=== PATIENT | female | born 1945 | race African-American/Black ===

== ENCOUNTER 2018-05-22 19:40 | Inpatient (IN) | payer OTHER ==
[~2018-05-22] VITALS: Ht 154.9 cm; Wt 30.4 kg
--- NOTE | 2018-05-22 20:11 | ED GENERAL ADULT ---
History of Present Illness General Chief Complaint: Dyspnea (COPD, CHF, Other) Stated Complaint: BIBA DIFF BREATHING Source: family Exam Limitations: unable to give history Vital Signs & Intake/Output Vital Signs & Intake/Output Vital Signs Date Time Temp Pulse Resp B/P B/P Pulse O2 O2 Flow FiO2 Mean Ox Delivery Rate 05/23 0049 89 22 164/94 96 Nasal 2.0L Cannula 05/22 2319 87 24 177/82 96 Nasal 2.0L Cannula 05/22 2157 100 26 147/73 93 Nasal 2.0L Cannula 05/22 1953 Non ReBreather 05/22 1952 97.0 97 26 165/88 100 Non ReBreather ED Intake and Output 05/23 0000 05/22 1200 Intake Total 0 Output Total Balance 0 Intake, Oral 0 Allergies Coded Allergies: nitrofurantoin (From MACROBID) (NAUSEA 05/23/18) Triage Note: PT BIBA FROM HOME. PER EMS REPORT PT IS ON "[facility]" AND THEY WERE CALLED BY VISITING RN FOR CONCERN OF INCREASED SOB. PER EMS PT IS A FULL CODE. PT ARRIVES IN NRB. SPO2 100%. RESPIRATIONS EVEN BUT LABORED. NSR ON MONITOR. Triage Nurses Notes Reviewed? yes Onset: Gradual Duration: hour(s): Timing: constant HPI: 72-year-old female with a history of Parkinson's, CHF, COPD, on home hospice presenting by ambulance with her daughter who helps to provide the history. The daughter states that she called EMS due to concerns for increased work of breathing. The patient is nonverbal at baseline and is unable to give any history. Patient has recently had a nonproductive cough over the past several days. Is not on any supplemental oxygen at baseline. No documented fevers. No sick contacts. On arrival to the emergency department patient is noted to be hypoxic on room air in the mid to high 80s, placed on 2 L of nasal cannula with improvement to the mid 90s. (Therese Wong) Past History Travel History Traveled to [place] past 21 day No Medical History Any Pertinent Medical History? see below for history Neurological: Parkinson's disease Cardiovascular: CHF Respiratory: COPD Surgical History Surgical History: non-contributory Psychosocial History What is your primary language Serbian Tobacco Use: Cognitive Impairment Family History Hx Contributory? No (Therese Wong) Review of Systems Review of Systems Constitutional: Reports: no symptoms. EENTM: Reports: no symptoms. Respiratory: Reports: see HPI. Cardiovascular: Reports: no symptoms. GI: Reports: no symptoms. Genitourinary: Reports: no symptoms. Musculoskeletal: Reports: no symptoms. Skin: Reports: no symptoms. Neurological/Psychological: Reports: no symptoms. Hematologic/Endocrine: Reports: no symptoms. Immunologic/Allergic: Reports: no symptoms. All Other Systems: Reviewed and Negative (Therese Wong) Physical Exam Physical Exam General Appearance: awake, cachetic, non-verbal Head: atraumatic, normal appearance Eyes: Bilateral: normal appearance. Neck: normal inspection Respiratory: normal breath sounds, lungs clear, mild tachypnea to low 20's Cardiovascular: regular rate/rhythm Gastrointestinal: soft, non-tender Back: normal inspection Extremities: normal inspection Neurologic/Psych: awake Skin: intact, warm/dry Core Measures ACS in differential dx? No CVA/TIA Diagnosis: No Sepsis Present: No Sepsis Focused Exam Completed? No (Thersee Wong) Progress Differential Diagnoses I considered the following diagnoses in my evaluation of the patient: [ Bronchitis versus pneumonia versus PE versus ACS] Plan of Care: Orders Procedure Date/time Status Heart Healthy Diet 05/23 B Active Patient Data 05/[address] in observation 05/23 0002 Active ED Holding Orders 05/23 0002 Active Vital Signs 05/23 0002 Active Code Status 05/23 0002 Active BLOOD CULTURE 05/22 2351 Active Add-on Test (ER Only) 05/22 2144 Active D-DIMER 05/22 2036 Complete B-TYPE NATRIURETIC PEP (BNP) 05/22 2030 Complete TROPONIN LEVEL 05/22 2010 Complete COMPREHENSIVE METABOLIC PANEL 05/22 2010 Complete CBC WITHOUT DIFFERENTIAL 05/22 2010 Complete EKG 05/22 2010 Active Intake & Output 05/22 1950 Active Current Medications Sig/Tootie Start time Last Medication Dose Stop Time Status Admin Sodium Chloride 1,000 ML Q8H 05/22 2315 AC 05/22 (Normal Saline 0.9%) 2320 Laboratory Tests 05/22/18 2103: D-Dimer High Sensitivty 1986 H 05/22/18 2030: Anion Gap 7, Estimated GFR 55 L, BUN/Creatinine Ratio 34.0 H, Glucose 121 H, Calcium 10.3 H, Total Bilirubin 0.7, AST 21, ALT 21, Alkaline Phosphatase 57, Troponin I 0.03, [id number] Pept 619 H, Total Protein 8.2, Albumin 4.2, Globulin 4.0, Albumin/Globulin Ratio 1.1, CBC w Diff NO MAN DIFF REQ, RBC 4.04 L, MCV 88.1, MCH 28.3, MCHC 32.1 L, RDW 18.2 H, MPV 8.6, Gran % 83.5 H, Lymphocytes % 10.4 L, Monocytes % 5.9, Eosinophils % 0.2, Basophils % 0, Absolute Granulocytes 7.5 H, Absolute Lymphocytes 0.9 L, Absolute Monocytes 0.5, Absolute Eosinophils 0, Absolute Basophils 0 Microbiology 05/235 BLOOD: Blood Culture - RECD 05/23 15 BLOOD: Blood Culture - RECD EKG shows sinus tach, trop 0.03 Labs show mild elevation in BNP to the 600s, significant elevation in d-dimer to 1900s, CTA of the chest ordered CTA 1. No pulmonary embolism. 2. Mild emphysema. 3. Diffuse groundglass opacities with a basilar predominance. More focal consolidation dependently in the right lower lobe. Areas of bronchial wall thickening with bronchial filling defects are also noted. The appearance favors pneumonia. Covered with ceftriaxone and azithromycin Labs also showed hypernatremia at 155, ordered for a 500 cc bolus, and then maintenance fluids at 125 an hour, will hydrate slowly given the patient's history of CHF. Discussed with the daughter at length and the daughter states that despite the patient being home hospice that her and the patient's wishes were for her to be a full code. Daughter expresses that she would like all measures taken including IV fluids, IV antibiotics, central line if needed, and resuscitative measures. Discussed with the EDMD and the hospitalist. Will admit to general medicine. Initial ED EKG: rhythm (sinus tach to 105) (Therese Wong) Departure Departure Disposition: STILL A PATIENT Condition: Stable Clinical Impression Primary Impression: Pneumonia Secondary Impressions: Acute hypoxemic respiratory failure, Hypernatremia Departure Forms: Customer Survey General Discharge Information Observation Note Spoke With: Sarah HANSON,Min Physician Advisor Notified: EDOUARD HENRY DO Place Patient In: Non-ED OBS Care Area Rationale for Observation: My rational for observation is as follows [IV antibiotics, supplemental oxygen, hemodynamic monitoring, IV fluids, serial labs for repeat electrolytes, follow- up on blood culture growth]. (Therese Wong) PA/[employer] TEAM LEADER Co-Sign Statement Statement: ED Attending supervision documentation- [X] I saw and evaluated the patient. I have also reviewed all the pertinent lab results and diagnostic results. I agree with the findings and the plan of care as documented in the PA's/[employer] TEAM LEADER's documentation. [] I have reviewed the ED Record and agree with the PA's/[employer] TEAM LEADER's documentation. [] Additions or exceptions (if any) to the PAs/[employer] TEAM LEADER's note and plan are summarized below: [] I saw and personally examined the patient and I agree with the PAs evaluation. She is cachectic with end-stage COPD now presents with pneumonia` (Edouard Henry DO) Critical Care Note Critical Care Note Critical Care Time: 30-74 min (Therese Wong)
[2018-05-22 21:09] LABS: ABSOLUTE BASOPHIL COUNT 0 /CUMM (0.0-0.2); ABSOLUTE EOSINOPHIL COUNT 0 /CUMM (0.0-0.7); ABSOLUTE GRANULOCYTE CT 7.5 /CUMM (1.4-6.5); ABSOLUTE LYMPH COUNT 0.9 /CUMM (1.2-3.4); ABSOLUTE MONOCYTE COUNT 0.5 /CUMM (0.10-0.60); BASOPHIL % 0 % (0.0-2.0); EOSINOPHIL % 0.2 % (0-5); GRANULOCYTE % 83.5 % (42.2-75.2); HEMATOCRIT 35.6 % (37-47); MEAN CORPUSCULAR HGB 28.3 PG (27.0-31.0); MEAN CORPUSCULAR HGB CONC 32.1 G/DL (33.0-37.0); MEAN CORPUSCULAR VOLUME 88.1 FL (81.0-99.0); MEAN PLATELET VOLUME 8.6 FL (7.4-10.4); PLATELET COUNT 347 /CUMM (130-400); RBC DISTRIBUTION WIDTH 18.2 % (11.5-14.5); RED BLOOD CELL CT 4.04 /CUMM (4.20-5.40)
--- NOTE | 2018-05-22 23:40 | CT SCAN REPORT ---
EXAMINATION: CT ANGIOGRAM OF THE CHEST WITH AND WITHOUT CONTRAST (CT PULMONARY ANGIOGRAM FOR PE) CLINICAL INFORMATION: Hypoxia. Elevated d-dimer. COMPARISON: None TECHNIQUE: Prior to contrast administration, noncontrast localization images were obtained. Subsequently, multidetector volumetric imaging was performed from the thoracic inlet to below the diaphragms following the administration of 95 mL Optiray 320 intravenous contrast. No contrast reaction reported. Sagittal, coronal, and MIP oblique sagittal reformatted images were obtained on the CT workstation, uploaded to PACS, and reviewed. Total exam dose-length product 120 mGy-cm. FINDINGS: QUALITY OF STUDY/CONTRAST BOLUS: Satisfactory PULMONARY ARTERIES: No central or segmental pulmonary emboli. THORACIC AORTA: No aneurysm or dissection. Mild atherosclerotic calcifications. LUNG: The central airways demonstrate minimal internal secretions but otherwise are patent. There are filling defects within multiple distal bronchi, particularly in the lower lobes. Mild centrilobular and paraseptal emphysema. Bronchial wall thickening noted with scattered diffuse groundglass opacities. These are greatest in both lower lobes with minimal dependent consolidation in the right lower lobe as well. PLEURA: No pleural effusion or pneumothorax. MEDIASTINUM: Normal heart size. No pericardial effusion. No hilar or mediastinal lymphadenopathy. No evidence of septal bowing or right heart strain. CHEST WALL/AXILLA: No axillary or internal mammary lymphadenopathy. OSSEOUS STRUCTURES: No acute or suspicious osseous abnormality. Mild scoliotic curvature of the spine with multilevel degenerative changes. UPPER ABDOMEN: Lack of intra-abdominal fat limits evaluation with no gross abnormality visualized. No reflux of contrast into the hepatic veins to suggest elevated right heart pressures. IMPRESSION: 1. No pulmonary embolism. 2. Mild emphysema. 3. Diffuse groundglass opacities with a basilar predominance. More focal consolidation dependently in the right lower lobe. Areas of bronchial wall thickening with bronchial filling defects are also noted. The appearance favors pneumonia. VTE: negative
--- NOTE | 2018-05-23 00:27 | History & Physical ---
Cain Mohr 05/23/18 0026: General Information and HPI MD Statement: I have seen and personally examined RAUL SAMSON and documented this H&P. The patient is a 72 year old F who presented with a patient stated chief complaint of [shortness of breath]. Source of Information: family Exam Limitations: unable to give history History of Present Illness: The patient is a 72-year-old female with past medical history significant for COPD, CHF, Parkinson's disease, on home hospice due to shortness of breath. The patient has minimal verbal communication and is not able to give history. She is accompanied by her daughter. The history is provided by her daughter. She has states that since she was at [facility], she noticed that there is something wrong with her respiration and "she told the nurses at hospice that she does not like her respirations". She mentions that her mother has been telling her that somebody's knocking at the door and they are here to take her away (delirium), the daughter shares the same beliefs with her mother. She has states that she has shortness of breath, increased labor of breathing, wet cough, and she has expressed that she has pain in her legs and feet's. The daughter believes that this has happened at [place]. She also states that her mother has not been eating or drinking. She is states that her mother frequently coughs while eating or drinking. She denies any sick contacts recently. On arrival in emergency department her O2 saturation was in the 80s, they placed the patient on 2 L of oxygen nasal cannula, saturation went up to the 90s. Past medical history: COPD, CHF, Parkinson's disease on levodopa, history of pneumonia in 2012 Surgical history: There is stomach was cauterized due to GI bleeding with a hemoglobin of 8 at that time, and blood transfusion Allergies: She is allergic to nitrofurantoin which causes nausea. Family history: I could not obtain any family history. Social history: She does not drink any alcohol. She has smoked 1 PPD since she was teenager and quit in 2015. She denies any recreational drug use for her mother. Imaging: Chest CTA: Has shown no pulmonary emboli, mild emphysema, diffuse groundglass opacities with basilar predominance which is in favor of pneumonia. Allergies/Medications Allergies: Coded Allergies: nitrofurantoin (From MACROBID) (NAUSEA 05/23/18) Compliance With Home Meds: UNKNOWN Observation Initial Note - I have personally examined RAUL SAMSON on 05/23/18 at 0500. The disposition of RAUL SAMSON is uncertain at this time and before a determination can be made, she requires a period of observation for the following reasons [shortness of breath] Past History Travel History Traveled to [place] past 21 day No Medical History Neurological: Parkinson's disease Cardiovascular: CHF Respiratory: COPD Surgical History Surgical History: non-contributory Review of Systems Review of Systems Constitutional: Reports: see HPI. EENTM: Reports: see HPI. Cardiovascular: Reports: see HPI. Respiratory: Reports: see HPI. GI: Reports: see HPI. Genitourinary: Reports: see HPI. Musculoskeletal: Reports: see HPI. Skin: Reports: see HPI. Neurological/Psychological: Reports: see HPI. Hematologic/Endocrine: Reports: see HPI. Immunologic/Allergic: Reports: see HPI. Exam & Diagnostic Data Last 24 Hrs of Vital Signs/I&O Vital Signs Date Time Temp Pulse Resp B/P B/P Pulse O2 O2 Flow FiO2 Mean Ox Delivery Rate 05/23 0202 97.6 80 16 144/86 97 Room Air 05/23 0049 89 22 164/94 96 Nasal 2.0L Cannula 05/22 2319 87 24 177/82 96 Nasal 2.0L Cannula 05/227 100 26 147/73 93 Nasal 2.0L Cannula 05/22 1953 Non ReBreather 05/22 1952 97.0 97 26 165/88 100 Non ReBreather Intake & Output 05/23 0800 05/23 0000 05/22 1600 Intake Total 0 Output Total Balance 0 Intake, Oral 0 Number 0 Bowel Movements Patient 59 lb Weight Physical Exam General Appearance Minimal verbal communication, severly cachectic, not oriented Skin No Rashes Skin Temp/Moisture Exam: Cool/Dry Sepsis Skin Exam (color): Normal for Ethnicity, Cyanotic HEENT Atraumatic, Not able to follow commands, slow upward gaze, with peripheral white ring, and possibly cataract Neck Supple, No LAD Lymphatic Axillary nl, Cervical nl Cardiovascular Regular Rate, Normal S1, Normal S2 Lungs Normal Air Movement, rales in right lower lobe Abdomen Normal Bowel Sounds, No Tenderness, not able to communicate verbally if there is any tenderness Neurological Minimal verbal communication Extremities Normal Pulses, 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 Based on physical examination and interview with her daughter the patient has tachypnea, shortness of breath, worsening general condition. Lab data shows an anemia with hemoglobin of 11.4 with increased RDW to 18.2. The patient has a high d-dimer up to 1985 (pulmonary emboli was ruled out with chest CTA). She has hypernatremia 155, increased chloride 122, potassium 4.0, bicarb 27, normal anion gap. BUN is 34 creatinine is 1.0. Shows prerenal azotemia. Blood sugar 121, calcium 10.3. LFTs within normal limits, surprisingly enough with albumin of 4.2. ProBNP is 619 which is assumed normal for her age. The patient had some urine output once she was moved to the floor. The patient will be observed. She will be treated with IV antibiotic for pneumonia, hydrated, and watch closely for her condition. As Ranked By This Provider Problem List: 1. Acute hypoxemic respiratory failure 2. Hypernatremia 3. Pneumonia 4. COPD (chronic obstructive pulmonary disease) 5. Parkinson disease Core Measures/Misc (06/29) Acute Coronary Syndrome ACS Diagnosis: No Congestive Heart Failure Congestive Heart Failure Diagnosis No Cerebrovascular Accident CVA/TIA Diagnosis: No VTE (View Protocol) VTE Risk Factors Age>40 No Mechanical VTE Prophylaxis d/t N/A MechProphylax Ordered No VTE Pharm Prophylaxis d/t NA PharmProphylax ordered Sepsis (View protocol) Sepsis Present: No If YES complete Sepsis Event Note If YES complete Sepsis Event Note Bam Alba MD 05/23/18 0028: Core Measures/Misc (06/29) Sepsis (View protocol) If YES complete Sepsis Event Note If YES complete Sepsis Event Note Resident Review Statement Other Findings: Patient is a 72-year-old female with past medical history of Parkinson's, CHF, COPD brought in by ambulance from home hospice for concerns of increased shortness of breath. Patient's daughter was present at time of interview and much of the history was obtained from her as patient is minimally verbal. She reports that her mom has been in hospice since February of this year. States she is currently residing at [place]. Daughter reports that she herself was concerned of her mother's breathing over the past few days and noticed increased shortness of breath and a productive cough with white sputum. States that she has not been her usual self over the past few days. Reports decreased appetite over the past week. Reports increased coughing with eating or drinking. Reports her mothe rcomplains of leg and foot pain. States patient has been stating she is hearing someone knocking at her door to take her away. Daughter reportedly states she also believes this to be true. Denies any urinary symptoms, fever/chills, abdominal discomfort or change in bowel movements. Patient in the ED received: IV Tylenol 1 g 1, 500 mL normal saline bolus, ceftriaxone and azithromycin Patient on admission: Vitals: Temperature 90.7, heart rate 87-100, respiration rate 24-26, blood pressure 177/ 82, saturating initially in the 80s on room air and in the 90s on 2 L nasal cannula Gen.: minimally verbal, cachectic HEENT: atraumatic, dry mucosal membranes CVS: RRR, S1 and S2, Lungs: Crackles at lung bases Abdomen: soft, nt, nd, + bs Labs: WBC 9 with 83.5% granulocytes, H&H 11.4 and 35.6, platelet count 347 Sodium: 155, potassium 4.0, chloride 122, bicarbonate 27, BUN 34, creatinine 1.0 , glucose 125, calcium 10.3, LFTs within normal limits, troponin 0.03, BNP 619, d-dimer 1986 Blood cultures pending Chest CTA ruled out pulmonary embolism, mild emphysema and diffuse groundglass opacities with a basilar predominance with a more focal consolidation in the right lower lobe favoring pneumonia. Patient is a 72 y/o female with PMH of COPD, CHF, Parkison's severely cachectic presenting this admission with dyspnea with hypoxia requiring 2L NC (above her baseline- not on oxygen at home) with normal WBC with a left shift, hypernatremia with no previous baseline, mild hypercalcemia, elevated d-dimer and CTA negative for PE however showing RLL consolidation. From the history patient may be aspirating on food which may have led to this current infection. Patient also appears to be dehydrated with hypernatremia. Fluid water deficit was calculated with initial goal to decrease sodium by 6-8 in the next 24 hours. Problems: 1. Delirium likely 2/2 to pneumonia 2. Aspiration pneumonia w/ RLL consolidation 3. Hypernatremia 4. Cachexia with BMP of 11.1 5. H/O COPD, CHF, Parkinsons Plan: Observe on gen med IV fluid hydration to correct sodium slowly Will monitor Na closely Urine osm and Urine lytes Urinalysis and urine cultures Follow up blood cultures IV Unasyn Swallow evaluation Nutrition consult Palliative care consulted Medication reconcilation - please call patient's mcc DVT PPx: ALPs, heparin SQ Sarah HANSON,[place] 05/23/18 0609: General Information and HPI MD Statement: I have seen and personally examined RAUL SAMSON and documented this H&P. The patient is a 72 year old F who presented with a patient stated chief complaint of [failure to thrive]. Source of Information: family Exam Limitations: unable to give history Observation Initial Note - I have personally examined RAUL SAMSON on 05/23/18 at 0609. The disposition of RAUL SAMSON is uncertain at this time and before a determination can be made, she requires a period of observation for the following reasons [] Past History Medical History Neurological: dementia, Parkinson's disease Cardiovascular: CHF Respiratory: COPD Past Family/Social History Psychosocial History Smoking Status: Former Smoker ETOH Use: denies use Illicit Drug Use: denies illicit drug use Employment History Employment Retired Review of Systems Review of Systems Constitutional: Reports: see HPI. Exam & Diagnostic Data Last 24 Hrs of Vital Signs/I&O Vital Signs Date Time Temp Pulse Resp B/P B/P Pulse O2 O2 Flow FiO2 Mean Ox Delivery Rate 05/23 020 97.6 80 16 144/86 97 Room Air 05/23 0049 89 22 164/94 96 Nasal 2.0L Cannula 05/22 2319 87 24 177/82 96 Nasal 2.0L Cannula 05/22 2157 100 26 147/73 93 Nasal 2.0L Cannula 05/22 1953 Non ReBreather 05/22 1952 97.0 97 26 165/88 100 Non ReBreather Intake & Output 05/23 0800 05/23 0000 05/22 1600 Intake Total 0 Output Total Balance 0 Intake, Oral 0 Number 0 Bowel Movements Patient 59 lb Weight Physical Exam General Appearance Minimal verbal communication, severly cachectic, not oriented Skin No Breakdown Skin Temp/Moisture Exam: Cool/Dry Sepsis Skin Exam (color): Cyanotic HEENT Atraumatic, Not able to follow commands, slow upward gaze, with peripheral white ring, and possibly cataract Neck Supple, No LAD Lymphatic Axillary nl, Cervical nl Cardiovascular Regular Rate, Normal S1, Normal S2 Lungs rales in right lower lobe Abdomen Normal Bowel Sounds, No Tenderness, not able to communicate verbally if there is any tenderness Neurological Normal Gait Extremities 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, scant muscle mass Sepsis Peripheral Pulse Location: Dorsalis Pedis Sepsis Peripheral Pulse Exam: Normal Sepsis Cap Refill Exam: <2 Sec Last 24 Hrs of Labs/Hermes: Laboratory Tests 05/22/18 2103: D-Dimer High Sensitivty 1986 H 05/22/18 2030: Anion Gap 7, Estimated GFR 55 L, BUN/Creatinine Ratio 34.0 H, Glucose 121 H, Calcium 10.3 H, Total Bilirubin 0.7, AST 21, ALT 21, Alkaline Phosphatase 57, Troponin I 0.03, Pcs-Z-Pmicvkjepny Pept 619 H, Total Protein 8.2, Albumin 4.2, Globulin 4.0, Albumin/Globulin Ratio 1.1, CBC w Diff NO MAN DIFF REQ, RBC 4.04 L, MCV 88.1, MCH 28.3, MCHC 32.1 L, RDW 18.2 H, MPV 8.6, Gran % 83.5 H, Lymphocytes % 10.4 L, Monocytes % 5.9, Eosinophils % 0.2, Basophils % 0, Absolute Granulocytes 7.5 H, Absolute Lymphocytes 0.9 L, Absolute Monocytes 0.5, Absolute Eosinophils 0, Absolute Basophils 0 Microbiology 05/235 BLOOD: Blood Culture - RECD 05/23 15 BLOOD: Blood Culture - RECD Core Measures/Misc (06/29) Sepsis (View protocol) If YES complete Sepsis Event Note If YES complete Sepsis Event Note Attending MD Review Statement Attending Statement Attending MD Statement: examined this patient, discuss w/resident/PA/ASSEMBLER SANDAL PARTS, agreed w/resident/PA/ASSEMBLER SANDAL [employer]S, amended to note Attending Assessment/Plan: This patient is a 72-year-old female with a significant past medical history for COPD, CHF, Parkinson's disease, on home hospice for end-stage chronic illness. The patient is minimally verbal and is not able to give history. She is accompanied by her daughter. This is the patients first visit to [facility] and has received all of her care in [place]. The daughter states that the patient has had increasing shortness of breath, labor of breathing, cough, and she has expressed that she has pain in her legs and feet's. She also states that her mother has not been eating or drinking and even when she take PO she coughs. Upon evaluation in the ED the patient was found to hypoxic with O2 sats in the 80s (quickly resolved with 2L NC), DDimer 1985, Hypernatremia 1955, BUN 34, CA 10.3, BNP 619, and a Chest CTA - diffuse ground glass opacities with basilar predominance which is in favor of pneumonia. The patient will be placed on Observation for pneumonia, cachexia and dehydration. IVF, Abx, palliative care consult. This is an interesting admission [facility] and managed at [facility]. They stated that the patient has never been DNR/DNI but has remained on hospice since February. The daughter seems confused on the concept of hospice and the patient is clearly in denial. The patient is nonverbal at baseline, cachectic and is clearly approaching the end of her life. The daughter insists that the patient wants to be full code and I had a very gill discussion with her about the devastating effects CPR would have on this frail elderly lady. The daughter still wants the patient full code .
[2018-05-23 02:02] VITALS: BP 144/86
[2018-05-23 06:19] VITALS: BP 130/84
[2018-05-23 09:55] LABS: ABSOLUTE BASOPHIL COUNT 0 /CUMM (0.0-0.2); ABSOLUTE EOSINOPHIL COUNT 0 /CUMM (0.0-0.7); ABSOLUTE LYMPH COUNT 0.5 /CUMM (1.2-3.4); ABSOLUTE MONOCYTE COUNT 0.4 /CUMM (0.10-0.60); BASOPHIL % 0 % (0.0-2.0); EOSINOPHIL % 0 % (0-5); GRANULOCYTE % 88.7 % (42.2-75.2); HEMATOCRIT 31.1 % (37-47); MEAN CORPUSCULAR HGB 28.7 PG (27.0-31.0); MEAN CORPUSCULAR HGB CONC 32.3 G/DL (33.0-37.0); MEAN CORPUSCULAR VOLUME 88.9 FL (81.0-99.0); PLATELET COUNT 296 /CUMM (130-400); RBC DISTRIBUTION WIDTH 18.4 % (11.5-14.5); WHITE BLOOD CELL COUNT 7.9 /CUMM (4.8-10.8)
[2018-05-23 15:21] VITALS: BP 152/84
--- NOTE | 2018-05-23 22:01 | PN- Att Addend ---
Attending Addendum Attending Brief Note 72F PMH COPD, CHF, Parkinson's disease, dementia, in hospice, brought in by family for labored breathing, found to have bilateral pneumonia on imaging. Patient is minimally verbal at baseline and is unable to give history. She appears cachectic and ill. Per daughter, her breathing has been worse lately. She has not noticed sputum production. She has noticed increased confusion. Afebrile overnight, stable vitals, saturating 94% on 2L, sodium 158. Appears dehydrated by exam. 1. Bilateral lower lobe pneumonia 2. Hypernatremia 3. Dehydration Plan - Continue observation on general medicine - Will continue goals of care discussion with family, as there appears to be some disconnect between the purpose of hospice, the overall prognosis of the patient, and goals going forward. Patient remains full code. - Continue Unasyn - Start 1/2 NS at 75mL/hr - Monitor sodium - Continue home medications - DVT PPx
[2018-05-23 22:03] VITALS: BP 140/80
[2018-05-24 07:23] VITALS: BP 140/76
[2018-05-24 08:34] LABS: ABSOLUTE BASOPHIL COUNT 0 /CUMM (0.0-0.2); ABSOLUTE EOSINOPHIL COUNT 0 /CUMM (0.0-0.7); ABSOLUTE GRANULOCYTE CT 9.4 /CUMM (1.4-6.5); ABSOLUTE LYMPH COUNT 0.4 /CUMM (1.2-3.4); ABSOLUTE MONOCYTE COUNT 0.2 /CUMM (0.10-0.60); BASOPHIL % 0 % (0.0-2.0); EOSINOPHIL % 0.1 % (0-5); GRANULOCYTE % 93.6 % (42.2-75.2); HEMATOCRIT 28.9 % (37-47); MEAN CORPUSCULAR HGB 28.6 PG (27.0-31.0); MEAN CORPUSCULAR HGB CONC 32.6 G/DL (33.0-37.0); MEAN CORPUSCULAR VOLUME 87.7 FL (81.0-99.0); MEAN PLATELET VOLUME 8.8 FL (7.4-10.4); PLATELET COUNT 301 /CUMM (130-400); RBC DISTRIBUTION WIDTH 18.4 % (11.5-14.5); RED BLOOD CELL CT 3.29 /CUMM (4.20-5.40)
--- NOTE | 2018-05-24 13:35 | PN- Housestaff ---
eDlmar HANSON,Wendyi 05/24/18 1334: Subjective Follow-up For: hypokalemia sob Subjective: Saw pt at bedside this AM. Her IV access fell out this AM. While she was geting her labs this AM they carlos manuel it from the same side her potassium was running so her K went from 2.9 to 8. She is asymptomatic. EKG and repeat K pending Review of Systems Constitutional: Reports: no symptoms. Objective Last 24 Hrs of Vital Signs/I&O Vital Signs Date Time Temp Pulse Resp B/P B/P Pulse O2 O2 Flow FiO2 Mean Ox Delivery Rate 05/24 1444 98.5 78 20 135/80 93 Nasal Cannula 05/24 1123 98 Nasal 2.0L Cannula 05/24 0723 98.1 69 18 140/76 99 05/24 0000 Nasal 2.0L Cannula 05/23 2203 98.1 80 18 140/80 92 Nasal Cannula 05/23 2055 95 Nasal 2.0L Cannula 05/23 1600 Nasal 2.0L Cannula Intake & Output 05/24 1600 05/24 0800 05/24 0000 Intake Total 650 300 300 Output Total Balance 650 300 300 Intake, IV 300 300 200 Intake, Oral 350 0 100 Physical Exam General Appearance: Alert, Oriented X3, Cooperative, No Acute Distress Skin: No Significant Lesion HEENT: Atraumatic, PERRLA Cardiovascular: Normal S1, Normal S2, No Murmurs Lungs: Normal Air Movement Abdomen: Soft, No Tenderness Extremities: No Edema Assessment/Plan Assessment: This is a 72 y/o female with PMH of COPD, CHF, Parkison's, who came in with CC dyspnea with hypoxia requiring and noted to have hypernatremia and a CT showing c/o RLL consolidation. F Problems: 1. Delirium likely 2/2 to pneumonia * currently resovled 2. Aspiration pneumonia w/ RLL consolidation * Con't unasyn 3. Hypernatremia: Improving appropriately; con't current reg. Na is 151 currently. down from 154 and 158 respectively. * Check q8 4. H/O COPD, CHF, Parkinsons: * Chronic and stable 5. Hyperkalemia/Hypokalemia: Went from 2.9 to 7 as the K was drawn from same side that IV K was running. * Recheck K stat * EKG 6. Anemia: Hb 9.4. * Con't monitor 7. FTT/Cachexia: * Nutrition consult * Palliative care consulted * DVT PPx: ALPs, heparin SQ Problem List: 1. Pneumonia Pain Ratin Pain Location: none Pain Goal: Remain pain free Pain Plan: none Tomorrow's Labs & Rationales: cbc bep Solomon HANSON,[place] 05/24/18 1752: Attending MD Review Statement Attending Statement Attending MD Statement: examined this patient, discuss w/resident/PA/STATISTICAL CLERK, agreed w/resident/PA/STATISTICAL CLERK, reviewed EMR data (avail) Attending Assessment/Plan: 72F PMH COPD, CHF, Parkinson's disease, dementia, in hospice, brought in by family for labored breathing, found to have bilateral pneumonia on imaging. Patient is minimally verbal at baseline and is unable to give history. She appears cachectic and ill. Per daughter, her breathing has been worse lately. She has not noticed sputum production. She has noticed increased confusion. Afebrile overnight, stable vitals, saturating 94% on 2L, sodium 158. Appears dehydrated by exam. Unchanged today. Labs were drawn upstream from IV in which she was receiving potassium, suspect false reading, will repeat potassium. Daughter was unavailable for discussion today. 1. Bilateral lower lobe pneumonia 2. Hypernatremia 3. Dehydration 4. Failure to thrive Plan - Full admission to general medicine for further treatment, goals of care discussion, palliative care consult, continued treatment of pneumonia - Will continue goals of care discussion with family, as there appears to be some disconnect between the purpose of hospice, the overall prognosis of the patient, and goals going forward. Patient remains full code. - Continue Unasyn - Continue 1/2 NS at 75mL/hr - Nutrition consult - Palliative care consult - Monitor sodium - Continue home medications - DVT PPx
[2018-05-24 14:44] VITALS: BP 135/80
[2018-05-24 22:19] VITALS: BP 138/60
[2018-05-25 06:15] VITALS: BP 160/86
--- NOTE | 2018-05-25 06:35 | PN- Housestaff ---
Cain Mohr 05/25/18 0634: Subjective Follow-up For: Pneumonia Hypernatremia COPD Parkinson's disease Malnutrition Subjective: I visited the patient this morning, she was laying back in her bed. Alert, in no acute distress. She was able to communicate minimally verbal on admission. Comparing to admission she is able to communicate more verbally. Based on the nurses report that there was an episode of blood pressure 160/80 in the morning. I talked to her daughter to obtain consent for medical record release [facility]. Review of Systems Constitutional: Reports: see HPI. Objective Last 24 Hrs of Vital Signs/I&O Vital Signs Date Time Temp Pulse Resp B/P B/P Pulse O2 O2 Flow FiO2 Mean Ox Delivery Rate 05/25 1455 98.3 91 18 158/72 100 05/25 0800 99 Nasal 2.0L Cannula 05/25 0615 98.8 81 16 160/86 99 Room Air 05/25 0000 Nasal 2.0L Cannula 05/24 2219 99.0 95 20 138/60 99 Room Air 05/24 1911 98 Nasal 2.0L Cannula Intake & Output 05/25 1600 05/25 0800 05/25 0000 Intake Total 350 400 Output Total Balance 350 400 Intake, IV 350 400 Number 0 Bowel Movements Patient 59 lb Weight Physical Exam General Appearance: Alert, Minimal verbal communication Skin: No Rashes Skin Temp/Moisture Exam: Warm/Dry Sepsis Skin Exam (color): Normal for Ethnicity HEENT: Atraumatic, Upward nystagmus, less than on admission Cardiovascular: Regular Rate, Normal S1, Normal S2 Lungs: Normal Air Movement, Right lower lobe crackles Abdomen: Normal Bowel Sounds, Soft, No Tenderness Extremities: Deformed Assessment/Plan Assessment: This is a 72 y/o female with PMH of COPD, CHF, Parkison's, who came in with CC dyspnea with hypoxia requiring and noted to have hypernatremia and a CT showing c/o RLL consolidation. Delirium: The patient was delirious on admission, and able to minimally communicate verbally. Plan: Delirium his current results, the patient is able to communicate verbally but still limited Aspiration pneumonia: Based on the imaging of chest Plan: Con't unasyn Hypernatremia: On admission it was 155, 153, then 151. Plan: Check at 6 PM, and in the morning. COPD, CHF, Parkinsons: Plan: Chronic and stable Hyperkalemia/Hypokalemia: Went from 2.9 to 7 as the K was drawn from same side that IV K was running. Plan: Recheck K stat, EKG Anemia: Hb 9.4. Which dropped to 8.6. Plan: Con't monitor FTT/Cachexia: She has a BMI of 11.1, weight of 59 pounds. Plan: Nutrition consult, Palliative care consulted Problem List: 1. Pneumonia 2. Acute hypoxemic respiratory failure 3. Hypernatremia 4. COPD (chronic obstructive pulmonary disease) 5. Parkinson disease Pain Ratin Pain Location: The patient is not able to communicate properly Pain Goal: Pain 4 or less Pain Plan: Oxycodone Acetaminophen Tomorrow's Labs & Rationales: BEP CBC Augusta HANSON,[place] 05/25/182122: Attending MD Review Statement Attending Statement Attending MD Statement: examined this patient, discuss w/resident/PA/PLANT OPERATOR/SHIFT SUPERVISOR, agreed w/resident/PA/PLANT OPERATOR/SHIFT SUPERVISOR, discussed with family, reviewed EMR data (avail), discussed with nursing, discussed with case mgmt, reviewed images, amended to note Attending Assessment/Plan: The patient was seen and discussed with house staff. Agree with the above assessment and plan. Had discussion with the patient's daughter who has POA (she will bring in papers). She was uncertain regarding the "Hospice" status established at the patient's prior STR ([facility]) and we had some goals of care discussion. She was advised regarding Palliative Care consult with Dr. Sam who may be better able to clarify with her. The patient had only been home with her daughter for approximately 1 week prior to being admitted. Speech eval appreciated and will follow. Not able to swallow at present.
--- NOTE | 2018-05-25 08:08 | PN- Student ---
See Addendum Rad Barnes 05/25/18 0757: Subjective Subjective: Pt seen and examined at bedside. She was previously documented as non verbal but she is answering yes/no questions today and saying short sentences. She had no acute events overnight. She has no complaints of pain or discomfort today. She denies headache, chest pain, SOB, abd pain, extremity pain. Her daughter is at the bedside and says that her mother is doing slightly better than yesterday but still has a nonproductive cough. Objective Objective: Vital Signs Date Time Temp Pulse Resp B/P B/P Pulse O2 O2 Flow FiO2 Mean Ox Delivery Rate 05/25 08 99 Nasal 2.0L Cannula 05/25 0615 98.8 81 16 160/86 99 Room Air 05/25 0000 Nasal 2.0L Cannula 05/24 2219 99.0 95 20 138/60 99 Room Air 05/24 1911 98 Nasal 2.0L Cannula 05/24 1600 Nasal 2.0L Cannula 05/24 1444 98.5 78 20 135/80 93 Nasal Cannula Intake & Output 05/25 1600 05/25 0800 05/25 0000 Intake Total 350 400 Output Total Balance 350 400 Intake, IV 350 400 Number 0 Bowel Movements Patient 59 lb Weight Physical Exam Gen - NAD, comfortable, drowsy but verbal and answering yes/no questions with very soft speech, cachectic appearance Psych - appropriate affect Neuro - AOx3 CV - RRR no MRG Pulm - crackles at bases BL, CTA in upper lobes BL, no increased work of breathing and on 2L NC Abd - soft, nontender, nondistended Ext - extremities x4 are contracted with hands contracted and not able to grasp, baseline according to daughter, warm and well perfused Results Results: Laboratory Tests 05/25/18 0859: Anion Gap 6, Estimated GFR > 60, BUN/Creatinine Ratio 28.6 H, CBC w Diff MAN DIFF ORDERED, RBC 3.03 L, MCV 87.7, MCH 28.3, MCHC 32.3 L, RDW 17.8 H, MPV 9.4, Gran % 92.3 H, Lymphocytes % 6.4 L, Monocytes % 1.2 L, Eosinophils % 0.1 , Basophils % 0, Absolute Granulocytes 10.5 H, Absolute Lymphocytes 0.7 L, Absolute Monocytes 0.1, Absolute Eosinophils 0, Absolute Basophils 0, Platelet Estimate ADEQUATE, Polychromasia 1+, Hypochromic-Microcytic 1+, Anisocytosis 1+ 05/24/18 2015: Anion Gap 6, Estimated GFR > 60, BUN/Creatinine Ratio 41.7 H 05/24/18 1620: Anion Gap 8, Estimated GFR > 60, BUN/Creatinine Ratio 41.7 H, Troponin I < 0.01 05/24/18 0745: Anion Gap 3 L, Estimated GFR > 60, BUN/Creatinine Ratio 38.3 H, CBC w Diff NO MAN DIFF REQ, RBC 3.29 L, MCV 87.7, MCH 28.6, MCHC 32.6 L, RDW 18.4 H, MPV 8.8, Gran % 93.6 H, Lymphocytes % 4.3 L, Monocytes % 2.0, Eosinophils % 0.1, Basophils % 0, Absolute Granulocytes 9.4 H, Absolute Lymphocytes 0.4 L, Absolute Monocytes 0.2, Absolute Eosinophils 0, Absolute Basophils 0 05/24/18 0025: Anion Gap 4 L, Estimated GFR > 60, BUN/Creatinine Ratio 38.6 H 05/23/18 1930: Anion Gap 6, Estimated GFR > 60, BUN/Creatinine Ratio 44.3 H, Serum Osmolality 342 H, Troponin I 0.02 05/23/18 1820: Urine Color YEL, Urine Clarity CLEAR, Urine pH 6.0, Ur Specific [place] 1.010, Urine Protein NEG, Urine Ketones NEG, Urine Nitrite NEG, Urine Bilirubin NEG, Urine Urobilinogen 0.2, Ur Leukocyte Esterase TRACE H, Ur Microscopic SEDIMENT EXAMINED, Urine RBC 1-3, Urine WBC 1-3 H, Ur Epithelial Cells RARE, Urine Bacteria RARE H, Urine Hemoglobin NEG, Urine Glucose NEG 05/23/18 1820: Urine Osmolality 506, Ur Random Creatinine 40.2, Ur Random Sodium 33, Ur Random Potassium 42.2, Fraction Sodium Excret 0.4 05/23/18 1415: Anion Gap 6, Estimated GFR > 60, BUN/Creatinine Ratio 48.6 H, Calcium 9.4 05/23/18 0750: Anion Gap 7, Estimated GFR > 60, BUN/Creatinine Ratio 41.3 H, CBC w Diff NO MAN DIFF REQ, RBC 3.50 L, MCV 88.9, MCH 28.7, MCHC 32.3 L, RDW 18.4 H, MPV 9.0, Gran % 88.7 H, Lymphocytes % 6.8 L, Monocytes % 4.5, Eosinophils % 0, Basophils % 0, Absolute Granulocytes 7.0 H, Absolute Lymphocytes 0.5 L, Absolute Monocytes 0.4, Absolute Eosinophils 0, Absolute Basophils 0 05/22/18 2103: D-Dimer High Sensitivty 1986 H 05/22/18 2030: Anion Gap 7, Estimated GFR 55 L, BUN/Creatinine Ratio 34.0 H, Glucose 121 H, Calcium 10.3 H, Total Bilirubin 0.7, AST 21, ALT 21, Alkaline Phosphatase 57, Troponin I 0.03, Iuv-G-[id number] Pept 619 H, Total Protein 8.2, Albumin 4.2, Globulin 4.0, Albumin/Globulin Ratio 1.1, CBC w Diff NO MAN DIFF REQ, RBC 4.04 L, MCV 88.1, MCH 28.3, MCHC 32.1 L, RDW 18.2 H, MPV 8.6, Gran % 83.5 H, Lymphocytes % 10.4 L, Monocytes % 5.9, Eosinophils % 0.2, Basophils % 0, Absolute Granulocytes 7.5 H, Absolute Lymphocytes 0.9 L, Absolute Monocytes 0.5, Absolute Eosinophils 0, Absolute Basophils 0 Microbiology 05/23 1820 URINE ROUT: Urine Culture - COMP 05/23 45 BLOOD: Blood Culture - RES 05/23 15 BLOOD: Blood Culture - RES Assessment/Plan Assessment: Pt is a 72YOF with pmh of Parkinson's, CHF, COPD not on home O2 who is being cared for with home hospice. She was BIBA to the ED 3 days ago d/t SOB at home. Her daughter called for help even though the patient is on hospice care. On arrival, the pt was placed on 2L O2 NC because she was satting in the 80s and sats increased to 90s. She was found on CT to have BL lower lobe pnuemonia likely d/t aspiration, hypernatremia, and dehydration with symptoms of delerium. PE was r/o. According to the pt's daughter, the pt had been living in [facility] for the past 1yr. She fell in May 2017 and was sent to [facility] for rehab, and then admitted longterm when she failed to progress after the fall. The pt resided there until 1wk ago when her daughter took her home to her daughter's house as her mother qualified for release. Hospice care was started by [facility] at [facility] and helped the daughter get the pt set up at home. However, the daughter describes that she was not clear on the goals of hospice care and that when her mother began to have difficulty breathing at home, she called the hospice nurse but did not agree with the nurse's assessment. Then, she brought her mother in. Pt was admitted to [facility] and started on Unasyn and IV 1/2 NS. Hypernatremia to 153 and delirium persist. Today, pt has hypokalemia to 3.4 and leukocytosis to 11.4. H/H decreased from 9.4/28.9 to 8.6/26.6. Today, swallow eval was performed. Pt did not initiate any swallowing. We have placed a consult with palliative care to discuss pt's goals of care with her daughter. We will also retrieve pt's medical records from [facility]. Consent for medical records signed by daughter. Problem List 1. Pneumonia Pt has CT evidence of BL pneumonia which is likely d/t aspiration. Leukocytosis today at 11.4 likely related to this. - continue unasyn IV and albuterol PRN - keep NPO as per swallow - switch to D5 1/2NS so pt is getting calories 2. Hypernatremia and Hypokalemia Pt's hypernatremia likely d/t dehydration d/t poor mental status. She developed hypokalemia today likely d/t fluids. - continue IV hydration - f/u Mag level and replete K through IV - f/u BEP tomorrow - monitor for signs of fluid overload d/t comorbid CHF 3. Delirium Pt's delirium likely d/t hypernatremia though some AMS is likely baseline. - monitor BEP - monitor pt's clinical status 4. CHF/COPD Pt is not having any exascerbations at this time. Stable. 5. Parkinson's Pt is stable at this time. Diet: NPO DVT Prophy: Heparin Code: Full
[2018-05-25 10:54] LABS: ABSOLUTE BASOPHIL COUNT 0 /CUMM (0.0-0.2); ABSOLUTE EOSINOPHIL COUNT 0 /CUMM (0.0-0.7); ABSOLUTE GRANULOCYTE CT 10.5 /CUMM (1.4-6.5); ABSOLUTE LYMPH COUNT 0.7 /CUMM (1.2-3.4); ABSOLUTE MONOCYTE COUNT 0.1 /CUMM (0.10-0.60); BASOPHIL % 0 % (0.0-2.0); EOSINOPHIL % 0.1 % (0-5); GRANULOCYTE % 92.3 % (42.2-75.2); HEMATOCRIT 26.6 % (37-47); MEAN CORPUSCULAR HGB 28.3 PG (27.0-31.0); MEAN CORPUSCULAR HGB CONC 32.3 G/DL (33.0-37.0); MEAN CORPUSCULAR VOLUME 87.7 FL (81.0-99.0); MEAN PLATELET VOLUME 9.4 FL (7.4-10.4); PLATELET COUNT 270 /CUMM (130-400); RBC DISTRIBUTION WIDTH 17.8 % (11.5-14.5); RED BLOOD CELL CT 3.03 /CUMM (4.20-5.40); WHITE BLOOD CELL COUNT 11.4 /CUMM (4.8-10.8)
[2018-05-25 14:55] VITALS: BP 158/72
[2018-05-25 21:10] VITALS: BP 140/62
[2018-05-25 21:15] VITALS: BP 140/62
[2018-05-26 06:13] VITALS: BP 136/58
--- NOTE | 2018-05-26 06:39 | PN- Housestaff ---
Cain Mohr 05/26/18 0638: Subjective Follow-up For: Pneumonia Acute hypoxemic respiratory failure Hypernatremia COPD Parkinson's disease Severe protein-calorie malnutrition Subjective: I visited the patient this morning, she was in no evident distress. She remains on 1L O2 via NC down from 2L yesterday and was breathing comfortably. According to her nurse and daughter who stayed the night, she had no acute overnight events. Pt requests lemonade this morning. She continues to have a mild cough but no chest pain. Based on the results from swallow test, she should be kept n.p.o. Stool guaiac test was positive. Review of Systems Constitutional: Reports: see HPI. Objective Last 24 Hrs of Vital Signs/I&O Vital Signs Date Time Temp Pulse Resp B/P B/P Pulse O2 O2 Flow FiO2 Mean Ox Delivery Rate 05/26 1539 98.2 72 18 140/62 96 Nasal Cannula 05/26 1056 94 Nasal 1.0L Cannula 05/26 0800 Room Air 1.0L 05/26 0613 98.7 66 18 136/58 96 05/26 0000 Nasal 1.0L Cannula 05/25 2115 98.2 79 16 140/62 97 Nasal Cannula 05/25 1925 98 Nasal 2.0L Cannula Intake & Output 05/26 1600 05/26 0800 05/26 0000 Intake Total 600 300 Output Total Balance 600 300 Intake, IV 600 300 Intake, Oral 0 Number 1 Bowel Movements Physical Exam General Appearance: The patient was alert and orient to place and person Skin: No Rashes Skin Temp/Moisture Exam: Warm/Dry Sepsis Skin Exam (color): Normal for Ethnicity Cardiovascular: Regular Rate, Normal S1, Normal S2 Lungs: Clear to Auscultation, Decreased bilateral breathing sounds Abdomen: Normal Bowel Sounds, Soft, No Tenderness Assessment/Plan Assessment: This is a 72 y/o female with PMH of COPD, CHF, Parkison's, who came in with CC dyspnea with hypoxia requiring and noted to have hypernatremia and a CT showing c/o RLL consolidation. She came in with acute hypoxemic respiratory failure. which responded to 2L of O2 via nasal cannula. She has a history of COPD but was not on O2 at home. Delirium: The patient was delirious on admission, and able to minimally communicate verbally. Plan: Delirium his current results, the patient is able to communicate verbally but still limited Aspiration pneumonia: Based on the imaging of chest. She has failed swallow test so she is NPO and the modified swallow test will be done tomorrow. Plan: Con't unasyn Hypernatremia: On admission it was 155--->153 ---> 151 ---> 150 ---> Plan: Check at 6 PM, and in the morning. COPD, CHF, Parkinsons: Plan: Chronic and stable, she is on 1 L O2 via nasal cannula. Hyperkalemia/Hypokalemia: Went from 2.9 to 7 as the K was drawn from same side that IV K was running. Plan: Recheck K stat, EKG She had a potassium of 3.0, 40 mEq of potassium was administered in IV with a rate of 100 mL/h after confirming pharmacy. Anemia: Hb 9.4. Which dropped to 8.6. Plan: Con't monitor FTT/Cachexia: She has a BMI of 11.1, weight of 59 pounds. She has severe protein -caloric malnutrition. Plan: Nutrition consult, Palliative care consulted Problem List: 1. COPD (chronic obstructive pulmonary disease) 2. Hypernatremia 3. Parkinson disease 4. Acute hypoxemic respiratory failure 5. Pneumonia Pain Ratin Pain Location: The patient cannot communicate Pain Goal: Pain 4 or less Pain Plan: Oxycodone Acetaminophen Tomorrow's Labs & Rationales: CBC BEP Augusta HANSON,[place] 05/26/18 1452: Attending MD Review Statement Attending Statement Attending MD Statement: examined this patient, discuss w/resident/PA/NUCLEAR LOGGING ENGINEER, agreed w/resident/PA/NUCLEAR LOGGING ENGINEER, discussed with family, reviewed EMR data (avail), discussed with nursing, discussed with case mgmt, amended to note Attending Assessment/Plan: The patient was seen and discussed with house staff, nursing, case management and family. Some improvement with IV hydration and antibiotics. Awaiting Palliative Care consult.
--- NOTE | 2018-05-26 07:18 | PN- Student ---
Rad Barnes 05/26/18 0714: Subjective Subjective: Pt seen and examined at bedside this morning. She was in no evident distress. She remains on 1L O2 via NC down from 2L yesterday and was breathing comfortably. According to her nurse and daughter who stayed the night, she had no acute overnight events. Pt requests lemonade this morning so we will reconsult swallow. She continues to have a mild cough but no chest pain. Objective Objective: Vital Signs Date Time Temp Pulse Resp B/P B/P Pulse O2 O2 Flow FiO2 Mean Ox Delivery Rate 05/26 06 98.7 66 18 136/58 96 05/26 0000 Nasal 1.0L Cannula 05/25 2115 98.2 79 16 140/62 97 Nasal Cannula 05/25 1925 98 Nasal 2.0L Cannula 05/25 1455 98.3 91 18 158/72 100 05/25 0800 99 Nasal 2.0L Cannula 05/25 08 99 Nasal 2.0L Cannula Intake & Output 05/26 0800 05/26 0000 05/25 1600 Intake Total 600 300 765 Output Total Balance 600 300 765 Intake, IV 600 300 525 Intake, Oral 0 240 Number 1 Bowel Movements Patient 59 lb Weight PE Gen - NAD, sleeping comfortably but did not rouse from sleep for the exam, cachectic Neuro - AOx3 CV - RRR no MRG Pulm - quiet breath sounds but clear to auscultation BL Abd - soft, nontender, nondistended, +BS Ext - warm and well perfused, radial pulses 2+ BL, DP pulses 2+ BL, ALPS in place and functioning Results Results: Laboratory Tests 05/26/18 0809: Anion Gap 2 L, Estimated GFR > 60, BUN/Creatinine Ratio 24.0, CBC w Diff MAN DIFF ORDERED, RBC 2.80 L, MCV 87.2, MCH 28.3, MCHC 32.5 L, RDW 17.9 H, MPV 9.1, Gran % 85.4 H, Lymphocytes % 13.0 L, Monocytes % 1.2 L, Eosinophils % 0.3, Basophils % 0.1, Absolute Granulocytes 6.4, Absolute Lymphocytes 1.0 L, Absolute Monocytes 0.1, Absolute Eosinophils 0, Absolute Basophils 0, Platelet Estimate ADEQUATE, Hypochromic-Microcytic 2+, Anisocytosis 1+ 05/25/18 1730: Anion Gap 4 L, Estimated GFR > 60, BUN/Creatinine Ratio 28.3 H 05/25/18 0859: Anion Gap 6, Estimated GFR > 60, BUN/Creatinine Ratio 28.6 H, Magnesium 2.3, CBC w Diff MAN DIFF ORDERED, RBC 3.03 L, MCV 87.7, MCH 28.3, MCHC 32.3 L, RDW 17.8 H, MPV 9.4, Gran % 92.3 H, Lymphocytes % 6.4 L, Monocytes % 1.2 L, Eosinophils % 0.1, Basophils % 0, Absolute Granulocytes 10.5 H, Absolute Lymphocytes 0.7 L, Absolute Monocytes 0.1, Absolute Eosinophils 0, Absolute Basophils 0, Platelet Estimate ADEQUATE, Polychromasia 1+, Hypochromic- Microcytic 1+, Anisocytosis 1+ 05/24/18 2015: Anion Gap 6, Estimated GFR > 60, BUN/Creatinine Ratio 41.7 H 05/24/18 1620: Anion Gap 8, Estimated GFR > 60, BUN/Creatinine Ratio 41.7 H, Troponin I < 0.01 05/24/18 0745: Anion Gap 3 L, Estimated GFR > 60, BUN/Creatinine Ratio 38.3 H, CBC w Diff NO MAN DIFF REQ, RBC 3.29 L, MCV 87.7, MCH 28.6, MCHC 32.6 L, RDW 18.4 H, MPV 8.8, Gran % 93.6 H, Lymphocytes % 4.3 L, Monocytes % 2.0, Eosinophils % 0.1, Basophils % 0, Absolute Granulocytes 9.4 H, Absolute Lymphocytes 0.4 L, Absolute Monocytes 0.2, Absolute Eosinophils 0, Absolute Basophils 0 05/24/18 0025: Anion Gap 4 L, Estimated GFR > 60, BUN/Creatinine Ratio 38.6 H 05/23/18 1930: Anion Gap 6, Estimated GFR > 60, BUN/Creatinine Ratio 44.3 H, Serum Osmolality 342 H, Troponin I 0.02 05/23/18 1820: Urine Color YEL, Urine Clarity CLEAR, Urine pH 6.0, Ur Specific [place] 1.010, Urine Protein NEG, Urine Ketones NEG, Urine Nitrite NEG, Urine Bilirubin NEG, Urine Urobilinogen 0.2, Ur Leukocyte Esterase TRACE H, Ur Microscopic SEDIMENT EXAMINED, Urine RBC 1-3, Urine WBC 1-3 H, Ur Epithelial Cells RARE, Urine Bacteria RARE H, Urine Hemoglobin NEG, Urine Glucose NEG 05/23/18 1820: Urine Osmolality 506, Ur Random Creatinine 40.2, Ur Random Sodium 33, Ur Random Potassium 42.2, Fraction Sodium Excret 0.4 05/23/18 1415: Anion Gap 6, Estimated GFR > 60, BUN/Creatinine Ratio 48.6 H, Calcium 9.4 Microbiology 05/23 1820 URINE ROUT: Urine Culture - COMP Assessment/Plan Assessment: Assessment: Pt is a 72YOF with pmh of Parkinson's, CHF, COPD not on home O2 who is being cared for with home hospice. She was BIBA to the ED 4 days ago d/t SOB at home. Her daughter called for help even though the patient is on hospice care. On arrival, the pt was placed on 2L O2 NC because she was satting in the 80s and sats increased to 90s. She was found on CT to have BL lower lobe pnuemonia likely d/t aspiration. She also presented with hypernatremia, and dehydration with symptoms of delerium. PE was r/o. According to the pt's daughter, the pt had been living in [facility] for the past 1yr. She fell in May 2017 and was sent to [facility] for rehab, and then admitted residential when she failed to progress after the fall. The pt resided there until 1wk ago when her daughter took her home to her daughter's house as her mother qualified for release. Hospice care was started by [facility] at [facility] and helped the daughter get the pt set up at home. However, the daughter describes that she was not clear on the goals of hospice care and that when her mother began to have difficulty breathing at home, she called the hospice nurse but did not agree with the nurse's assessment. Then, she brought her mother in. Pt was admitted to [facility] and started on Unasyn and IV 1/2 NS. Hypernatremia to 150 and delirium persist. Today, pt has hypokalemia to 3.0 from 3.4 yesterday. H /H decreased from 8.6/26.6 to 7.9/24.4. Yesterday, swallow eval was performed. Pt did not initiate any swallowing. Will reevaluate today. We have placed a consult with palliative care to discuss pt's goals of care with her daughter planned for today. We will also retrieve pt's medical records from [facility]. Consent for medical records signed by daughter. POA from daughter will be added to medical record today. Problem List 1. Pneumonia Pt has CT evidence of BL pneumonia which is likely d/t aspiration. Leukocytosis has resolved. - continue unasyn IV and albuterol PRN - keep NPO as per swallow but reevaluate today as pt is requesting to drink - continue D5 1/2NS so pt is getting calories 2. Hypernatremia and Hypokalemia Pt's hypernatremia likely d/t dehydration d/t poor mental status. Hypokalemia persists. Mag is WNL so likely is not contributing to refractory hypokalemia. - continue IV hydration with D5 1/2NS - replete K through IV 40mEq through 1L IV - f/u BEP tomorrow - monitor for signs of fluid overload d/t comorbid CHF 3. Anemia Pt's H/H decreasing so FOBT was done yesterday and was positive. CRC is a concern, but as discussion of care goals is anticipated with family today we can plan for this problem after the discussion. - type and screen done in case pt needs transfusion - transfuse if Hb <7 - trend H/H 4. Delirium Pt's delirium was likely d/t hypernatremia though some AMS is likely baseline. Today, delirium is resolved as pt is AOx3. - monitor pt's clinical status - f/u BEP tomorrow 5. CHF/COPD Pt is not having any exascerbations at this time. Stable. - continue albuterol PRN 5. Parkinson's Pt is stable at this time. She is not on any medications. Diet: NPO DVT Prophy: Heparin Code: Full
[2018-05-26 08:28] LABS: ABSOLUTE BASOPHIL COUNT 0 /CUMM (0.0-0.2); ABSOLUTE EOSINOPHIL COUNT 0 /CUMM (0.0-0.7); ABSOLUTE GRANULOCYTE CT 6.4 /CUMM (1.4-6.5); ABSOLUTE MONOCYTE COUNT 0.1 /CUMM (0.10-0.60); BASOPHIL % 0.1 % (0.0-2.0); EOSINOPHIL % 0.3 % (0-5); GRANULOCYTE % 85.4 % (42.2-75.2); HEMATOCRIT 24.4 % (37-47); MEAN CORPUSCULAR HGB 28.3 PG (27.0-31.0); MEAN CORPUSCULAR HGB CONC 32.5 G/DL (33.0-37.0); MEAN CORPUSCULAR VOLUME 87.2 FL (81.0-99.0); MEAN PLATELET VOLUME 9.1 FL (7.4-10.4); PLATELET COUNT 210 /CUMM (130-400); RBC DISTRIBUTION WIDTH 17.9 % (11.5-14.5); WHITE BLOOD CELL COUNT 7.6 /CUMM (4.8-10.8)
[2018-05-26 15:39] VITALS: BP 140/62
--- NOTE | 2018-05-26 19:36 | Cons- Palliative Care ---
General Information and HPI Consulting Request Date of Consult: 05/26/18 Requested By: Galen Deras MD Reason for Consult: care/transition planning Source patient, family Exam Limitations unable to give history, not alert/orientated, confusion, physical impairment Associated Symptoms: tiredness/fatigue/drowsy, delirium History of Present Illness: 72F admitted to from home for weakness. 1.5 hour conversation held with daughter to gather detailed history and to investment counselor re: goals of care, disposition, symptom management. Initital discussions held with Dr. Koko Smith, Dr. aGlen Deras who both have initiated goals of care discussions. Patient was previously living in her own apartment where she received some support services via home health aides, home nursing. Daughter reports that pt's son was also living in this apartment but provided no care to patient. She also reports that "children" were being dropped off at apartment as part of a home care program - but it is unclear what role patient was playing in this. Daughter states that "the whole situation was chaotic and needed to be changed". On day of admission to hospital, daughter states that she was trying to get patient into her bedroom to get into bed to rest upon which she discovered patient's son intoxicated and sleeping in her bed. She insisted he remove himself from room at which time he got up, but apparently fell also knocking patient to ground. Daughter states that patient has not been well since. She was transferred to a [facility]) and after a period of time, patient was recommended for hospice care with a terminal diagnosis of failure to thrive. Throughout this time, daughter intended for pateint to return home and approximately 10 days ago made arrangements for such. Daughter states that she did not understand role of hospice and was surprised that the hospice providers were not trying to improve her mother's medical condition (throughout this time, she believed her mother's advance directives to indicate pursuit of CPR). Since admission, the patient has been treated for dehydration manifesting as elevated Na level, aspiration pneumonia, dysphagia, and a sacral decubitus ulcer. We discussed extensively my recommendation against the placement of a PEG tube as this rerpresents a mechanism which although could provide a more efficient means of providing nutrition, it would almost certainly not improve the patient' s quality of life and may in fact contribute to a worsening quality of life by circumventing the patient's ability to enjoy PO intake. Additionally, a PEG tube will not alter the probability of recurrent episodes of aspiration pneumonia. We discussed the use of CPR at the time that the patient's heart function ceases and again my recommendation to avoid this as it almost certainly will not provide a meaningful benefit to the patient and will likely result in pain. While her daughter states "my mother wants to live", I explained the differences between "spiritual living" as compared with "physical living" and that these procedures will almost certainly NOT contribute to her desire to "live" in the spiritual or functional sense, that even if these procedures were to achieve their intended goals, they might contribute some degree of physical living but would take away her spiritual living. We have agreed to work toward a goal of medical improvement (as the team is doing) to the best extent possible with a dispositional goal of returning home. It is not clear at this time whether a resmption of hospice care will resume. Allergies/Medications Allergies: Coded Allergies: nitrofurantoin (From MACROBID) (NAUSEA 05/23/18) Current Medications: Current Medications Sig/T[place]ie Start time Last Medication Dose Route Stop Time Status Admin Acetaminophen 650 MG Q6P PRN 05/23 0330 AC 05/24 PO 0840 Acetaminophen 1,000 MG Q6P PRN 05/23 0330 AC 05/26 IV 0141 Albuterol Sulfate 3 ML Q4P PRN 05/23 1600 DC INH Ampicillin Sodium/ 1,500 MG Q12H 05/23 1230 AC 05/26 Sulbactam Sodium IV 1223 Sodium Chloride 100 ML Artificial Tears 2 GTT TID 05/26 1400 AC 05/26 OPH 1429 Dextrose/Sodium 1,000 ML Q10H 05/26 0930 DC 05/26 Chloride IV 05/26 1059 1116 Dextrose/Sodium 1,000 ML Q13H 05/25 1045 DC 05/26 Chloride IV 0013 Heparin Sodium 5,000 UNIT Q8 05/23 0600 AC 05/26 (Porcine) SC 1410 Oxycodone HCl 5 MG Q6P PRN 05/23 0530 AC PO Patient Medication 1 ED ONE ONE 05/26 1515 DC 05/26 Teaching ED 05/26 1516 1707 Potassium Chloride 40 MEQ Q10H 05/26 1100 AC 05/26 Dextrose/Sodium 1,000 ML IV 1141 Chloride Potassium Chloride 40 MEQ ONCE ONE 05/26 1000 CAN IV 05/26 1001 Review of Systems Review of Systems: unable to assess ROS due to medical condition Past History Medical History Neurological: dementia, Parkinson's disease EENT: NONE Cardiovascular: CHF Respiratory: COPD Gastrointestinal: NONE Hepatic: NONE Renal: urinary incontinence Musculoskeletal: NONE Psychiatric: NONE Endocrine: NONE Blood Disorders: NONE Cancer(s): NONE HAND COPER/Reproductive: NONE Surgical History Surgical History: non-contributory Psychosocial History Smoking Status: Former Smoker ETOH Use: denies use Illicit Drug Use: denies illicit drug use Karnofsky Performance Scale: 20 Living Will? unknown Power of Parish Nurse/HCP? unknown Functional Ability ADLs Needs Assist: dressing, eating, toileting, bathing. Ambulation: non-ambulatory IADLs Needs Assist: shopping, housework, finances, food prep, telephone, transportation, medication admin. Employment History Employment: Retired Exam & Diagnostic Data Last 24 Hrs of Vitals/I&Os: Vital Signs Date Time Temp Pulse Resp B/P B/P Pulse O2 O2 Flow FiO2 Mean Ox Delivery Rate 05/30 0606 98.3 72 18 128/68 96 05/30 0000 97 Room Air 05/29 2221 98.2 78 19 124/70 100 Nasal Cannula 05/29 1431 98.3 82 18 130/80 97 Intake & Output 05/30 1600 05/30 0800 05/30 0000 Intake Total 450 400 Output Total Balance 450 400 Intake, IV 450 400 Patient 77 lb Weight Weight Bed scale Measurement Method Physical Exam: frail, thin female in bed, NAD HEENT - NCAT, anicteric sclerae, bitemporal wasting Neck - supple, FROM Lung - decreased BS CV - RRR, +S1, S2 Abd - soft Extr - No c/c/e Skin -rash Back - sacral decubitus ulcer, duoderm in place Neuro - arousable, confused, immobile Assessment/Plan Assessment 72F admitted w/ hypernatremia, aspiration pneumonia, failure to thrive, parkinsonism Patient's Condition: serious Prognosis: grave Is Patient Decisional? no Case Discussed With: patient, family, attending, specialist(s) Goals of Care: life-prolonging Other Recommendations: 1. Continue optimization of medical condition as you are doing 2. Defer PEG for now until further discussions re: risks/benefits/alternatives fully explored 3. Pastoral care to assist with spiritual care for patient/family 4. Avoid additional discussions re: CPR with daughter unless there is a significant change in condition 5. Case management to assist with developing a robust, supportive discharge plan to home Consult Acknowledgment - Thank you for your consult request.
[2018-05-26 22:06] VITALS: BP 130/80
[2018-05-27 06:31] VITALS: BP 136/74
--- NOTE | 2018-05-27 06:52 | PN- Housestaff ---
Cain Mohr 05/27/18 0652: Subjective Follow-up For: Pneumonia Acute hypoxemic respiratory failure Hypernatremia COPD Parkinson's disease Severe protein-calorie malnutrition Subjective: I visited with the patient this morning, she was lying back in her bed, in no acute distress. She was alert and oriented to time, place, and person. She recognizes me and knows that she is in hospital in [place]. She knows the name of the bank president. She reports that she had pain in both her toes at some point last night but not this morning. I checked her feet, ALPS was too tight, so I lossened it. Review of Systems Constitutional: Reports: see HPI. Objective Last 24 Hrs of Vital Signs/I&O Vital Signs Date Time Temp Pulse Resp B/P B/P Pulse O2 O2 Flow FiO2 Mean Ox Delivery Rate 05/27 1507 98.4 84 18 124/68 99 Room Air 05/27 0800 Nasal 1.0L Cannula 05/27 0631 98.6 81 18 136/74 92 Nasal Cannula 05/27 0000 Nasal 1.0L Cannula 05/26 2206 98.3 80 19 130/80 91 Nasal Cannula Intake & Output 05/27 1600 05/27 0800 05/27 0000 Intake Total 350 600 300 Output Total Balance 350 600 300 Intake, IV 350 600 300 Intake, Oral 0 0 Number 0 Bowel Movements Physical Exam General Appearance: Alert, Oriented X3, Cooperative, No Acute Distress Skin: No Rashes Skin Temp/Moisture Exam: Warm/Dry Sepsis Skin Exam (color): Normal for Ethnicity HEENT: Atraumatic Cardiovascular: Regular Rate, Normal S1, Normal S2 Lungs: Right sided ronchi and crackles Abdomen: Normal Bowel Sounds, Soft, No Tenderness Assessment/Plan Assessment: This is a 72 y/o female with PMH of COPD, CHF, Parkison's, who came in with CC dyspnea with hypoxia requiring and noted to have hypernatremia and a CT showing c/o RLL consolidation. She came in with acute hypoxemic respiratory failure. which responded to 2L of O2 via nasal cannula. She has a history of COPD but was not on O2 at home. Delirium: The patient was delirious on admission, she has improved, she is alert and oriented now. Plan: We will reassess her condition. Aspiration pneumonia: Based on the imaging of chest. She has failed swallow test so she is NPO and the modified swallow test will be done. Plan: Con't unasyn Hypernatremia: On admission it was 155--->153 ---> 151 ---> 150 ---> 147 Plan: Check at 6 PM, and in the morning. COPD, CHF, Parkinsons: Plan: Chronic and stable, she is on 1 L O2 via nasal cannula. Hyperkalemia/Hypokalemia: Went from 2.9 to 7 as the K was drawn from same side that IV K was running. Plan: Recheck K stat, EKG She had a potassium of 3.0, 40 mEq of potassium was administered in IV with a rate of 100 mL/h after confirming pharmacy. Potassium is now 3.9 Anemia: Hb 9.4. Which dropped to 8.6. Hemoglobin was 8.1. Plan: Con't monitor Problem List: 1. Hypernatremia 2. Pneumonia 3. Acute hypoxemic respiratory failure 4. COPD (chronic obstructive pulmonary disease) 5. Parkinson disease 6. Severe malnutrition Pain Ratin Pain Location: Not applicable Pain Goal: Remain pain free Pain Plan: Not applicable Tomorrow's Labs & Rationales: Electrolytes, hemoglobin Galen Deras MD 05/27/182052: Attending MD Review Statement Attending Statement Attending MD Statement: examined this patient, discuss w/resident/PA/CHURCH ADMINISTRATOR, agreed w/resident/PA/CHURCH ADMINISTRATOR, discussed with family, reviewed EMR data (avail), discussed with nursing, discussed with case mgmt, amended to note Attending Assessment/Plan: The patient was seen and discussed with house staff. Will continue current Rx. Modified barium swallow tomorrow. Will follow Na level (decreasing) and H/H. Adding IV Protonix due to heme positive stool and slight drop H/H (may be dilutional).
--- NOTE | 2018-05-27 07:09 | PN- Student ---
Rad Barnes 05/27/18 0704: Subjective Subjective: Pt seen and examined this morning. She was alert and able to tell me that she was not in any pain. She denied chest pain, SOB, abdominal pain, and leg pain. Her daughter and her nurse deny any acute overnight events. Objective Objective: Vital Signs Date Time Temp Pulse Resp B/P B/P Pulse O2 O2 Flow FiO2 Mean Ox Delivery Rate 05/27 08 Nasal 1.0L Cannula 05/27 0631 98.6 81 18 136/74 92 Nasal Cannula 05/27 0000 Nasal 1.0L Cannula 05/26 2206 98.3 80 19 130/80 91 Nasal Cannula 05/26 1539 98.2 72 18 140/62 96 Nasal Cannula Intake & Output 05/27 1600 05/27 0805/27 0000 Intake Total 600 300 Output Total Balance 600 300 Intake, IV 600 300 Intake, Oral 0 0 Number 0 Bowel Movements PE Gen - Cachectic woman, NAD, resting Psych - appropriate affect, slow responses Neuro - AO to person and place but not to time HEENT - sunken eyes, PEERLA, sclera are anicteric, mucous membranes are moist CV - Pulm - Abd - soft, nontender, nondistended Ext - warm and well perfused, contractures same as baseline in U and L exts BL Results Results: Laboratory Tests 05/27/18 0734: Anion Gap 3 L, Estimated GFR > 60, BUN/Creatinine Ratio 18.0, CBC w Diff NO MAN DIFF REQ, RBC 2.83 L, MCV 86.8, MCH 28.6, MCHC 32.9 L, RDW 17.5 H, MPV 8.9, Gran % 81.9 H, Lymphocytes % 14.0 L, Monocytes % 3.8, Eosinophils % 0.3, Basophils % 0, Absolute Granulocytes 6.2, Absolute Lymphocytes 1.1 L, Absolute Monocytes 0.3, Absolute Eosinophils 0, Absolute Basophils 0 05/26/18 1800: Anion Gap 6, Estimated GFR > 60, BUN/Creatinine Ratio 15.0 05/26/18 0809: Anion Gap 2 L, Estimated GFR > 60, BUN/Creatinine Ratio 24.0, CBC w Diff MAN DIFF ORDERED, RBC 2.80 L, MCV 87.2, MCH 28.3, MCHC 32.5 L, RDW 17.9 H, MPV 9.1, Gran % 85.4 H, Lymphocytes % 13.0 L, Monocytes % 1.2 L, Eosinophils % 0.3, Basophils % 0.1, Absolute Granulocytes 6.4, Absolute Lymphocytes 1.0 L, Absolute Monocytes 0.1, Absolute Eosinophils 0, Absolute Basophils 0, Platelet Estimate ADEQUATE, Hypochromic-Microcytic 2+, Anisocytosis 1+ 05/25/18 1730: Anion Gap 4 L, Estimated GFR > 60, BUN/Creatinine Ratio 28.3 H 05/25/18 0859: Anion Gap 6, Estimated GFR > 60, BUN/Creatinine Ratio 28.6 H, Magnesium 2.3, CBC w Diff MAN DIFF ORDERED, RBC 3.03 L, MCV 87.7, MCH 28.3, MCHC 32.3 L, RDW 17.8 H, MPV 9.4, Gran % 92.3 H, Lymphocytes % 6.4 L, Monocytes % 1.2 L, Eosinophils % 0.1, Basophils % 0, Absolute Granulocytes 10.5 H, Absolute Lymphocytes 0.7 L, Absolute Monocytes 0.1, Absolute Eosinophils 0, Absolute Basophils 0, Platelet Estimate ADEQUATE, Polychromasia 1+, Hypochromic- Microcytic 1+, Anisocytosis 1+ 05/24/18 2015: Anion Gap 6, Estimated GFR > 60, BUN/Creatinine Ratio 41.7 H 05/24/18 1620: Anion Gap 8, Estimated GFR > 60, BUN/Creatinine Ratio 41.7 H, Troponin I < 0.01 Assessment/Plan Assessment: Assessment: Pt is a 72YOF with pmh of Parkinson's, CHF, COPD not on home O2 who is being cared for with home hospice. She was BIBA to the ED 4 days ago d/t SOB at home. Her daughter called for help even though the patient is on hospice care. On arrival, the pt was placed on 2L O2 NC because she was satting in the 80s and sats increased to 90s. She was found on CT to have BL lower lobe pnuemonia likely d/t aspiration. She also presented with hypernatremia, and dehydration with symptoms of delerium. PE was r/o. According to the pt's daughter, the pt had been living in [facility] for the past 1yr. She fell in May 2017 and was sent to [facility] for rehab, and then admitted [facility] when she failed to progress after the fall. The pt resided there until 1wk ago when her daughter took her home to her daughter's house as her mother qualified for release. Hospice care was started by [facility] at [facility] and helped the daughter get the pt set up at home. However, the daughter describes that she was not clear on the goals of hospice care and that when her mother began to have difficulty breathing at home, she called the hospice nurse but did not agree with the nurse's assessment. Then, she brought her mother in. Pt was admitted to [facility] and started on Unasyn and IV 1/2 NS. Hypernatremia to 146 down from 158 at peak persists. Today, hypokelemia has resolved to 3.9. H/H decreased from 8.6/26.6 to 7.9/24.4 yesterday and is 8.1/24.5 today. Swallow eval was performed. Pt did not initiate any swallowing. Daughter is POA. Palliative care consult has occurred. Daughter believes that patient's wishes are to remain treating for cure. We will keep patient full code. PEG tube has been discussed. We will defer at this time in order for daughter to make a decision. Pt's medical records from [facility] have been retrieved for further information. Consent for medical records signed by daughter. Problem List 1. Pneumonia Pt has CT evidence of BL pneumonia which is likely d/t aspiration. Leukocytosis has resolved. - continue unasyn IV - keep NPO as per swallow but reevaluate today as pt is requesting to drink - continue D5 1/2NS with 40mEq KCl 2. Hypernatremia and Hypokalemia Pt's hypernatremia likely d/t dehydration d/t poor mental status. Hypokalemia has resolved today. Mag is WNL so likely is not contributing to refractory hypokalemia. - continue IV hydration with D5 1/2NS w/ 40mEq KCl - f/u BEP tomorrow - monitor for signs of fluid overload d/t comorbid CHF 3. Anemia Pt's H/H decreasing so FOBT was done yesterday and was positive. CRC is a concern, but as discussion of care goals is anticipated with family today we can plan for this problem after the discussion. - type and screen done in case pt needs transfusion on 05/26/18 - transfuse if Hb <7 - trend H/H - continue pantoprazole 40mg qday IV 4. Delirium Pt's delirium was likely d/t hypernatremia though some AMS is likely baseline. Pt is AOx person and place. Not oriented to time. - monitor pt's clinical status - f/u BEP tomorrow 5. Failure to Thrive/Cachexia Pt presented with severe protein-caloric malnutrition likely d/t AMS and her difficulty swallowing which has now been evaluated twice. - continue to monitor weight - keep NPO as swallowing has not improved - yesterday, swallow f/u recommended MBS to further evaluate the patient's ability to swallow objectively 6. CHF/COPD Pt is not having any exascerbations at this time. Stable. - continue albuterol PRN 7. Parkinson's Pt is stable at this time. She is not on any medications. Diet: NPO DVT Prophy: Heparin Code: Full
[2018-05-27 08:11] LABS: ABSOLUTE BASOPHIL COUNT 0 /CUMM (0.0-0.2); ABSOLUTE EOSINOPHIL COUNT 0 /CUMM (0.0-0.7); ABSOLUTE GRANULOCYTE CT 6.2 /CUMM (1.4-6.5); ABSOLUTE LYMPH COUNT 1.1 /CUMM (1.2-3.4); ABSOLUTE MONOCYTE COUNT 0.3 /CUMM (0.10-0.60); BASOPHIL % 0 % (0.0-2.0); EOSINOPHIL % 0.3 % (0-5); GRANULOCYTE % 81.9 % (42.2-75.2); HEMATOCRIT 24.5 % (37-47); MEAN CORPUSCULAR HGB 28.6 PG (27.0-31.0); MEAN CORPUSCULAR HGB CONC 32.9 G/DL (33.0-37.0); MEAN CORPUSCULAR VOLUME 86.8 FL (81.0-99.0); MEAN PLATELET VOLUME 8.9 FL (7.4-10.4); RBC DISTRIBUTION WIDTH 17.5 % (11.5-14.5); RED BLOOD CELL CT 2.83 /CUMM (4.20-5.40); WHITE BLOOD CELL COUNT 7.6 /CUMM (4.8-10.8)
[2018-05-27 08:54] LABS: PLATELET COUNT 272 /CUMM (130-400)
[2018-05-27 15:07] VITALS: BP 124/68
[2018-05-27 23:41] VITALS: BP 120/60
[2018-05-28 05:56] VITALS: BP 120/66
--- NOTE | 2018-05-28 06:35 | PN- Housestaff ---
Cain Mohr 05/28/18 0634: Subjective Follow-up For: Pneumonia Acute hypoxemic respiratory failure Hypernatremia COPD Parkinson's disease Severe protein-calorie malnutrition Subjective: I saw the patient this morning, she was lying back in her bed. Alert and oriented and in no acute distress. Her condition has improved comparing to the day of admission. She can communicate verbally but slowly. She did not complain of any major issues overnight, she just mentioned the tightness of the alps on her legs. She also mentioned that she is still coughing. No report from the nurse about major complaints overnight. She was asking if she can see her grandchildren. Review of Systems Constitutional: Reports: see HPI. Objective Last 24 Hrs of Vital Signs/I&O Vital Signs Date Time Temp Pulse Resp B/P B/P Pulse O2 O2 Flow FiO2 Mean Ox Delivery Rate 05/28 0556 98.2 73 18 120/66 96 Nasal 1.0L Cannula 05/28 0000 Nasal 1.0L Cannula 05/27 2341 98.8 75 18 120/60 98 Nasal Cannula 05/27 1600 Nasal 1.0L Cannula 05/27 1507 98.4 84 18 124/68 99 Room Air Intake & Output 05/28 1600 05/28 0800 05/28 0000 Intake Total 400 300 Output Total Balance 400 300 Intake, IV 400 300 Intake, Oral 0 0 Physical Exam General Appearance: Alert, Cooperative, No Acute Distress Skin: No Rashes Skin Temp/Moisture Exam: Warm/Dry Sepsis Skin Exam (color): Normal for Ethnicity HEENT: Atraumatic Neck: Supple Cardiovascular: Regular Rate, Normal S1, Normal S2 Lungs: Normal Air Movement, MODERATE RIGHT SIDED CRACKLES AND RONCHI Abdomen: Normal Bowel Sounds, Soft, No Tenderness Extremities: contracture deformities in extremities Assessment/Plan Assessment: This is a 72 y/o female with PMH of COPD, CHF, Parkison's, who came in with CC dyspnea with hypoxia requiring and noted to have hypernatremia and a CT showing c/o RLL consolidation. She came in with acute hypoxemic respiratory failure. which responded to 2L of O2 via nasal cannula. She has a history of COPD but was not on O2 at home. Delirium: The patient was delirious on admission, she has improved, she is alert and oriented now. Plan: We will reassess her condition. Aspiration pneumonia: Based on the imaging of chest. She has failed swallow test so she is NPO and the modified swallow test was done. She had slow swallowing, she can tolerate p.o. with thick fluids and puree. Plan: Con't unasyn. Chest x-ray will be obtained tomorrow. Hypernatremia: On admission it was 155--->153 ---> 151 ---> 150 ---> 147--->144 Plan: Check at 6 PM, and in the morning. COPD, CHF, Parkinsons: Plan: Chronic and stable, she is on 1 L O2 via nasal cannula. Hyperkalemia/Hypokalemia: Went from 2.9 to 7 as the K was drawn from same side that IV K was running. Plan: Recheck K stat, EKG She had a potassium of 3.0, 40 mEq of potassium was administered in IV with a rate of 100 mL/h after confirming pharmacy. Potassium Anemia: Hb 9.4. Which dropped to 8.6. Hemoglobin was 8.1 ---> 7.4 Plan: Con't monitor Problem List: 1. Acute hypoxemic respiratory failure 2. COPD (chronic obstructive pulmonary disease) 3. Severe malnutrition 4. Hypernatremia 5. Pneumonia 6. Parkinson disease Pain Ratin Pain Location: Not applicable Pain Goal: Remain pain free Pain Plan: Not applicable Tomorrow's Labs & Rationales: CBC BEP Galen Deras MD 05/28/18 9355: Attending MD Review Statement Attending Statement Attending MD Statement: examined this patient, discuss w/resident/PA/JAVA SCALA DEVELOPER, agreed w/resident/PA/JAVA SCALA DEVELOPER, reviewed EMR data (avail), discussed with nursing, discussed with case mgmt, amended to note Attending Assessment/Plan: The patient was seen and discussed with house staff, nursing, case management and speech therapy. Palliative care follow-up appreciated. Able to begin feeding modified diet as noted above. Will observe po intake. H/H dropped due to blood loss anemia and dilution. Will follow-up H/H later today and may need transfusion if Hgb <=7. Oral PPI. Will need to discuss possibility of Home Hospice as is unlikely she will be able to take enough nutrition by mouth.
[2018-05-28 07:36] LABS: ABSOLUTE BASOPHIL COUNT 0 /CUMM (0.0-0.2); ABSOLUTE EOSINOPHIL COUNT 0.1 /CUMM (0.0-0.7); ABSOLUTE GRANULOCYTE CT 4.1 /CUMM (1.4-6.5); ABSOLUTE LYMPH COUNT 1.1 /CUMM (1.2-3.4); ABSOLUTE MONOCYTE COUNT 0.2 /CUMM (0.10-0.60); BASOPHIL % 0.2 % (0.0-2.0); GRANULOCYTE % 74.9 % (42.2-75.2); MEAN CORPUSCULAR HGB 28.3 PG (27.0-31.0); MEAN CORPUSCULAR HGB CONC 32.9 G/DL (33.0-37.0); MEAN CORPUSCULAR VOLUME 85.9 FL (81.0-99.0); MEAN PLATELET VOLUME 9.5 FL (7.4-10.4); PLATELET COUNT 258 /CUMM (130-400); RBC DISTRIBUTION WIDTH 17.2 % (11.5-14.5); RED BLOOD CELL CT 2.61 /CUMM (4.20-5.40); WHITE BLOOD CELL COUNT 5.5 /CUMM (4.8-10.8)
[2018-05-28 07:55] LABS: HEMATOCRIT 22.5 % (37-47)
--- NOTE | 2018-05-28 08:26 | PN- Student ---
Subjective Subjective: Pt seen and examined this morning. She was alert and able to tell me that she was not in any pain. She denied chest pain, SOB, abdominal pain, and leg pain. Her daughter and her nurse deny any acute overnight events. The patient is asking for food and water. She says she is hungry. Objective Objective: Vital Signs Date Time Temp Pulse Resp B/P B/P Pulse O2 O2 Flow FiO2 Mean Ox Delivery Rate 05/28 0556 98.2 73 18 120/66 96 Nasal 1.0L Cannula 05/28 0000 Nasal 1.0L Cannula 05/27 2341 98.8 75 18 120/60 98 Nasal Cannula 05/27 1600 Nasal 1.0L Cannula 05/27 1507 98.4 84 18 124/68 99 Room Air Intake & Output 05/28 1600 05/28 0800 05/28 0000 Intake Total 400 300 Output Total Balance 400 300 Intake, IV 400 300 Intake, Oral 0 0 PE Gen - Cachectic woman, NAD, resting Psych - appropriate affect, slow responses Neuro - AO to person but not to place or to time HEENT - sunken eyes, PEERLA, sclera are anicteric, mucous membranes are moist CV - RRR no MRG Pulm - crackles present on the R throughout, L CTA, reduced air entry BL, 1L O2 via NC Abd - soft, nontender, nondistended Ext - warm and well perfused, contractures same as baseline in U and L exts BL Results Results: Laboratory Tests 05/28/18 0638: Sodium Pending, Potassium Pending, Chloride Pending, Carbon Dioxide Pending, Anion Gap Pending, BUN Pending, Creatinine Pending, BUN/Creatinine Ratio Pending , CBC w Diff NO MAN DIFF REQ, RBC 2.61 L, MCV 85.9, MCH 28.3, MCHC 32.9 L, RDW 17.2 H, MPV 9.5, Gran % 74.9, Lymphocytes % 20.2 L, Monocytes % 3.7, Eosinophils % 1.0, Basophils % 0.2, Absolute Granulocytes 4.1, Absolute Lymphocytes 1.1 L, Absolute Monocytes 0.2, Absolute Eosinophils 0.1, Absolute Basophils 0 05/27/18 1834: Anion Gap 2 L, Estimated GFR > 60, BUN/Creatinine Ratio 18.0 05/27/18 0734: Anion Gap 3 L, Estimated GFR > 60, BUN/Creatinine Ratio 18.0, CBC w Diff NO MAN DIFF REQ, RBC 2.83 L, MCV 86.8, MCH 28.6, MCHC 32.9 L, RDW 17.5 H, MPV 8.9, Gran % 81.9 H, Lymphocytes % 14.0 L, Monocytes % 3.8, Eosinophils % 0.3, Basophils % 0, Absolute Granulocytes 6.2, Absolute Lymphocytes 1.1 L, Absolute Monocytes 0.3, Absolute Eosinophils 0, Absolute Basophils 0 05/26/18 1800: Anion Gap 6, Estimated GFR > 60, BUN/Creatinine Ratio 15.0 05/26/18 0809: Anion Gap 2 L, Estimated GFR > 60, BUN/Creatinine Ratio 24.0, CBC w Diff MAN DIFF ORDERED, RBC 2.80 L, MCV 87.2, MCH 28.3, MCHC 32.5 L, RDW 17.9 H, MPV 9.1, Gran % 85.4 H, Lymphocytes % 13.0 L, Monocytes % 1.2 L, Eosinophils % 0.3, Basophils % 0.1, Absolute Granulocytes 6.4, Absolute Lymphocytes 1.0 L, Absolute Monocytes 0.1, Absolute Eosinophils 0, Absolute Basophils 0, Platelet Estimate ADEQUATE, Hypochromic-Microcytic 2+, Anisocytosis 1+ 05/25/18 1730: Anion Gap 4 L, Estimated GFR > 60, BUN/Creatinine Ratio 28.3 H 05/25/18 0859: Anion Gap 6, Estimated GFR > 60, BUN/Creatinine Ratio 28.6 H, Magnesium 2.3, CBC w Diff MAN DIFF ORDERED, RBC 3.03 L, MCV 87.7, MCH 28.3, MCHC 32.3 L, RDW 17.8 H, MPV 9.4, Gran % 92.3 H, Lymphocytes % 6.4 L, Monocytes % 1.2 L, Eosinophils % 0.1, Basophils % 0, Absolute Granulocytes 10.5 H, Absolute Lymphocytes 0.7 L, Absolute Monocytes 0.1, Absolute Eosinophils 0, Absolute Basophils 0, Platelet Estimate ADEQUATE, Polychromasia 1+, Hypochromic- Microcytic 1+, Anisocytosis 1+ Assessment/Plan Assessment: Assessment: Pt is a 72YOF with pmh of Parkinson's, CHF, COPD not on home O2 who is being cared for with home hospice. She was BIBA to the ED 4 days ago d/t SOB at home. Her daughter called for help even though the patient is on hospice care. On arrival, the pt was placed on 2L O2 NC because she was satting in the 80s and sats increased to 90s. She was found on CT to have BL lower lobe pnuemonia likely d/t aspiration. She also presented with hypernatremia, and dehydration with symptoms of delerium. PE was r/o. According to the pt's daughter, the pt had been living in [facility] for the past 1yr. She fell in May 2017 and was sent to [facility] for rehab, and then admitted [employer] when she failed to progress after the fall. The pt resided there until 1wk ago when her daughter took her home to her daughter's house as her mother qualified for release. Hospice care was started by [facility] at [facility] and helped the daughter get the pt set up at home. However, the daughter describes that she was not clear on the goals of hospice care and that when her mother began to have difficulty breathing at home, she called the hospice nurse but did not agree with the nurse's assessment. Then, she brought her mother in. Pt was admitted to [facility] and started on Unasyn and IV 1/2 NS. Hypernatremia resolved to 141 down from 158 at peak. Hypokelemia has resolved to 4.2. H/H decreased to 7.4/22.5 today from yesterday's 8.1/24.5. Swallow eval was performed and pt reevaluated yesteray 05/27/18. Pt did not initiate any swallowing. Barium swallow to be performed today as pt is improved and asking for food and water. Daughter is POA. Palliative care consult has occurred. Daughter believes that patient's wishes are to remain treating for cure. We will keep patient full code. PEG tube has been discussed. We will defer at this time in order for daughter to make a decision. Pt's medical records from [facility] and [facility] have been retrieved for further information. Consent for medical records signed by daughter. Problem List 1. Pneumonia Pt has CT evidence of BL pneumonia which is likely d/t aspiration. Leukocytosis has resolved. - continue unasyn IV day 4 today - continue D5 1/2NS with 40mEq KCl 2. Hypernatremia and Hypokalemia Pt's hypernatremia likely d/t dehydration d/t poor mental status. Hypokalemia has resolved today. Mag is WNL so likely is not contributing to refractory hypokalemia. - both have resolved at this time, but pt is at risk for aspiration - continue IV hydration with D5 1/2NS w/ 40mEq KCl - f/u BEP tomorrow - monitor for signs of fluid overload d/t comorbid CHF 3. Anemia Pt's H/H decreasing so FOBT was done yesterday and was positive. CRC is a concern, but as discussion of care goals is anticipated with family today we can plan for this problem after the discussion. - type and screen done in case pt needs transfusion on 05/26/18 - repeat FOBT at next BM - repeat CBC this evening - transfuse if Hb <7 - trend H/H again tomorrow - continue pantoprazole 40mg qday IV 4. Delirium Pt's delirium was likely d/t hypernatremia though some AMS is likely baseline. Pt is AOx person today. - monitor pt's clinical status - f/u BEP tomorrow 5. Failure to Thrive/Cachexia Pt presented with severe protein-caloric malnutrition likely d/t AMS and her difficulty swallowing which has now been evaluated twice. - continue to monitor weight - Barium swallow today - address diet based on MBS 6. CHF/COPD Pt is not having any exascerbations at this time. Stable. - continue albuterol PRN 7. Parkinson's Pt is stable at this time. She is not on any medications. Diet: NPO DVT Prophy: Heparin Code: Full
--- NOTE | 2018-05-28 10:45 | RADIOLOGY REPORT ---
EXAMINATION: XR MODIFIED BARIUM SWALLOW CLINICAL INFORMATION: Aspiration pneumonia. COMPARISON: CTA of the chest dated 05/22/2018. TECHNIQUE: A modified barium swallow was performed with speech pathologist in attendance. Pur?e, honey thick, and nectar thick consistencies were given to the patient and the swallowing mechanism was observed fluoroscopically with several spot films taken using the last image hold feature. FLUOROSCOPY TIME: 2 minutes 14 seconds. FINDINGS: With all consistencies, the oropharyngeal phase of swallowing is delayed with slow posterior oral bolus propagation and premature spillage of contrast into the valleculae. No aspiration or penetration is seen. With honey and nectar consistency, premature spillage of the contrast into the piriform sinuses is seen. With all consistencies, slight pooling of contrast in the valleculae is seen with complete clearing upon swallowing. There is no laryngeal or nasopharyngeal aspiration seen. IMPRESSION: 1. Delayed oral bolus propagation to the pharynx. 2. Premature spillage of contrast into the valleculae and with honey and nectar consistency premature spillage of contrast into the piriform sinuses. 3. No aspiration or penetration. Speech pathologist assessment issued separately.
[2018-05-28 15:32] VITALS: BP 120/70
[2018-05-28 19:57] LABS: ABSOLUTE BASOPHIL COUNT 0 /CUMM (0.0-0.2); ABSOLUTE EOSINOPHIL COUNT 0.1 /CUMM (0.0-0.7); ABSOLUTE GRANULOCYTE CT 5.3 /CUMM (1.4-6.5); ABSOLUTE MONOCYTE COUNT 0.3 /CUMM (0.10-0.60); BASOPHIL % 0 % (0.0-2.0); GRANULOCYTE % 79.1 % (42.2-75.2); MEAN CORPUSCULAR HGB 28.2 PG (27.0-31.0); MEAN CORPUSCULAR HGB CONC 32.9 G/DL (33.0-37.0); MEAN CORPUSCULAR VOLUME 85.8 FL (81.0-99.0); MEAN PLATELET VOLUME 9.1 FL (7.4-10.4); PLATELET COUNT 302 /CUMM (130-400); RBC DISTRIBUTION WIDTH 17.4 % (11.5-14.5); RED BLOOD CELL CT 2.57 /CUMM (4.20-5.40); WHITE BLOOD CELL COUNT 6.7 /CUMM (4.8-10.8)
[2018-05-28 21:46] VITALS: BP 144/70
[2018-05-29 06:38] VITALS: BP 136/78
--- NOTE | 2018-05-29 06:57 | PN- Housestaff ---
See Addendum Subjective Follow-up For: Aspiration Pneumonia Acute hypoxemic respiratory failure Hypernatremia COPD Parkinson's disease Severe protein-calorie malnutrition Subjective: I visited the patient this morning, she was lying back in her bed, alert and oriented, she recognized the medical student and me, she believes she is ready to go home. She did not have any major complaints overnight other than the pain in her toes. Based on the report from the nurse she had one more episode of bowel movement which was guaiac positive, heparin was held. Review of Systems Constitutional: Reports: see HPI. Objective Last 24 Hrs of Vital Signs/I&O Vital Signs Date Time Temp Pulse Resp B/P B/P Pulse O2 O2 Flow FiO2 Mean Ox Delivery Rate 05/29 08 Nasal 1.0L Cannula 05/29 0638 98.2 79 18 136/78 99 05/29 0000 99 Nasal 1.5L Cannula 05/28 2146 98.1 81 18 144/70 99 Nasal 1.5L Cannula 05/28 1600 Nasal 1.0L Cannula 05/28 1532 98.6 65 18 120/70 99 Intake & Output 05/29 1600 05/29 0800 05/29 0000 Intake Total 150 400 150 Output Total Balance 150 400 150 Intake, IV 400 150 Intake, Oral 150 Number 1 1 Bowel Movements Physical Exam General Appearance: Alert, No Acute Distress Skin: No Rashes Skin Temp/Moisture Exam: Warm/Dry Sepsis Skin Exam (color): Normal for Ethnicity HEENT: Atraumatic Cardiovascular: Regular Rate, Normal S1, Normal S2 Lungs: Normal Air Movement, Upper respiratory ronchi Abdomen: Normal Bowel Sounds, Soft, No Tenderness Assessment/Plan Assessment: This is a 72 y/o female with PMH of COPD, CHF, Parkison's, who came in with CC dyspnea with hypoxia requiring and noted to have hypernatremia and a CT showing c/o RLL consolidation. She came in with acute hypoxemic respiratory failure. which responded to 2L of O2 via nasal cannula. She has a history of COPD but was not on O2 at home. Delirium: The patient was delirious on admission, she has improved, she is alert and oriented now. Plan: We will reassess her condition. Aspiration pneumonia: Based on the imaging of chest. She has failed swallow test so she is NPO and the modified swallow test was done. She had slow swallowing, she can tolerate p.o. with thick fluids and puree. Plan: Con't unasyn. Chest x-ray will be obtained tomorrow. Hypernatremia: On admission it was 155--->153 ---> 151 ---> 150 ---> 147--->144- --> 140 Plan: Check at 6 PM, and in the morning. COPD, CHF, Parkinsons: Plan: Chronic and stable, she is on 1 L O2 via nasal cannula. Hyperkalemia/Hypokalemia: Went from 2.9 to 7 as the K was drawn from same side that IV K was running. Plan: Recheck K stat, EKG She had a potassium of 3.0, 40 mEq of potassium was administered in IV with a rate of 100 mL/h after confirming pharmacy. Potassium 4.4 Anemia: Hb 9.4. Which dropped to 8.6. Hemoglobin was 8.1 ---> 7.4--->7.6 Plan: Con't monitor Severe protein-calorie malnutrition: She has a BMI of 11.1, weight 59 pounds Plan: Nutritional consult was placed, they have recommended 3 ensure puddinds per day History of gastric ulcer with bleeding: She has history of gastric ulcer with bleeding, cauterization was done for her previously. Supranuclear palsy: Reported by family Problem List: 1. Acute hypoxemic respiratory failure 2. COPD (chronic obstructive pulmonary disease) 3. Parkinson disease 4. Severe malnutrition 5. Hypernatremia 6. Pneumonia Pain Ratin Pain Location: Not applicable Pain Goal: Remain pain free Pain Plan: Not applicable Tomorrow's Labs & Rationales: CBC BEP
--- NOTE | 2018-05-29 07:31 | PN- Student ---
Subjective Subjective: Pt seen and examined this morning. No acute events overnight according to nursing. Pt is AOx2 to place and person this morning. She denies chest pain, SOB , abdominal pain but says she has some mild pain in her feet and her buttocks. Pt refuses pain medication. She says that she is hungry for breakfast and is tolerating her puree diet well so far. Objective Objective: Vital Signs Date Time Temp Pulse Resp B/P B/P Pulse O2 O2 Flow FiO2 Mean Ox Delivery Rate 05/29 0638 98.2 79 18 136/78 99 05/29 0000 99 Nasal 1.5L Cannula 05/28 2146 98.1 81 18 144/70 99 Nasal 1.5L Cannula 05/28 1600 Nasal 1.0L Cannula 05/28 1532 98.6 65 18 120/70 99 05/28 0800 Nasal 1.0L Cannula Intake & Output 05/29 0800 05/29 0000 05/28 1600 Intake Total 150 400 Output Total Balance 150 400 Intake, IV 150 Intake, Oral 400 Number 1 Bowel Movements Patient 65 lb 4 oz Weight Physical Exam Gen - NAD, cachectic, comfortable in bed Psych - appropriate affect and mood Neuro - AO to person and place, fully awake and alert HEENT - MMM CV - RRR no MRG Pulm - CTA BL with poor air entry, no increased work of breathing, 1L O2 via NC Abd - soft, nontender, nondistended, +BS Ext - warm and well perfused, feet are tender to palpation BL but no lesions or rashes are seen Results Results: Laboratory Tests 05/29/18 0624: Anion Gap 5, Estimated GFR > 60, BUN/Creatinine Ratio 10.0, CBC w Diff NO MAN DIFF REQ, RBC 2.68 L, MCV 87.6, MCH 28.4, MCHC 32.4 L, RDW 17.5 H, MPV 9.2, Gran % 76.2 H, Lymphocytes % 18.2 L, Monocytes % 4.7, Eosinophils % 0.9, Basophils % 0, Absolute Granulocytes 4.6, Absolute Lymphocytes 1.1 L, Absolute Monocytes 0.3, Absolute Eosinophils 0.1, Absolute Basophils 0 05/28/185: CBC w Diff NO MAN DIFF REQ, RBC 2.57 L, MCV 85.8, MCH 28.2, MCHC 32.9 L, RDW 17.4 H, MPV 9.1, Gran % 79.1 H, Lymphocytes % 15.1 L, Monocytes % 4.8, Eosinophils % 1.0, Basophils % 0, Absolute Granulocytes 5.3, Absolute Lymphocytes 1.0 L, Absolute Monocytes 0.3, Absolute Eosinophils 0.1, Absolute Basophils 0 Assessment/Plan Assessment: Assessment: Pt is a 72YOF with pmh of Parkinson's, CHF, COPD not on home O2 who is being cared for with home hospice. She was BIBA to the ED 7 days ago d/t SOB at home. Her daughter called for help even though the patient is on hospice care. On arrival, the pt was placed on 2L O2 NC because she was satting in the 80s and sats increased to 90s. She was found on CT to have BL lower lobe pnuemonia likely d/t aspiration. She also presented with hypernatremia, and dehydration with symptoms of delerium. PE was r/o. According to the pt's daughter, the pt had been living in [facility] for the past 1yr. She fell in May 2017 and was sent to [facility] for rehab, and then admitted group home when she failed to progress after the fall. The pt resided there until 2wk ago when her daughter took her home to her daughter's house as her mother qualified for release. Hospice care was started by [facility] at [facility] and helped the daughter get the pt set up at home. However, the daughter describes that she was not clear on the goals of hospice care and that when her mother began to have difficulty breathing at home, she called the hospice nurse but did not agree with the nurse's assessment. Then, she brought her mother in. Pt was admitted to [facility] and started on Unasyn and IV 1/2 NS. Hypernatremia resolved to 140 down from 158 at peak. Hypokelemia has resolved to 4.4. H/H stable today at 7.6/23.5. Swallow eval was performed and pt reevaluated 05/27/18. Pt did not initiate any swallowing. Barium swallow to be performed 05/28/18 showed no signs of aspiration but delayed initiation of swallows. Daughter is POA. Palliative care consult has occurred. Daughter believes that patient's wishes are to remain treating for cure. We will keep patient full code. PEG tube has been discussed. We will defer at this time in order for daughter to make a decision. Pt's medical records from [facility] have been retrieved for further information. Consent for medical records signed by daughter. Problem List 1. Pneumonia Pt had CT evidence of BL pneumonia which is likely d/t aspiration. Leukocytosis has resolved. Today pt is CTA BL. - continue unasyn IV day 04/18 today - continue D5 1/2NS with 40mEq KCl 2. Hypernatremia and Hypokalemia Pt's hypernatremia likely d/t dehydration d/t poor mental status. Mag is WNL so likely is not contributing to refractory hypokalemia. - both have resolved at this time - pt is on a puree diet but still has poor PO intake - continue IV hydration with D5 1/2NS w/ 40mEq KCl - f/u BEP tomorrow - monitor for signs of fluid overload d/t comorbid CHF 3. Anemia Pt's H/H decreasing so FOBT was done and has been + x2. CRC is a concern, but as discussion of care goals is anticipated with family we can plan for this problem after the discussion. Unlikely we will pursue endoscopy or colonoscopy as pt is quite frail and not a good candidate for anasthesia. - type and screen done in case pt needs transfusion on 05/26/18 - continue trending H/H, though at this time the pt does not seem to be in danger of a large bleed - transfuse if Hb <7 - continue pantoprazole 40mg qday IV 4. Delirium Pt's delirium was likely d/t hypernatremia though some AMS is likely baseline. Pt is AOx person and place today. - monitor pt's clinical status - f/u BEP tomorrow 5. Failure to Thrive/Cachexia Pt presented with severe protein-caloric malnutrition likely d/t AMS and her difficulty swallowing. Modified barium swallow has revealed that pt is not currently aspirating. She has been placed on a regular diet puree consistency. - continue to monitor weight - full feed assistance, slow - pt should be given any type of food requested and encouraged to eat full fat/ high calorie foods 6. Sacrococcygeal Ulcer Small Stage 2 decubital ulcer over the sacrum present on admission has been evaluated by wound care nurse. - Stable - Continue dermabond dressing as per wound care - continue turning pt q2 and avoiding direct pressure to sacrum 7. CHF/COPD Pt is not having any exascerbations at this time. Stable. - continue albuterol PRN 8. Parkinson's Pt is stable at this time. She is not on any medications. Diet: Regular DVT Prophy: ALPS Code: Full 5. Failure to Thrive/Cachexia Pt presented with severe protein-caloric malnutrition likely d/t AMS and her difficulty swallowing. Modified barium swallow has revealed that pt is not currently aspirating. She has been placed on a regular diet. - continue to monitor weight - full feed, slow - pt should be given any type of food requested and encouraged to eat full fat/ high calorie foods 6. Sacrococcygeal Ulcer Small Stage 2 decubital ulcer over the sacrum present on admission has been evaluated by wound care nurse. - Stable - Continue dermabond dressing as per wound care - continue turning pt q2 and avoiding direct pressure to sacrum 6. CHF/COPD Pt is not having any exascerbations at this time. Stable. - continue albuterol PRN 7. Parkinson's Pt is stable at this time. She is not on any medications. Diet: Regular DVT Prophy: ALPS Code: Full
[2018-05-29 07:57] LABS: ABSOLUTE BASOPHIL COUNT 0 /CUMM (0.0-0.2); ABSOLUTE EOSINOPHIL COUNT 0.1 /CUMM (0.0-0.7); ABSOLUTE GRANULOCYTE CT 4.6 /CUMM (1.4-6.5); ABSOLUTE LYMPH COUNT 1.1 /CUMM (1.2-3.4); ABSOLUTE MONOCYTE COUNT 0.3 /CUMM (0.10-0.60); BASOPHIL % 0 % (0.0-2.0); EOSINOPHIL % 0.9 % (0-5); GRANULOCYTE % 76.2 % (42.2-75.2); HEMATOCRIT 23.5 % (37-47); MEAN CORPUSCULAR HGB 28.4 PG (27.0-31.0); MEAN CORPUSCULAR HGB CONC 32.4 G/DL (33.0-37.0); MEAN CORPUSCULAR VOLUME 87.6 FL (81.0-99.0); MEAN PLATELET VOLUME 9.2 FL (7.4-10.4); PLATELET COUNT 325 /CUMM (130-400); RBC DISTRIBUTION WIDTH 17.5 % (11.5-14.5); RED BLOOD CELL CT 2.68 /CUMM (4.20-5.40)
[2018-05-29 14:31] VITALS: BP 130/80
[2018-05-29 22:21] VITALS: BP 124/70
[2018-05-30 06:06] VITALS: BP 128/68
--- NOTE | 2018-05-30 08:51 | PN- Housestaff ---
Cain Mohr 05/30/18 0851: Subjective Follow-up For: Aspiration Pneumonia Acute hypoxemic respiratory failure Hypernatremia COPD Parkinson's disease Severe protein-calorie malnutrition Subjective: I visited the patient today, she was lying back in her bed, alert and oriented, in no acute distress. No major events was reported overnight. She did not have any bowel movement from yesterday. No lightheadedness, dizziness, chest pain, shortness of breath, abdominal pain, palpitation, fever, chills, sweating. Review of Systems Constitutional: Reports: see HPI. Objective Last 24 Hrs of Vital Signs/I&O Vital Signs Date Time Temp Pulse Resp B/P B/P Pulse O2 O2 Flow FiO2 Mean Ox Delivery Rate 05/30 1400 97.5 87 20 140/82 94 Room Air 05/30 0606 98.3 72 18 128/68 96 05/30 0000 97 Room Air 05/29 2221 98.2 78 19 124/70 100 Nasal Cannula Intake & Output 05/30 1600 05/30 0800 05/30 0000 Intake Total 620 450 400 Output Total Balance 620 450 400 Intake, IV 500 450 400 Intake, Oral 120 Patient 77 lb Weight Weight Bed scale Measurement Method Physical Exam General Appearance: Alert, Oriented X3, Cooperative, No Acute Distress Skin: No Rashes Skin Temp/Moisture Exam: Warm/Dry HEENT: Atraumatic Cardiovascular: Regular Rate, Normal S1, Normal S2 Lungs: Clear to Auscultation, Normal Air Movement Abdomen: Normal Bowel Sounds, Soft, No Tenderness Assessment/Plan Assessment: This is a 72 y/o female with PMH of COPD, CHF, Parkison's, who came in with CC dyspnea with hypoxia requiring and noted to have hypernatremia and a CT showing c/o RLL consolidation. She came in with acute hypoxemic respiratory failure. which responded to 2L of O2 via nasal cannula. She has a history of COPD but was not on O2 at home. Delirium: The patient was delirious on admission, she has improved, she is alert and oriented now. Plan: We will reassess her condition. Aspiration pneumonia: Based on the imaging of chest. She has failed swallow test so she is NPO and the modified swallow test was done. She had slow swallowing, she can tolerate p.o. with thick fluids and puree. Plan: Con't unasyn. Chest x-ray will be obtained tomorrow. Hypernatremia: On admission it was 155--->153 ---> 151 ---> 150 ---> 147--->144- --> 140--->137 Plan: Check at 6 PM, and in the morning. COPD, CHF, Parkinsons: Plan: Chronic and stable, she is on 1 L O2 via nasal cannula. Hyperkalemia/Hypokalemia: Went from 2.9 to 7 as the K was drawn from same side that IV K was running. Plan: Recheck K stat, EKG She had a potassium of 3.0, 40 mEq of potassium was administered in IV with a rate of 100 mL/h after confirming pharmacy. Potassium 4.4--->4.9 Anemia: Hb 9.4. Which dropped to 8.6. Hemoglobin was 8.1 ---> 7.4--->7.6---> 7.9 Plan: Con't monitor Severe protein-calorie malnutrition: She has a BMI of 11.1, weight 59 pounds, weight has increased to 77 pounds and BMI to 14.5. Since the weight is measured by the bed scale, I am not sure about its accuracy. Plan: Nutritional consult was placed, they have recommended 3 ensure puddinds per day History of gastric ulcer with bleeding: She has history of gastric ulcer with bleeding, cauterization was done for her previously. Supranuclear palsy: Reported by family Problem List: 1. Acute hypoxemic respiratory failure 2. COPD (chronic obstructive pulmonary disease) 3. Hypernatremia 4. Pneumonia 5. Parkinson disease 6. Severe malnutrition Pain Ratin Pain Location: Not applicable Pain Goal: Remain pain free Pain Plan: Not applicable Tomorrow's Labs & Rationales: As indicated Mandi Vu 05/30/18 1457: Attending MD Review Statement Attending Statement Attending MD Statement: examined this patient, discuss w/resident/PA/HUSBANDRY PERSON, agreed w/resident/PA/HUSBANDRY PERSON, reviewed EMR data (avail) Attending Assessment/Plan: Laboratory Tests 05/30/18 0920: Anion Gap 5, Estimated GFR > 60, BUN/Creatinine Ratio 10.0, CBC w Diff NO MAN DIFF REQ, RBC 2.78 L, MCV 87.1, MCH 28.3, MCHC 32.5 L, RDW 17.6 H, MPV 8.7, Gran % 74.5, Lymphocytes % 19.7 L, Monocytes % 4.4, Eosinophils % 1.4, Basophils % 0, Absolute Granulocytes 3.1, Absolute Lymphocytes 0.8 L, Absolute Monocytes 0.2, Absolute Eosinophils 0.1, Absolute Basophils 0 Vital Signs Date Time Temp Pulse Resp B/P B/P Pulse O2 O2 Flow FiO2 Mean Ox Delivery Rate 05/30 1400 97.5 87 20 140/82 94 Room Air 05/30 0606 98.3 72 18 128/68 96 05/30 0000 97 Room Air 05/29 2221 98.2 78 19 124/70 100 Nasal Cannula Severe hypernatremia- resolved. sodium 137 Severe protein calorie malnutrition- cont on current diet with stess on calorie dense foods. encouraged pt to eat better. Anemia- hb stable. Aspiration pneumonia- on unasyn for now. staying afebrile.
--- NOTE | 2018-05-30 09:47 | PN- Palliative Care ---
Subjective Subjective: patient seen for f/u of goals of care, disposition Over the past 48h, patient is now more alert. She has improved with respect to rehydration and return of normal sodium level. She is reportedly taking in more PO - I have suggested this should be of food items which are desirable to patient and calorie dense. The patient reportedly enjoys vanilla ice cream - if she can tolerate this easily, this would achieve goals of pleasure, and calorie repletion. During my visit today, she is accompanied by several great grandchildren. Her granddaughter identifies herself as helping to take care of the patient with her aunt, Yoselin, with whom I originally spoke. We discussed the patinet's progress today, along with clarfying additional diagnoses (pt reportedly with a diagnosis of progressive supranuclear palsy as opposed to Parkinson's disease). We discussed the plans for patient's eventual return home - her grandaughter has in an unsolicited manner suggested that hospice care would resume. The patient offers no complaints today Objective Last 24 Hrs of Vital Signs/I&O Vital Signs Date Time Temp Pulse Resp B/P B/P Pulse O2 O2 Flow FiO2 Mean Ox Delivery Rate 05/30 0606 98.3 72 18 128/68 96 05/30 0000 97 Room Air 05/29 2221 98.2 78 19 124/70 100 Nasal Cannula 05/29 1431 98.3 82 18 130/80 97 Intake & Output 05/30 1600 05/30 0800 05/30 0000 Intake Total 450 400 Output Total Balance 450 400 Intake, IV 450 400 Patient 77 lb Weight Weight Bed scale Measurement Method Physical Exam: elderly female in bed, awake, alert speech fluent, responds appropriately Assessment/Plan Assessment 72F admitted with dehydration, aspiration pnuemonia in setting of advanced PSP Patient's Condition: serious, stable Prognosis: fair Is Patient Decisional? no Case Discussed With: patient, family, house staff, nurse(s) Goals of Care: life-prolonging Other Recommendations: 1. At this time, continue with medical optimzation as you are doing 2. If patient can tolerate PO intake, avoid further discussions of PEG tube as this will likely offer little to the patient. As far as nutritional intake is concerned, focus on calorie dense foods. Contunue with counseling about disadvantages of PEG which are often overlooked in these types of discussions. It is continually helpful to ask decisionmaker - what is your understanding of the benefits and risks of this intervention 3. Depending upon dispositional decisions, hospice vs. VNA services will be needed. Ongoing goals of care discussions will be helpful regarding the purpose of home hospice - for example, when further hospitalizations related to expected decline of a terminal condition or no longer desired. The success of such an intervention will be highly dependent on the degree of support provided to the patient and family. 4. Ongoing pastoral care support to reinforce the concepts of spiritual vs. physical living.
[2018-05-30 10:12] LABS: ABSOLUTE BASOPHIL COUNT 0 /CUMM (0.0-0.2); ABSOLUTE EOSINOPHIL COUNT 0.1 /CUMM (0.0-0.7); ABSOLUTE GRANULOCYTE CT 3.1 /CUMM (1.4-6.5); ABSOLUTE LYMPH COUNT 0.8 /CUMM (1.2-3.4); ABSOLUTE MONOCYTE COUNT 0.2 /CUMM (0.10-0.60); BASOPHIL % 0 % (0.0-2.0); EOSINOPHIL % 1.4 % (0-5); GRANULOCYTE % 74.5 % (42.2-75.2); HEMATOCRIT 24.2 % (37-47); MEAN CORPUSCULAR HGB 28.3 PG (27.0-31.0); MEAN CORPUSCULAR HGB CONC 32.5 G/DL (33.0-37.0); MEAN CORPUSCULAR VOLUME 87.1 FL (81.0-99.0); MEAN PLATELET VOLUME 8.7 FL (7.4-10.4); RBC DISTRIBUTION WIDTH 17.6 % (11.5-14.5); RED BLOOD CELL CT 2.78 /CUMM (4.20-5.40)
[2018-05-30 11:44] LABS: PLATELET COUNT 434 /CUMM (130-400); WHITE BLOOD CELL COUNT 4.7 /CUMM (4.8-10.8)
[2018-05-30 14:00] VITALS: BP 140/82
[2018-05-30 21:30] VITALS: BP 140/54
[2018-05-31 05:44] VITALS: BP 122/68
--- NOTE | 2018-05-31 08:40 | PN- Housestaff ---
Cain Mohr 05/31/18 0840: Subjective Follow-up For: Aspiration Pneumonia Acute hypoxemic respiratory failure Hypernatremia COPD Parkinson's disease Severe protein-calorie malnutrition Subjective: I visited the patient today, she was lying back in her bed, in no acute distress , alert, oriented to place and person. She had complains about pain in her feet. She had no complaints overnight, no chest pain, no shortness of breath, no headache, lightheadedness, dizziness, abdominal pain, fever, chills, or sweating. Review of Systems Constitutional: Reports: see HPI. Objective Last 24 Hrs of Vital Signs/I&O Vital Signs Date Time Temp Pulse Resp B/P B/P Pulse O2 O2 Flow FiO2 Mean Ox Delivery Rate 05/31 08 Room Air 05/31 0544 98.1 82 22 122/68 95 Room Air 05/30 2130 98.5 88 18 140/54 94 05/30 1400 97.5 87 20 140/82 94 Room Air Intake & Output 05/31 1600 05/31 0800 05/31 0000 Intake Total 460 320 Output Total Balance 460 320 Intake, IV 400 200 Intake, Oral 60 120 Patient 70 lb Weight Physical Exam General Appearance: Alert, No Acute Distress Skin: No Rashes Skin Temp/Moisture Exam: Warm/Dry HEENT: Atraumatic Cardiovascular: Regular Rate, Normal S1, Normal S2 Lungs: Clear to Auscultation, Normal Air Movement Abdomen: Normal Bowel Sounds, Soft, No Tenderness Extremities: No Clubbing, No Cyanosis, No Edema, Normal Pulses, Contracture Assessment/Plan Assessment: This is a 72 y/o female with PMH of COPD, CHF, Parkison's, who came in with CC dyspnea with hypoxia requiring and noted to have hypernatremia and a CT showing c/o RLL consolidation. She came in with acute hypoxemic respiratory failure. which responded to 2L of O2 via nasal cannula. She has a history of COPD but was not on O2 at home. Delirium: The patient was delirious on admission, she has improved, she is alert and oriented now. Plan: We will reassess her condition. Aspiration pneumonia: Based on the imaging of chest. She has failed swallow test so she is NPO and the modified swallow test was done. She had slow swallowing, she can tolerate p.o. with thick fluids and puree. Plan: Con't unasyn. Chest x-ray will be obtained tomorrow. Hypernatremia: On admission it was 155--->153 ---> 151 ---> 150 ---> 147--->144- --> 140--->137--->140 Plan: Check at 6 PM, and in the morning. COPD, CHF, Parkinsons: Plan: Chronic and stable, she is on 1 L O2 via nasal cannula. Hyperkalemia/Hypokalemia: Went from 2.9 to 7 as the K was drawn from same side that IV K was running. Plan: Recheck K stat, EKG She had a potassium of 3.0, 40 mEq of potassium was administered in IV with a rate of 100 mL/h after confirming pharmacy. Potassium 4.4--->4.9--->4.2 Anemia: Hb 9.4. Which dropped to 8.6. Hemoglobin was 8.1 ---> 7.4--->7.6---> 7.9--->7.2 Plan: Con't monitor Severe protein-calorie malnutrition: She has a BMI of 11.1, weight 59 pounds, weight has increased to 77 pounds and BMI to 14.5. Since the weight is measured by the bed scale, I am not sure about its accuracy. Plan: Nutritional consult was placed, they have recommended 3 ensure puddinds per day History of gastric ulcer with bleeding: She has history of gastric ulcer with bleeding, cauterization was done for her previously. Supranuclear palsy: Reported by family Problem List: 1. Acute hypoxemic respiratory failure 2. COPD (chronic obstructive pulmonary disease) 3. Hypernatremia 4. Pneumonia 5. Parkinson disease 6. Severe malnutrition Pain Ratin Pain Location: Bilateral feet Pain Goal: Pain 4 or less Pain Plan: Oxycodone Acetaminophen Tomorrow's Labs & Rationales: As indicated Mandi Vu 05/31/18 1604: Attending MD Review Statement Attending Statement Attending MD Statement: examined this patient, discuss w/resident/PA/NUTRITION SERVICES AIDE, agreed w/resident/PA/NUTRITION SERVICES AIDE, reviewed EMR data (avail), discussed with nursing Attending Assessment/Plan: Severe hypernatremia- resolved. sodium 140. Severe protein calorie malnutrition- cont on current diet with stess on calorie dense foods. encouraged pt to eat better. pt ate 1/2 of breakfast today. f/u on calorie count. Anemia- hb stable. recheck in am . Aspiration pneumonia- finished unasyn on 05/30. afebrile .
[2018-05-31 09:27] LABS: ABSOLUTE BASOPHIL COUNT 0 /CUMM (0.0-0.2); ABSOLUTE EOSINOPHIL COUNT 0 /CUMM (0.0-0.7); ABSOLUTE MONOCYTE COUNT 0.4 /CUMM (0.10-0.60); BASOPHIL % 0 % (0.0-2.0); WHITE BLOOD CELL COUNT 6.4 /CUMM (4.8-10.8)
[2018-05-31 09:34] LABS: ABSOLUTE GRANULOCYTE CT 5.1 /CUMM (1.4-6.5); ABSOLUTE LYMPH COUNT 0.9 /CUMM (1.2-3.4); EOSINOPHIL % 0.1 % (0-5); GRANULOCYTE % 80.3 % (42.2-75.2); HEMATOCRIT 21.9 % (37-47); MEAN CORPUSCULAR HGB 28.4 PG (27.0-31.0); MEAN CORPUSCULAR HGB CONC 32.8 G/DL (33.0-37.0); MEAN CORPUSCULAR VOLUME 86.6 FL (81.0-99.0); MEAN PLATELET VOLUME 8.4 FL (7.4-10.4); PLATELET COUNT 467 /CUMM (130-400); RBC DISTRIBUTION WIDTH 17.8 % (11.5-14.5); RED BLOOD CELL CT 2.53 /CUMM (4.20-5.40)
[2018-05-31 14:32] VITALS: BP 130/70
[2018-05-31 21:45] VITALS: BP 146/80
[2018-06-01 06:32] VITALS: BP 164/90
--- NOTE | 2018-06-01 06:49 | PN- Housestaff ---
Cain Mohr 06/01/18 0649: Subjective Follow-up For: Aspiration Pneumonia Acute hypoxemic respiratory failure Hypernatremia COPD Parkinson's disease Severe protein-calorie malnutrition Subjective: I visited and examined with the patient's morning. She was lying in her bed alert and oriented to person and place. She is still slow in communicating verbally. She complains of pain in her feet. I checked them, there is no sign of bedsore. No bowel movement since May 29, last bowel movement was guaiac positive, no oxygen desaturation reported, no other complaints reported overnight by nurse. Review of Systems Constitutional: Reports: see HPI. Objective Last 24 Hrs of Vital Signs/I&O Vital Signs Date Time Temp Pulse Resp B/P B/P Pulse O2 O2 Flow FiO2 Mean Ox Delivery Rate 06/01 0800 Room Air 06/01 0632 97.3 64 20 164/90 96 Room Air 05/31 2145 97.0 83 18 146/80 95 Intake & Output 06/01 1600 06/01 0800 06/01 0000 Intake Total 340 120 500 Output Total Balance 340 120 500 Intake, IV 0 Intake, Oral 340 120 500 Number 0 Bowel Movements Patient 67 lb 5 oz Weight Weight Bed scale Measurement Method Physical Exam General Appearance: Alert, Cooperative, No Acute Distress Skin: No Rashes Skin Temp/Moisture Exam: Warm/Dry HEENT: Atraumatic Cardiovascular: Regular Rate, Normal S1, Normal S2 Lungs: Clear to Auscultation, Normal Air Movement Abdomen: Normal Bowel Sounds, Soft, No Tenderness Extremities: No Clubbing, No Cyanosis, No Edema, Contracture Vascular: Normal Pulses, Pulses Symmetrical Assessment/Plan Assessment: This is a 72 y/o female with PMH of COPD, CHF, Parkison's, who came in with CC dyspnea with hypoxia requiring and noted to have hypernatremia and a CT showing c/o RLL consolidation. She came in with acute hypoxemic respiratory failure. which responded to 2L of O2 via nasal cannula. She has a history of COPD but was not on O2 at home. She is now off oxygen, with normal O2 saturations. Delirium: The patient was delirious on admission, she has improved, she is alert and oriented now. Plan: We will reassess her condition. Aspiration pneumonia: Based on the imaging of chest. She has failed swallow test so she is NPO and the modified swallow test was done. She had slow swallowing, she can tolerate p.o. with thick fluids and puree. Talked to speech therapist on June 01, they changed diet to honey thick fluids plus puree. Plan: She received 7 days of IV Unasyn, physical exam shows clear lungs now with normal breathing sounds. And she is afebrile. Hypernatremia: On admission it was 155--->153 ---> 151 ---> 150 ---> 147--->144- --> 140--->137--->140 Plan: Check at 6 AM. COPD, CHF, Parkinsons: Plan: Chronic and stable, she was on 1 L O2 via nasal cannula. Not on oxygen anymore. Hyperkalemia/Hypokalemia: Went from 2.9 to 7 as the K was drawn from same side that IV K was running. Plan: Recheck K stat, EKG She had a potassium of 3.0, 40 mEq of potassium was administered in IV with a rate of 100 mL/h after confirming pharmacy. Potassium 4.4--->4.9--->4.2--->4.0 Anemia: Hb 9.4. Which dropped to 8.6. Hemoglobin was 8.1 ---> 7.4--->7.6---> 7.9--->7.2--->7.7 Plan: Con't monitor Severe protein-calorie malnutrition: She has a BMI of 11.1, weight 59 pounds, weight has increased to 77 pounds and BMI to 14.5. Since the weight is measured by the bed scale, I am not sure about its accuracy. Plan: Nutritional consult was placed, they have recommended 3 ensure puddinds per day History of gastric ulcer with bleeding: She has history of gastric ulcer with bleeding, cauterization was done for her previously. Supranuclear palsy: Reported by family, which can contribute to the swallowing delay and difficulty that she has. Problem List: 1. Aspiration pneumonia 2. COPD (chronic obstructive pulmonary disease) 3. Hypernatremia 4. Acute hypoxemic respiratory failure 5. Parkinson disease 6. Severe malnutrition 7. Anemia 8. Supranuclear palsy Pain Ratin Pain Location: NA Pain Goal: Remain pain free Pain Plan: NA Tomorrow's Labs & Rationales: CBC BEP Galen Deras MD 06/01/18 2233: Attending MD Review Statement Attending Statement Attending MD Statement: examined this patient, discuss w/resident/PA/QUICK PRINT OPERATOR, agreed w/resident/PA/QUICK PRINT OPERATOR, reviewed EMR data (avail), discussed with nursing, discussed with case mgmt Attending Assessment/Plan: The patient continues to improve. Eating about 50% of diet. Will need palliative care to address with her daughter, however based on prior conversation she would like discharge to home and not on hospice care. Monitoring H/H for further bleeding.
[2018-06-01 10:10] LABS: ABSOLUTE BASOPHIL COUNT 0 /CUMM (0.0-0.2); ABSOLUTE EOSINOPHIL COUNT 0.1 /CUMM (0.0-0.7); ABSOLUTE GRANULOCYTE CT 7.1 /CUMM (1.4-6.5); ABSOLUTE LYMPH COUNT 1.1 /CUMM (1.2-3.4); ABSOLUTE MONOCYTE COUNT 0.2 /CUMM (0.10-0.60); BASOPHIL % 0 % (0.0-2.0); EOSINOPHIL % 1.1 % (0-5); GRANULOCYTE % 83.3 % (42.2-75.2); HEMATOCRIT 23.4 % (37-47); MEAN CORPUSCULAR HGB 28.7 PG (27.0-31.0); MEAN CORPUSCULAR HGB CONC 32.9 G/DL (33.0-37.0); MEAN CORPUSCULAR VOLUME 87.2 FL (81.0-99.0); MEAN PLATELET VOLUME 8.1 FL (7.4-10.4); PLATELET COUNT 561 /CUMM (130-400); RED BLOOD CELL CT 2.69 /CUMM (4.20-5.40)
[2018-06-01 11:25] LABS: WHITE BLOOD CELL COUNT 8.6 /CUMM (4.8-10.8)
--- NOTE | 2018-06-01 11:44 | PN- Student ---
Subjective Subjective: Pt seen and examined this morning. She was alert and oriented with no complaints. She denied chest pain, SOB, abdominal pain, and only reported slight pain in her feet. Her nurse indicated that she had no acute events overnight or over the weekend. Last BM on 05/29/18. Objective Objective: Vital Signs Date Time Temp Pulse Resp B/P B/P Pulse O2 O2 Flow FiO2 Mean Ox Delivery Rate 06/01 0800 Room Air 06/01 0632 97.3 64 20 164/90 96 Room Air 05/31 2145 97.0 83 18 146/80 95 05/31 1432 98.2 86 18 130/70 98 Room Air Intake & Output 06/01 1600 06/01 0800 06/01 0000 Intake Total 120 500 Output Total Balance 120 500 Intake, Oral 120 500 Patient 67 lb 5 oz Weight Weight Bed scale Measurement Method Physical Exam Gen - NAD, resting, cachectic Psych - appropriate affect Neuro - AOx person and place, but generally confused about why she is in the hospital, calls for help frequently HEENT - MMM, glassy eyes CV - RRR no MRG Pulm - CTA BL but very diminished air entry BL, no O2 required, no increased work of breathing Abd - soft, nontender, nondistended Ext - warm and well perfused in baseline contracted position Sacrum - sacrococcygeal ulcer present and stable as per nurse Results Results: Laboratory Tests 06/01/18 0900: Anion Gap 6, Estimated GFR > 60, BUN/Creatinine Ratio 15.7, CBC w Diff NO MAN DIFF REQ, RBC 2.69 L, MCV 87.2, MCH 28.7, MCHC 32.9 L, RDW 18.0 H, MPV 8.1, Gran % 83.3 H, Lymphocytes % 12.7 L, Monocytes % 2.9, Eosinophils % 1.1, Basophils % 0, Absolute Granulocytes 7.1 H, Absolute Lymphocytes 1.1 L, Absolute Monocytes 0.2, Absolute Eosinophils 0.1, Absolute Basophils 0 05/31/18 0755: Anion Gap 5, Estimated GFR > 60, BUN/Creatinine Ratio 12.9, CBC w Diff NO MAN DIFF REQ, RBC 2.53 L, MCV 86.6, MCH 28.4, MCHC 32.8 L, RDW 17.8 H, MPV 8.4, Gran % 80.3 H, Lymphocytes % 13.5 L, Monocytes % 6.1, Eosinophils % 0.1, Basophils % 0, Absolute Granulocytes 5.1, Absolute Lymphocytes 0.9 L, Absolute Monocytes 0.4, Absolute Eosinophils 0, Absolute Basophils 0 05/30/18 0920: Anion Gap 5, Estimated GFR > 60, BUN/Creatinine Ratio 10.0, CBC w Diff NO MAN DIFF REQ, RBC 2.78 L, MCV 87.1, MCH 28.3, MCHC 32.5 L, RDW 17.6 H, MPV 8.7, Gran % 74.5, Lymphocytes % 19.7 L, Monocytes % 4.4, Eosinophils % 1.4, Basophils % 0, Absolute Granulocytes 3.1, Absolute Lymphocytes 0.8 L, Absolute Monocytes 0.2, Absolute Eosinophils 0.1, Absolute Basophils 0 Assessment/Plan Assessment: Assessment: Pt is a 72YOF with pmh of Parkinson's, CHF, COPD not on home O2 who is being cared for with home hospice. She was BIBA to the ED 10 days ago d/t SOB at home. Her daughter called for help even though the patient is on hospice care. On arrival, the pt was placed on 2L O2 NC because she was satting in the 80s and sats increased to 90s. She was found on CT to have BL lower lobe pnuemonia likely d/t aspiration. She also presented with hypernatremia, and dehydration with symptoms of delerium. PE was r/o. According to the pt's daughter, the pt had been living in [facility] for the past 1yr. She fell in May 2017 and was sent to [facility] for rehab, and then admitted longterm when she failed to progress after the fall. The pt resided there until 2wk ago when her daughter took her home to her daughter's house as her mother qualified for release. Hospice care was started by [facility] at [facility] and helped the daughter get the pt set up at home. However, the daughter describes that she was not clear on the goals of hospice care and that when her mother began to have difficulty breathing at home, she called the hospice nurse but did not agree with the nurse's assessment. Then, she brought her mother in. Pt was admitted to [facility] and started on Unasyn and IV 1/2 NS. Hypernatremia resolved, hypokalemia resolved, H/H stable. Swallow eval was performed and pt reevaluated 05/27/18. Pt did not initiate any swallowing. Barium swallow to be performed 05/28/18 showed no signs of aspiration but delayed initiation of swallows. Swallow reevaluated today and advanced diet to honey thick liquids. Daughter is POA. Palliative care consult has occurred. Daughter believes that patient's wishes are to remain treating for cure. We will keep patient full code. PEG tube has been discussed. We will defer at this time and continue to educate on risks/benefits. Pt's medical records from [facility] have been retrieved for further information. Consent for medical records signed by daughter. Problem List 1. Pneumonia Pt had CT evidence of BL pneumonia which is likely d/t aspiration. Leukocytosis has resolved. Today pt is CTA BL. - unasyn IV completed 7 days. - monitor for signs of infection as pt is high risk for aspiration d/t baseline status 2. Hypernatremia and Hypokalemia Pt's hypernatremia likely d/t dehydration d/t poor mental status. Mag is WNL so likely is not contributing to refractory hypokalemia. - both have resolved at this time - f/u BEP 3. Anemia Pt's H/H decreasing so FOBT was done and has been + x2. CRC is a concern. Unlikely we will pursue endoscopy or colonoscopy as pt is quite frail and not a good candidate for anasthesia. However, more likely concern is gastric ulcer as pt has a hx of an upper GI bleed which has been cauterized in the past. - type and screen is but pt is stable at this time - continue trending H/H, though at this time the pt does not seem to be in danger of a large bleed - transfuse if Hb <7 - continue pantoprazole 40mg qday IV 4. Delirium Pt's delirium was likely d/t hypernatremia though some AMS is likely baseline. Pt is AOx person and place today. - monitor pt's clinical status - f/u BEP tomorrow 5. Failure to Thrive/Cachexia Pt presented with severe protein-caloric malnutrition likely d/t AMS and her difficulty swallowing. Modified barium swallow has revealed that pt is not currently aspirating. She has been placed on a regular diet honey thick consistency. - continue to monitor weight - full feed assistance, slow - pt should be given any type of food requested within her diet and encouraged to eat full fat/high calorie foods - continue to monitor caloric count 6. Sacrococcygeal Ulcer Small Stage 2 decubital ulcer over the sacrum present on admission has been evaluated by wound care nurse. - Stable - Continue dermabond dressing as per wound care - continue turning pt q2 and avoiding direct pressure to sacrum 7. CHF/COPD Pt is not having any exascerbations at this time. Stable. - continue albuterol PRN 8. Parkinson's/Supranuclear Palsy Pt is stable at this time. She is not on any medications. This is a likely etiology of pt's progressive dysphagia over the last year and for her delayed swallow. - continue feeding as per above d/t high risk of aspiration Diet: Regular w/ honey thick consistency DVT Prophy: ALPS Code: Full
[2018-06-01 15:53] VITALS: BP 120/80
[2018-06-01 22:02] VITALS: BP 126/66
[2018-06-02 05:54] VITALS: BP 128/60
--- NOTE | 2018-06-02 06:39 | PN- Housestaff ---
Cain Mohr 06/02/18 0637: Subjective Follow-up For: Aspiration Pneumonia Acute hypoxemic respiratory failure Hypernatremia COPD Parkinson's disease Severe protein-calorie malnutrition Subjective: I visited the patient is morning, she was lying back in her bed, alert, in no acute distress. She reports no pain, no headache, no lightheadedness, dizziness , or chest pain, or abdominal pain, or pain in extremities. No bowel movement reported from the nurse, no fever, or no other major complaints. Review of Systems Constitutional: Reports: see HPI. Objective Last 24 Hrs of Vital Signs/I&O Vital Signs Date Time Temp Pulse Resp B/P B/P Pulse O2 O2 Flow FiO2 Mean Ox Delivery Rate 06/02 0800 Room Air 06/02 0554 99.4 76 20 128/60 96 Room Air 06/01 2202 98.4 96 18 126/66 95 06/01 1553 98.0 87 20 120/80 93 Intake & Output 06/02 1600 06/02 0800 06/02 0000 Intake Total Output Total Balance Patient 72 lb Weight Physical Exam General Appearance: Alert, Cooperative, No Acute Distress Skin: No Rashes Skin Temp/Moisture Exam: Warm/Dry Sepsis Skin Exam (color): Normal for Ethnicity HEENT: Atraumatic Cardiovascular: Regular Rate, Normal S1, Normal S2 Lungs: Clear to Auscultation, Normal Air Movement Abdomen: Normal Bowel Sounds, Soft, No Tenderness Extremities: No Edema, Normal Pulses Assessment/Plan Assessment: This is a 72 y/o female with PMH of COPD, CHF, Parkison's, who came in with CC dyspnea with hypoxia requiring and noted to have hypernatremia and a CT showing c/o RLL consolidation. She came in with acute hypoxemic respiratory failure. which responded to 2L of O2 via nasal cannula. She has a history of COPD but was not on O2 at home. She is now off oxygen, with normal O2 saturations. Delirium: The patient was delirious on admission, she has improved, she is alert and oriented now. Condition resolved Plan: We will reassess her condition. Aspiration pneumonia: Based on the imaging of chest. She has failed swallow test so she is NPO and the modified swallow test was done. She had slow swallowing, she can tolerate p.o. with thick fluids and puree. Talked to speech therapist on June 01, they changed diet to honey thick fluids plus puree. Plan: She received 7 days of IV Unasyn, physical exam shows clear lungs now with normal breathing sounds. And she is afebrile. Hypernatremia: On admission it was 155--->153 ---> 151 ---> 150 ---> 147--->144- --> 140--->137--->140 condition resolved Plan: Check at 6 AM. COPD, CHF, Parkinsons: Plan: Chronic and stable, she was on 1 L O2 via nasal cannula. Not on oxygen anymore. Hyperkalemia/Hypokalemia: Went from 2.9 to 7 as the K was drawn from same side that IV K was running. Condition resolved Plan: Recheck K stat, EKG She had a potassium of 3.0, 40 mEq of potassium was administered in IV with a rate of 100 mL/h after confirming pharmacy. Potassium 4.4--->4.9--->4.2--->4.0 Anemia: Hb 9.4. Which dropped to 8.6. Hemoglobin was 8.1 ---> 7.4--->7.6---> 7.9--->7.2--->7.7--->7.2 Plan: Con't monitor Severe protein-calorie malnutrition: She has a BMI of 11.1, weight 59 pounds, weight has increased to 77 pounds and BMI to 14.5. Since the weight is measured by the bed scale, I am not sure about its accuracy. Plan: Nutritional consult was placed, they have recommended 3 ensure puddinds per day History of gastric ulcer with bleeding: She has history of gastric ulcer with bleeding, cauterization was done for her previously. Supranuclear palsy: Reported by family, which can contribute to the swallowing delay and difficulty that she has. Problem List: 1. COPD (chronic obstructive pulmonary disease) 2. Acute hypoxemic respiratory failure 3. Hypernatremia 4. Pneumonia 5. Parkinson disease 6. Severe malnutrition 7. Aspiration pneumonia 8. Anemia 9. Supranuclear palsy Pain Ratin Pain Location: na Pain Goal: Remain pain free Pain Plan: na Tomorrow's Labs & Rationales: CBC BEGalen Zuleta MD 06/02/18 1625: Attending MD Review Statement Attending Statement Attending MD Statement: examined this patient, discuss w/resident/PA/POKER DEALER, agreed w/resident/PA/POKER DEALER, reviewed EMR data (avail), discussed with nursing, discussed with case mgmt, amended to note Attending Assessment/Plan: The patient was seen and discussed with house staff, nursing, and case management. H/H has been stable and patient is taking 50% of meals. Diet increased to include nectar thick liquids. No evidence of aspiration. Will have Dr. Petty discuss palliative status with daughter again tomorrow, however she is favoring home care (not Hospice).
--- NOTE | 2018-06-02 07:12 | PN- Student ---
Rad Barnes 06/02/18 0710: Subjective Subjective: Pt seen and examined this morning. She had difficulty remaining awake, but spoke to me at length. She is alert and oriented to person. She denied chest pain, SOB , abdominal pain, leg pain, but endorses continued pain in her feet. She has asked for some pain medication. Nurse has been notified. The pt also expressed sadness today at being in the hospital and not being able to do things. She does not understand why she has to be like this. She has been counseled but does not fully understand her condition. Objective Objective: Vital Signs Date Time Temp Pulse Resp B/P B/P Pulse O2 O2 Flow FiO2 Mean Ox Delivery Rate 06/02 0554 99.4 76 20 128/60 96 Room Air 06/01 2202 98.4 96 18 126/66 95 06/01 1553 98.0 87 20 120/80 93 Intake & Output 06/02 1600 06/02 0800 06/02 0000 Intake Total Output Total Balance Patient 72 lb Weight Physical Exam Gen - NAD, resting, cachectic Psych - appropriate affect Neuro - AOx person, but generally confused about why she is in the hospital, calls for help frequently HEENT - MMM, glassy eyes CV - RRR no MRG Pulm - CTA BL but very diminished air entry BL, no O2 required, no increased work of breathing Abd - soft, nontender, nondistended Ext - warm and well perfused in baseline contracted position, palpable UE and LE pulses BL Results Results: Laboratory Tests 06/01/18 0900: Anion Gap 6, Estimated GFR > 60, BUN/Creatinine Ratio 15.7, CBC w Diff NO MAN DIFF REQ, RBC 2.69 L, MCV 87.2, MCH 28.7, MCHC 32.9 L, RDW 18.0 H, MPV 8.1, Gran % 83.3 H, Lymphocytes % 12.7 L, Monocytes % 2.9, Eosinophils % 1.1, Basophils % 0, Absolute Granulocytes 7.1 H, Absolute Lymphocytes 1.1 L, Absolute Monocytes 0.2, Absolute Eosinophils 0.1, Absolute Basophils 0 05/31/18 0755: Anion Gap 5, Estimated GFR > 60, BUN/Creatinine Ratio 12.9, CBC w Diff NO MAN DIFF REQ, RBC 2.53 L, MCV 86.6, MCH 28.4, MCHC 32.8 L, RDW 17.8 H, MPV 8.4, Gran % 80.3 H, Lymphocytes % 13.5 L, Monocytes % 6.1, Eosinophils % 0.1, Basophils % 0, Absolute Granulocytes 5.1, Absolute Lymphocytes 0.9 L, Absolute Monocytes 0.4, Absolute Eosinophils 0, Absolute Basophils 0 05/30/18 0920: Anion Gap 5, Estimated GFR > 60, BUN/Creatinine Ratio 10.0, CBC w Diff NO MAN DIFF REQ, RBC 2.78 L, MCV 87.1, MCH 28.3, MCHC 32.5 L, RDW 17.6 H, MPV 8.7, Gran % 74.5, Lymphocytes % 19.7 L, Monocytes % 4.4, Eosinophils % 1.4, Basophils % 0, Absolute Granulocytes 3.1, Absolute Lymphocytes 0.8 L, Absolute Monocytes 0.2, Absolute Eosinophils 0.1, Absolute Basophils 0 Assessment/Plan Assessment: Assessment: Pt is a 72YOF with pmh of Parkinson's, CHF, COPD not on home O2 who is being cared for with home hospice. She was BIBA to the ED 11 days ago d/t SOB at home. Her daughter called for help even though the patient was on hospice care. On arrival, the pt was placed on 2L O2 NC because she was satting in the 80s and sats increased to 90s. She was found on CT to have BL lower lobe pnuemonia likely d/t aspiration. She also presented with hypernatremia, and dehydration with symptoms of delerium. PE was r/o. According to the pt's daughter, the pt had been living in [facility] for the past 1yr. She fell in May 2017 and was sent to [facility] for rehab, and then admitted intermediate when she failed to progress after the fall. The pt resided there until 3wk ago when her daughter took her home to her daughter's house as her mother qualified for release. Hospice care was started by [facility] at [facility] and helped the daughter get the pt set up at home. However, the daughter describes that she was not clear on the goals of hospice care and that when her mother began to have difficulty breathing at home, she called the hospice nurse but did not agree with the nurse's assessment. Then, she brought her mother in. Pt was admitted to [facility] and started on Unasyn and IV 1/2 NS. Hypernatremia resolved, hypokalemia resolved, H/H stable. Swallow eval was performed and pt reevaluated 05/27/18. Pt did not initiate any swallowing. Barium swallow to be performed 05/28/18 showed no signs of aspiration but delayed initiation of swallows. Swallow reevaluated today by speech pathology and advanced diet to honey thick liquids. Daughter is POA. Palliative care consult has occurred. Daughter believes that patient's wishes are to remain treating for cure. We will keep patient full code. PEG tube has been discussed. We will defer at this time and continue to educate on risks/benefits. Pt's medical records from [facility] have been retrieved for further information. Consent for medical records signed by daughter. Problem List 1. Pneumonia Pt had CT evidence of BL pneumonia which is likely d/t aspiration. Leukocytosis has resolved. Today pt is CTA BL but with poor air entry. - unasyn IV completed 7 days. - monitor for signs of infection as pt is high risk for aspiration d/t baseline status 2. Hypernatremia and Hypokalemia Pt's hypernatremia likely d/t dehydration d/t poor mental status. Mag is WNL so likely is not contributing to refractory hypokalemia. - both have resolved at this time - f/u BEP 3. Anemia Pt's H/H decreasing so FOBT was done and has been + x2. CRC is a concern. Unlikely we will pursue endoscopy or colonoscopy as pt is quite frail and not a good candidate for anasthesia. However, more likely concern is gastric ulcer as pt has a hx of an upper GI bleed which has been cauterized in the past. - type and screen is but pt is stable at this time - continue trending H/H, though at this time the pt does not seem to be in danger of a large bleed - transfuse if Hb <7 - continue pantoprazole 40mg qday IV 4. Delirium Pt's delirium was likely d/t hypernatremia though some AMS is likely baseline. Pt is AOx person today. - monitor pt's clinical status - f/u BEP tomorrow 5. Failure to Thrive/Cachexia Pt presented with severe protein-caloric malnutrition likely d/t AMS and her difficulty swallowing. Modified barium swallow has revealed that pt is not currently aspirating. She has been placed on a regular diet honey thick consistency. - continue to monitor weight - full feed assistance, slow - pt should be given any type of food requested within her diet and encouraged to eat full fat/high calorie foods - continue to monitor caloric count 6. Sacrococcygeal Ulcer Small Stage 2 decubital ulcer over the sacrum present on admission has been evaluated by wound care nurse. - Stable - Continue dermabond dressing as per wound care - continue turning pt q2 and avoiding direct pressure to sacrum 7. CHF/COPD Pt is not having any exascerbations at this time. Stable. - continue albuterol PRN 8. Parkinson's/Supranuclear Palsy Pt is stable at this time. She is not on any medications. This is a likely etiology of pt's progressive dysphagia over the last year and for her delayed swallow. - continue feeding as per above d/t high risk of aspiration - continue protecting patient's extremities with frequent repositioning in hospital bed and chair Diet: Regular w/ honey thick consistency DVT Prophy: ALPS Code: Full
[2018-06-02 10:37] LABS: ABSOLUTE BASOPHIL COUNT 0 /CUMM (0.0-0.2); ABSOLUTE EOSINOPHIL COUNT 0.1 /CUMM (0.0-0.7); BASOPHIL % 0 % (0.0-2.0); RED BLOOD CELL CT 2.51 /CUMM (4.20-5.40); WHITE BLOOD CELL COUNT 7.5 /CUMM (4.8-10.8)
[2018-06-02 10:54] LABS: ABSOLUTE GRANULOCYTE CT 6.2 /CUMM (1.4-6.5); ABSOLUTE LYMPH COUNT 0.7 /CUMM (1.2-3.4); ABSOLUTE MONOCYTE COUNT 0.5 /CUMM (0.10-0.60); EOSINOPHIL % 1.6 % (0-5); GRANULOCYTE % 82.8 % (42.2-75.2); HEMATOCRIT 21.8 % (37-47); MEAN CORPUSCULAR HGB 28.6 PG (27.0-31.0); MEAN CORPUSCULAR HGB CONC 32.8 G/DL (33.0-37.0); MEAN CORPUSCULAR VOLUME 87.1 FL (81.0-99.0); MEAN PLATELET VOLUME 7.8 FL (7.4-10.4); PLATELET COUNT 584 /CUMM (130-400); RBC DISTRIBUTION WIDTH 18.8 % (11.5-14.5)
[2018-06-02 14:20] VITALS: BP 124/62
[2018-06-02 18:47] LABS: ABSOLUTE BASOPHIL COUNT 0 /CUMM (0.0-0.2); ABSOLUTE EOSINOPHIL COUNT 0.1 /CUMM (0.0-0.7); ABSOLUTE GRANULOCYTE CT 5.2 /CUMM (1.4-6.5); ABSOLUTE LYMPH COUNT 1.2 /CUMM (1.2-3.4); ABSOLUTE MONOCYTE COUNT 0.5 /CUMM (0.10-0.60); BASOPHIL % 0.2 % (0.0-2.0); EOSINOPHIL % 1.7 % (0-5); GRANULOCYTE % 73.8 % (42.2-75.2); HEMATOCRIT 21.7 % (37-47); MEAN CORPUSCULAR HGB 28.5 PG (27.0-31.0); MEAN CORPUSCULAR HGB CONC 33.2 G/DL (33.0-37.0); MEAN CORPUSCULAR VOLUME 85.9 FL (81.0-99.0); MEAN PLATELET VOLUME 7.8 FL (7.4-10.4); PLATELET COUNT 576 /CUMM (130-400); RBC DISTRIBUTION WIDTH 18.4 % (11.5-14.5); RED BLOOD CELL CT 2.53 /CUMM (4.20-5.40)
[2018-06-02 20:11] LABS: WHITE BLOOD CELL COUNT 7.1 /CUMM (4.8-10.8)
[2018-06-02 21:31] VITALS: BP 130/80
[2018-06-03 06:38] VITALS: BP 134/76
--- NOTE | 2018-06-03 07:08 | PN- Housestaff ---
Cain Mohr 06/03/18 0707: Subjective Follow-up For: Aspiration Pneumonia Acute hypoxemic respiratory failure Hypernatremia COPD Parkinson's disease Severe protein-calorie malnutrition Subjective: I visited the patient this morning, she was lying back in her bed, alert and oriented 2, in no acute distress. She had complaints of pain in her feet. She has not had a bowel movement since May 29. Dr. Sam will be here at 11 AM to talk to her daughter. We will arrange to get a hospital bed in a wheelchair for her once she is ready to go home. We will also arrange to find her PCP when she is ready to go back home. Based on the reports from the nurse she is taking 50-100% of her food. No major complaints overnight. Review of Systems Constitutional: Reports: see HPI. Objective Last 24 Hrs of Vital Signs/I&O Vital Signs Date Time Temp Pulse Resp B/P B/P Pulse O2 O2 Flow FiO2 Mean Ox Delivery Rate 06/03 0638 98.3 74 20 134/76 92 06/02 2131 98.3 73 20 130/80 96 06/02 1420 98.9 78 20 124/62 94 Room Air Intake & Output 06/03 1600 06/03 0800 06/03 0000 Intake Total 250 250 Output Total Balance 250 250 Intake, IV 10 10 Intake, Oral 240 240 Physical Exam General Appearance: Alert, Oriented X3, Cooperative, No Acute Distress HEENT: Atraumatic Cardiovascular: Regular Rate, Normal S1, Normal S2 Lungs: Clear to Auscultation, Normal Air Movement Abdomen: Normal Bowel Sounds, Soft, No Tenderness Vascular: Normal Pulses, Pulses Symmetrical Assessment/Plan Assessment: This is a 72 y/o female with PMH of COPD, CHF, Parkison's, who came in with CC dyspnea with hypoxia requiring and noted to have hypernatremia and a CT showing c/o RLL consolidation. She came in with acute hypoxemic respiratory failure. which responded to 2L of O2 via nasal cannula. She has a history of COPD but was not on O2 at home. She is now off oxygen, with normal O2 saturations. We had the meeting with Dr. Sam, continuous pillowcase cutter, my senior resident, and the medical student regarding the plan of care. Delirium: The patient was delirious on admission, she has improved, she is alert and oriented now. Condition resolved Plan: We will reassess her condition. Aspiration pneumonia: Based on the imaging of chest. She has failed swallow test so she is NPO and the modified swallow test was done. She had slow swallowing, she can tolerate p.o. with thick fluids and puree. Talked to speech therapist on June 01, they changed diet to honey thick fluids plus puree. Plan: She received 7 days of IV Unasyn, physical exam shows clear lungs now with normal breathing sounds. And she is afebrile. Hypernatremia: On admission it was 155--->153 ---> 151 ---> 150 ---> 147--->144- --> 140--->137--->140 condition resolved Plan: Check at 6 AM. COPD, CHF, Parkinsons: Plan: Chronic and stable, she was on 1 L O2 via nasal cannula. Not on oxygen anymore. The patient will need nebulizer for comfort of respiration due to COPD , once she is discharged from the hospital. Hyperkalemia/Hypokalemia: Went from 2.9 to 7 as the K was drawn from same side that IV K was running. Condition resolved Plan: Recheck K stat, EKG She had a potassium of 3.0, 40 mEq of potassium was administered in IV with a rate of 100 mL/h after confirming pharmacy. Potassium 4.4--->4.9--->4.2--->4.0, stable Anemia: Hb 9.4. Which dropped to 8.6. Hemoglobin was 8.1 ---> 7.4--->7.6---> 7.9--->7.2--->7.7--->7.2--->7.9 Plan: Con't monitor, she had a bowel movement at May 29 positive. Severe protein-calorie malnutrition: She has a BMI of 11.1, weight 59 pounds, weight has increased to 77 pounds and BMI to 14.5. Since the weight is measured by the bed scale, I am not sure about its accuracy. Plan: Nutritional consult was placed, they have recommended 3 ensure puddinds per day History of gastric ulcer with bleeding: She has history of gastric ulcer with bleeding, cauterization was done for her previously. Supranuclear palsy: Reported by family, which can contribute to the swallowing delay and difficulty that she has. Due to her chronic problems, being bedbound due to parkinsonism, and multiple medical problems, she will need a hospital bed with a gel mattress (to prevent bedsores), which should be semi-electric. Which is necessary for her her condition regarding getting to and out of bed. and also a wheelchair that is not self-propelled once she is discharged from the hospital, to ease her transfer. The patient needs this equipment in order to be able to leave at her home. Problem List: 1. COPD (chronic obstructive pulmonary disease) 2. Acute hypoxemic respiratory failure 3. Hypernatremia 4. Pneumonia 5. Parkinson disease 6. Severe malnutrition 7. Aspiration pneumonia 8. Anemia 9. Supranuclear palsy Pain Ratin Pain Location: NA Pain Goal: Remain pain free Pain Plan: NA Tomorrow's Labs & Rationales: CBC Galen Aguirre MD 06/03/18 2154: Attending MD Review Statement Attending Statement Attending MD Statement: examined this patient, discuss w/resident/PA/RAILWAY SWITCH OPERATOR, agreed w/resident/PA/RAILWAY SWITCH OPERATOR, reviewed EMR data (avail), discussed with nursing, discussed with case mgmt, amended to note Attending Assessment/Plan: The patient was seen and discussed with house staff, nursing, and case management. Appreciate Palliative Care follow-up. The patient's po intake has improved as has her weight. Plan is to arrange home care and obtain home equipment (bed, wheelchair, etc.).
--- NOTE | 2018-06-03 07:13 | PN- Student ---
Rad Barnes 06/03/18 0711: Subjective Subjective: Pt seen and examined at bedside this morning. She is alert and oriented to person and place. Overnight, the pt had no acute events. She reports no headache , chest pain, dyspnea, abdominal pain. She reports foot pain which is the same as yesterday and some increased sacral pain. She is asking to be taken off the puree and honey thick liquid diet as she wants regular foods. Last BM was . Objective Objective: Vital Signs Date Time Temp Pulse Resp B/P B/P Pulse O2 O2 Flow FiO2 Mean Ox Delivery Rate 06/03 0638 98.3 74 20 134/76 92 06/02 2131 98.3 73 20 130/80 96 06/02 1420 98.9 78 20 124/62 94 Room Air Intake & Output 06/03 1600 06/03 0800 06/03 0000 Intake Total 250 250 Output Total Balance 250 250 Intake, IV 10 10 Intake, Oral 240 240 Physical Exam Gen - NAD, resting, cachectic Psych - appropriate affect Neuro - AOx person and place HEENT - MMM, glassy eyes CV - RRR no MRG Pulm - CTA BL but very diminished air entry BL, no O2 required, no increased work of breathing Abd - soft, nontender, nondistended Ext - warm and well perfused in baseline contracted position, palpable UE and LE pulses BL Sacrum - ulcer is the same as on admission and is dressed with dermabond per nursing Results Results: Laboratory Tests 06/03/18 0743: Anion Gap 5, Estimated GFR > 60, BUN/Creatinine Ratio 16.7, CBC w Diff NO MAN DIFF REQ, RBC 2.76 L, MCV 87.4, MCH 28.7, MCHC 32.9 L, RDW 18.6 H, MPV 7.6, Gran % 77.8 H, Lymphocytes % 14.4 L, Monocytes % 6.3, Eosinophils % 1.4, Basophils % 0.1, Absolute Granulocytes 5.5, Absolute Lymphocytes 1.0 L, Absolute Monocytes 0.4, Absolute Eosinophils 0.1, Absolute Basophils 0 06/02/18 1730: CBC w Diff NO MAN DIFF REQ, RBC 2.53 L, MCV 85.9, MCH 28.5, MCHC 33.2, RDW 18.4 H, MPV 7.8, Gran % 73.8, Lymphocytes % 16.8 L, Monocytes % 7.5, Eosinophils % 1.7, Basophils % 0.2, Absolute Granulocytes 5.2, Absolute Lymphocytes 1.2, Absolute Monocytes 0.5, Absolute Eosinophils 0.1, Absolute Basophils 0 06/02/18 0930: Anion Gap 5, Estimated GFR > 60, BUN/Creatinine Ratio 20.0, CBC w Diff MAN DIFF ORDERED, RBC 2.51 L, MCV 87.1, MCH 28.6, MCHC 32.8 L, RDW 18.8 H, MPV 7.8, Gran % 82.8 H, Lymphocytes % 9.6 L, Monocytes % 6.0, Eosinophils % 1.6, Basophils % 0, Absolute Granulocytes 6.2, Absolute Lymphocytes 0.7 L, Absolute Monocytes 0.5, Absolute Eosinophils 0.1, Absolute Basophils 0, Platelet Estimate INCREASED, Hypochromic-Microcytic 1+, Poikilocytosis FEW, Anisocytosis 1+ 06/01/18 0900: Anion Gap 6, Estimated GFR > 60, BUN/Creatinine Ratio 15.7, CBC w Diff NO MAN DIFF REQ, RBC 2.69 L, MCV 87.2, MCH 28.7, MCHC 32.9 L, RDW 18.0 H, MPV 8.1, Gran % 83.3 H, Lymphocytes % 12.7 L, Monocytes % 2.9, Eosinophils % 1.1, Basophils % 0, Absolute Granulocytes 7.1 H, Absolute Lymphocytes 1.1 L, Absolute Monocytes 0.2, Absolute Eosinophils 0.1, Absolute Basophils 0 Assessment/Plan Assessment: Assessment: Pt is a 72YOF with pmh of Parkinson's, CHF, COPD not on home O2 who is being cared for with home hospice. She was BIBA to the ED 12 days ago d/t SOB at home. Her daughter called for help even though the patient was on hospice care. On arrival, the pt was placed on 2L O2 NC because she was satting in the 80s and sats increased to 90s. She was found on CT to have BL lower lobe pnuemonia likely d/t aspiration. She also presented with hypernatremia, and dehydration with symptoms of delerium. PE was r/o. According to the pt's daughter, the pt had been living in [facility] for the past 1yr. She fell in May 2017 and was sent to [facility] for rehab, and then admitted snf when she failed to progress after the fall. The pt resided there until 3wk ago when her daughter took her home to her daughter's house as her mother qualified for release. Hospice care was started by [facility] at [facility] and helped the daughter get the pt set up at home. However, the daughter describes that she was not clear on the goals of hospice care and that when her mother began to have difficulty breathing at home, she called the hospice nurse but did not agree with the nurse's assessment. Then, she brought her mother in. The pt has been taken off hospice at this time. Pt was admitted to [facility] and started on Unasyn and IV 1/2 NS. Hypernatremia resolved, hypokalemia resolved, H/H stable. Swallow eval was performed and pt reevaluated 05/27/18. Pt did not initiate any swallowing. Barium swallow to be performed 05/28/18 showed no signs of aspiration but delayed initiation of swallows. Swallow reevaluated by speech pathology and advanced diet to honey thick liquids. Daughter is POA. Palliative care consult has occurred. Daughter believes that patient's wishes are to remain treating for cure. We will keep patient full code. PEG tube has been discussed. We will defer at this time and continue to educate on risks/benefits. Pt's medical records from [facility] have been retrieved for further information. Consent for medical records signed by daughter. Problem List 1. Pneumonia Pt had CT evidence of BL pneumonia which is likely d/t aspiration. Leukocytosis has resolved. Today pt is CTA BL but with poor air entry. - unasyn IV completed 7 days. - monitor for signs of infection as pt is high risk for aspiration d/t baseline status 2. Hypernatremia and Hypokalemia Pt's hypernatremia likely d/t dehydration d/t poor mental status. Mag is WNL so likely is not contributing to refractory hypokalemia. - both have resolved at this time - f/u BEP 3. Anemia Pt's H/H decreasing so FOBT was done and has been + x2. CRC is a concern. Unlikely we will pursue endoscopy or colonoscopy as pt is quite frail and not a good candidate for anasthesia. However, more likely concern is gastric ulcer as pt has a hx of an upper GI bleed which has been cauterized in the past. - type and screen is but pt is stable at this time - continue trending H/H, though at this time the pt does not seem to be in danger of a large bleed - transfuse if Hb <7 - continue pantoprazole 40mg qday IV 4. Delirium Pt's delirium was likely d/t hypernatremia though some AMS is likely baseline. Pt is AOx person and place today. - monitor pt's clinical status - f/u BEP tomorrow 5. Failure to Thrive/Cachexia Pt presented with severe protein-caloric malnutrition likely d/t AMS and her difficulty swallowing. Modified barium swallow has revealed that pt is not currently aspirating. She has been placed on a regular diet honey thick consistency. - continue to monitor weight - full feed assistance, slow - pt should be given any type of food requested within her diet and encouraged to eat full fat/high calorie foods - continue to monitor caloric count 6. Sacrococcygeal Ulcer Small Stage 2 decubital ulcer over the sacrum present on admission has been evaluated by wound care nurse. - Stable - Continue dermabond dressing as per wound care - continue turning pt q2 and avoiding direct pressure to sacrum 7. CHF/COPD Pt is not having any exascerbations at this time. Stable. - continue albuterol PRN 8. Parkinson's/Supranuclear Palsy Pt is stable at this time. She is not on any medications. This is a likely etiology of pt's progressive dysphagia over the last year and for her delayed swallow. - continue feeding as per above d/t high risk of aspiration - continue protecting patient's extremities with frequent repositioning in hospital bed and chair Diet: Regular w/ honey thick consistency DVT Prophy: ALPS Code: Full
[2018-06-03 08:51] LABS: ABSOLUTE BASOPHIL COUNT 0 /CUMM (0.0-0.2); ABSOLUTE EOSINOPHIL COUNT 0.1 /CUMM (0.0-0.7); ABSOLUTE GRANULOCYTE CT 5.5 /CUMM (1.4-6.5); ABSOLUTE MONOCYTE COUNT 0.4 /CUMM (0.10-0.60); BASOPHIL % 0.1 % (0.0-2.0); EOSINOPHIL % 1.4 % (0-5); GRANULOCYTE % 77.8 % (42.2-75.2); HEMATOCRIT 24.1 % (37-47); MEAN CORPUSCULAR HGB 28.7 PG (27.0-31.0); MEAN CORPUSCULAR HGB CONC 32.9 G/DL (33.0-37.0); MEAN CORPUSCULAR VOLUME 87.4 FL (81.0-99.0); MEAN PLATELET VOLUME 7.6 FL (7.4-10.4); PLATELET COUNT 587 /CUMM (130-400); RBC DISTRIBUTION WIDTH 18.6 % (11.5-14.5); RED BLOOD CELL CT 2.76 /CUMM (4.20-5.40); WHITE BLOOD CELL COUNT 7.1 /CUMM (4.8-10.8)
--- NOTE | 2018-06-03 11:45 | PN- Att Addend ---
See Addendum Attending Addendum Attending Brief Note Anticipating possible home discharge, this patient will need equipment at home to replace agency provided equipment in the home at present. The patient will require a hospital bed- semi-electric with gel mattress. She will require this as she needs to have that ability to change position not feasible with an ordinary bed due to her medical condition. She will require position changes to alleviate pain and prevent bed sores/decubitus ulcers. She requires a bed with adjustable heights to allow easier transfers to chair/ wheelchair. She will need a table that fits the bed for feeding. The patient will require a transport wheelchair. She is non-ambulatory and needs this to allow bringing her in for physician appointments and movement around the home. She is malnourished and weak due to her illness and supranuclear palsy. She will need these pieces of equipment indefinitely.
[2018-06-03 15:30] VITALS: BP 130/70
--- NOTE | 2018-06-03 19:48 | PN- Palliative Care ---
Subjective Subjective: Patient remains stable. She is tolerating PO intake - enjoys ice cream. Case discussed extensively with lead case manager, medical team. Daughter remains focused on pursuing PEG tube, however, this is not indicated at this time as patient is tolerating PO intake. It is not relevant whether patient is experiencing aspiration as PEG tube will offer no benefit in overall prognosis in setting of dysphagia. Patient may require frequent PO intake via use of spoon feeding, but this is preferred to an artificial intervention given ther overall risks of the procedure and the the fact that PEG feeding may reduce quality of life. Patient will require additional support at home and this will play a signficiant role in whether patient will successfully transition to home. She will require intensive social work support from a home care agency Review of Systems: no complaints at this time Objective Last 24 Hrs of Vital Signs/I&O Vital Signs Date Time Temp Pulse Resp B/P B/P Pulse O2 O2 Flow FiO2 Mean Ox Delivery Rate 06/03 1530 98.1 76 18 130/70 95 06/03 0638 98.3 74 20 134/76 92 06/02 2131 98.3 73 20 130/80 96 Intake & Output 06/03 1600 06/03 0800 06/03 0000 Intake Total 410 250 250 Output Total Balance 410 250 250 Intake, IV 110 10 10 Intake, Oral 300 240 240 Patient 66 lb 8 oz Weight Weight Bed scale Measurement Method Physical Exam: elderly, thin female, in bed, NAD Lungs-CTA CV - RRR Neuro - confused, immobile Assessment/Plan Assessment 72F w/ parkinsonism, failure to thrive, dysphagia Patient's Condition: stable Prognosis: guarded Is Patient Decisional? no Case Discussed With: family, house staff, attending, case management Goals of Care: life-prolonging Treatment Preferences: 1. Counseling to continue at home via home care [employer] 2. Supportive care as you are doing 3. PEG not recommended 4. Periodic discussion re: limiting life prolonging interventions in setting of catastrophic change in condition Other Recommendations: 1. At this time, continue with medical optimzation as you are doing 2. If patient can tolerate PO intake, avoid further discussions of PEG tube as this will likely offer little to the patient. As far as nutritional intake is concerned, focus on calorie dense foods. Contunue with counseling about disadvantages of PEG which are often overlooked in these types of discussions. It is continually helpful to ask decisionmaker - what is your understanding of the benefits and risks of this intervention 3. Depending upon dispositional decisions, hospice vs. VNA services will be needed. Ongoing goals of care discussions will be helpful regarding the purpose of home hospice - for example, when further hospitalizations related to expected decline of a terminal condition or no longer desired. The success of such an intervention will be highly dependent on the degree of support provided to the patient and family. 4. Ongoing pastoral care support to reinforce the concepts of spiritual vs. physical living.
[2018-06-03 22:00] VITALS: BP 120/60
[2018-06-04 06:08] VITALS: BP 110/62
--- NOTE | 2018-06-04 07:06 | PN- Housestaff ---
See Addendum Subjective Follow-up For: Aspiration Pneumonia Acute hypoxemic respiratory failure Hypernatremia COPD Parkinson's disease Severe protein-calorie malnutrition Subjective: I visited and examined the patient, she was lying back in her bed, alert and oriented, in no acute distress. She had a bowel movement yesterday which was guaiac positive again. No major complaints overnight from the nurse of the patient. Review of Systems Constitutional: Reports: see HPI. Objective Last 24 Hrs of Vital Signs/I&O Vital Signs Date Time Temp Pulse Resp B/P B/P Pulse O2 O2 Flow FiO2 Mean Ox Delivery Rate 06/04 1505 99.3 97 18 128/68 95 Room Air 06/04 0608 98.6 74 20 110/62 97 Room Air 06/03 2200 98.3 96 20 120/60 93 Room Air Intake & Output 06/04 1600 06/04 0800 06/04 0000 Intake Total 240 240 Output Total Balance 240 240 Intake, Oral 240 240 Number 2 Bowel Movements Patient 67 lb Weight Physical Exam General Appearance: Alert, Cooperative, No Acute Distress Skin: No Rashes Skin Temp/Moisture Exam: Warm/Dry Sepsis Skin Exam (color): Normal for Ethnicity HEENT: Atraumatic Cardiovascular: Regular Rate, Normal S1, Normal S2 Lungs: Clear to Auscultation, Normal Air Movement Abdomen: Normal Bowel Sounds, Soft, No Tenderness Extremities: No Clubbing, No Cyanosis, No Edema Assessment/Plan Assessment: This is a 72 y/o female with PMH of COPD, CHF, Parkison's, who came in with CC dyspnea with hypoxia requiring and noted to have hypernatremia and a CT showing c/o RLL consolidation. She came in with acute hypoxemic respiratory failure. which responded to 2L of O2 via nasal cannula. She has a history of COPD but was not on O2 at home. She is now off oxygen, with normal O2 saturations. We had the meeting with Dr. Sam, patient case coordinator, my senior resident, and the medical student regarding the plan of care. Delirium: The patient was delirious on admission, she has improved, she is alert and oriented now. Condition resolved Plan: We will reassess her condition. Aspiration pneumonia: Based on the imaging of chest. She has failed swallow test so she is NPO and the modified swallow test was done. She had slow swallowing, she can tolerate p.o. with thick fluids and puree. Talked to speech therapist on June 01, they changed diet to honey thick fluids plus puree. Plan: She received 7 days of IV Unasyn, physical exam shows clear lungs now with normal breathing sounds. And she is afebrile. Hypernatremia: On admission it was 155--->153 ---> 151 ---> 150 ---> 147--->144- --> 140--->137--->140 condition resolved Plan: Check at 6 AM. COPD, CHF, Parkinsons: Plan: Chronic and stable, she was on 1 L O2 via nasal cannula. Not on oxygen anymore. The patient will need nebulizer for comfort of respiration due to COPD , once she is discharged from the hospital. Hyperkalemia/Hypokalemia: Went from 2.9 to 7 as the K was drawn from same side that IV K was running. Condition resolved Plan: Recheck K stat, EKG She had a potassium of 3.0, 40 mEq of potassium was administered in IV with a rate of 100 mL/h after confirming pharmacy. Potassium 4.4--->4.9--->4.2--->4.0, stable Anemia: Hb 9.4. Which dropped to 8.6. Hemoglobin was 8.1 ---> 7.4--->7.6---> 7.9--->7.2--->7.7--->7.2--->7.9--->7.4 Plan: Con't monitor, she had a bowel movement at May 29 positive. Severe protein-calorie malnutrition: She has a BMI of 11.1, weight 59 pounds, weight has increased to 77 pounds and BMI to 14.5. Since the weight is measured by the bed scale, I am not sure about its accuracy. Plan: Nutritional consult was placed, they have recommended 3 ensure puddinds per day History of gastric ulcer with bleeding: She has history of gastric ulcer with bleeding, cauterization was done for her previously. Supranuclear palsy: Reported by family, which can contribute to the swallowing delay and difficulty that she has. Due to her chronic problems, being bedbound due to parkinsonism, and multiple medical problems, she will need a hospital bed with a gel mattress (to prevent bedsores), which should be semi-electric. Which is necessary for her her condition regarding getting to and out of bed. and also a wheelchair that is not self-propelled once she is discharged from the hospital, to ease her transfer. The patient needs this equipment in order to be able to leave at her home. Problem List: 1. Acute hypoxemic respiratory failure 2. Pneumonia 3. Aspiration pneumonia 4. COPD (chronic obstructive pulmonary disease) 5. Anemia 6. Supranuclear palsy 7. Parkinson disease 8. Severe malnutrition 9. Hypernatremia Pain Ratin Pain Location: NA Pain Goal: Remain pain free Pain Plan: NA Tomorrow's Labs & Rationales: CBC
--- NOTE | 2018-06-04 07:11 | PN- Student ---
See Addendum Rad Barnes 06/04/18 0710: Subjective Subjective: Pt was seen and examined at bedside today. She was alert and oriented to person and place. Yesterday evening after receiving a suppository, the pt was extremely tremulous and was found to have fecal impaction. She was manually disimpacted and passed a large amount of stool. She otherwise had no acute events overnight. Pt denies chest pain, SOB, abdominal pain, and headache but has leg and foot pain which she has been experiencing for many days now. She requested tylenol. Pt is also complaining of thirst. Objective Objective: Vital Signs Date Time Temp Pulse Resp B/P B/P Pulse O2 O2 Flow FiO2 Mean Ox Delivery Rate 06/04 0608 98.6 74 20 110/62 97 Room Air 06/03 2200 98.3 96 20 120/60 93 Room Air 06/03 1530 98.1 76 18 130/70 95 Intake & Output 06/04 0800 06/04 0000 06/03 1600 Intake Total 240 240 410 Output Total Balance 240 240 410 Intake, IV 110 Intake, Oral 240 240 300 Number 2 Bowel Movements Patient 67 lb 66 lb 8 oz Weight Weight Bed scale Measurement Method Physical Exam Gen - NAD, resting, cachectic Psych - appropriate affect Neuro - AOx person and place HEENT - MMM, glassy eyes CV - RRR no MRG Pulm - CTA BL but very diminished air entry BL, no O2 required, no increased work of breathing Abd - soft, nontender, nondistended Ext - warm and well perfused in baseline contracted position, palpable UE and LE pulses BL Sacrum - ulcer is the same as on admission and is dressed with dermabond per nursing Results Results: Laboratory Tests 06/04/18 0805: Anion Gap 5, Estimated GFR > 60, BUN/Creatinine Ratio 13.3, CBC w Diff NO MAN DIFF REQ, RBC 2.59 L, MCV 87.4, MCH 28.7, MCHC 32.9 L, RDW 18.2 H, MPV 7.7, Gran % 81.1 H, Lymphocytes % 11.8 L, Monocytes % 5.4, Eosinophils % 1.7, Basophils % 0, Absolute Granulocytes 7.4 H, Absolute Lymphocytes 1.1 L, Absolute Monocytes 0.5, Absolute Eosinophils 0.2, Absolute Basophils 0 06/03/18 0743: Anion Gap 5, Estimated GFR > 60, BUN/Creatinine Ratio 16.7, CBC w Diff NO MAN DIFF REQ, RBC 2.76 L, MCV 87.4, MCH 28.7, MCHC 32.9 L, RDW 18.6 H, MPV 7.6, Gran % 77.8 H, Lymphocytes % 14.4 L, Monocytes % 6.3, Eosinophils % 1.4, Basophils % 0.1, Absolute Granulocytes 5.5, Absolute Lymphocytes 1.0 L, Absolute Monocytes 0.4, Absolute Eosinophils 0.1, Absolute Basophils 0 06/02/18 1730: CBC w Diff NO MAN DIFF REQ, RBC 2.53 L, MCV 85.9, MCH 28.5, MCHC 33.2, RDW 18.4 H, MPV 7.8, Gran % 73.8, Lymphocytes % 16.8 L, Monocytes % 7.5, Eosinophils % 1.7, Basophils % 0.2, Absolute Granulocytes 5.2, Absolute Lymphocytes 1.2, Absolute Monocytes 0.5, Absolute Eosinophils 0.1, Absolute Basophils 0 06/02/18 0930: Anion Gap 5, Estimated GFR > 60, BUN/Creatinine Ratio 20.0, CBC w Diff MAN DIFF ORDERED, RBC 2.51 L, MCV 87.1, MCH 28.6, MCHC 32.8 L, RDW 18.8 H, MPV 7.8, Gran % 82.8 H, Lymphocytes % 9.6 L, Monocytes % 6.0, Eosinophils % 1.6, Basophils % 0, Absolute Granulocytes 6.2, Absolute Lymphocytes 0.7 L, Absolute Monocytes 0.5, Absolute Eosinophils 0.1, Absolute Basophils 0, Platelet Estimate INCREASED, Hypochromic-Microcytic 1+, Poikilocytosis FEW, Anisocytosis 1+ Assessment/Plan Assessment: Assessment: Pt is a 72YOF with pmh of Parkinson's, CHF, COPD not on home O2 who is being cared for with home hospice. She was BIBA to the ED 13 days ago d/t SOB at home. Her daughter called for help even though the patient was on hospice care. On arrival, the pt was placed on 2L O2 NC because she was satting in the 80s and sats increased to 90s. She was found on CT to have BL lower lobe pnuemonia likely d/t aspiration. She also presented with hypernatremia, and dehydration with symptoms of delerium. PE was r/o. According to the pt's daughter, the pt had been living in [facility] for the past 1yr. She fell in May 2017 and was sent to [facility] for rehab, and then admitted long-term when she failed to progress after the fall. The pt resided there until 3wk ago when her daughter took her home to her daughter's house as her mother qualified for release. Hospice care was started by [facility] at [facility] and helped the daughter get the pt set up at home. However, the daughter describes that she was not clear on the goals of hospice care and that when her mother began to have difficulty breathing at home, she called the hospice nurse but did not agree with the nurse's assessment. Then, she brought her mother in. The pt has been taken off hospice at this time. Pt was admitted to [facility] and started on Unasyn and IV 1/2 NS. Hypernatremia resolved, hypokalemia resolved, H/H stable. Swallow eval was performed and pt reevaluated 05/27/18. Pt did not initiate any swallowing. Barium swallow to be performed 05/28/18 showed no signs of aspiration but delayed initiation of swallows. Swallow reevaluated by speech pathology and advanced diet to honey thick liquids. Daughter is POA. Palliative care consult has occurred. Daughter believes that patient's wishes are to remain treating for cure. We will keep patient full code. PEG tube has been discussed. We will defer at this time and continue to educate on risks/benefits. Pt's medical records from [facility] have been retrieved for further information. Consent for medical records signed by daughter. As pt has been taken off of hospice care by the family, she will need proper equipment at home. We have requested coverage of a hospital bed w/ table, wheelchair, and nebulizer from [employer] [facility]. Daughter is aware. Case management is involved. Problem List 1. Pneumonia Pt had CT evidence of BL pneumonia which is likely d/t aspiration. Leukocytosis has resolved. Today pt is CTA BL but with poor air entry. - unasyn IV completed 7 days. - monitor for signs of infection as pt is high risk for aspiration d/t baseline status 2. Hypernatremia and Hypokalemia Pt's hypernatremia likely d/t dehydration d/t poor mental status. Mag is WNL so likely is not contributing to refractory hypokalemia. - both have resolved at this time - f/u BEP 3. Anemia Pt's H/H decreasing so FOBT was done and has been + x2. CRC is a concern. Unlikely we will pursue endoscopy or colonoscopy as pt is quite frail and not a good candidate for anasthesia. However, more likely concern is gastric ulcer as pt has a hx of an upper GI bleed which has been cauterized in the past. - type and screen is but pt is stable at this time - continue trending H/H, though at this time the pt does not seem to be in danger of a large bleed - transfuse if Hb <7 - continue pantoprazole 40mg qday IV 4. Delirium Pt's delirium was likely d/t hypernatremia though some AMS is likely baseline. Pt is AOx person and place today. - monitor pt's clinical status - f/u BEP tomorrow 5. Failure to Thrive/Cachexia Pt presented with severe protein-caloric malnutrition likely d/t AMS and her difficulty swallowing. Modified barium swallow has revealed that pt is not currently aspirating. She has been placed on a regular diet honey thick consistency. - continue to monitor weight - full feed assistance, slow - pt should be given any type of food requested within her diet and encouraged to eat full fat/high calorie foods - continue to monitor caloric count 6. Sacrococcygeal Ulcer Small Stage 2 decubital ulcer over the sacrum present on admission has been evaluated by wound care nurse. - Stable - Continue dermabond dressing as per wound care - continue turning pt q2 and avoiding direct pressure to sacrum 7. CHF/COPD Pt is not having any exascerbations at this time. Stable. - continue albuterol PRN 8. Parkinson's/Supranuclear Palsy Pt is stable at this time. She is not on any medications. This is a likely etiology of pt's progressive dysphagia over the last year and for her delayed swallow. - continue feeding as per above d/t high risk of aspiration - continue protecting patient's extremities with frequent repositioning in hospital bed and chair Diet: Regular w/ honey thick consistency DVT Prophy: ALPS Code: Full
[2018-06-04 10:03] LABS: ABSOLUTE BASOPHIL COUNT 0 /CUMM (0.0-0.2); ABSOLUTE GRANULOCYTE CT 7.4 /CUMM (1.4-6.5); ABSOLUTE MONOCYTE COUNT 0.5 /CUMM (0.10-0.60); BASOPHIL % 0 % (0.0-2.0)
[2018-06-04 10:43] LABS: ABSOLUTE EOSINOPHIL COUNT 0.2 /CUMM (0.0-0.7); ABSOLUTE LYMPH COUNT 1.1 /CUMM (1.2-3.4); EOSINOPHIL % 1.7 % (0-5); MEAN CORPUSCULAR HGB 28.7 PG (27.0-31.0); MEAN CORPUSCULAR HGB CONC 32.9 G/DL (33.0-37.0); MEAN CORPUSCULAR VOLUME 87.4 FL (81.0-99.0); MEAN PLATELET VOLUME 7.7 FL (7.4-10.4); PLATELET COUNT 647 /CUMM (130-400); RBC DISTRIBUTION WIDTH 18.2 % (11.5-14.5); RED BLOOD CELL CT 2.59 /CUMM (4.20-5.40); WHITE BLOOD CELL COUNT 9.1 /CUMM (4.8-10.8)
[2018-06-04 10:55] LABS: HEMATOCRIT 22.7 % (37-47)
[2018-06-04 11:02] LABS: GRANULOCYTE % 81.1 % (42.2-75.2)
[2018-06-04 15:05] VITALS: BP 128/68
[2018-06-04 22:58] VITALS: BP 136/60
[2018-06-05 06:10] VITALS: BP 120/60
--- NOTE | 2018-06-05 07:05 | PN- Housestaff ---
See Addendum Subjective Follow-up For: Aspiration Pneumonia Acute hypoxemic respiratory failure Hypernatremia COPD Parkinson's disease Severe protein-calorie malnutrition Complaints: Generalized body aches Subjective: Pt seen in bed, in NAD. complains of chronic genenralized body aches derek in feet , buttocks & arms Review of Systems Constitutional: Reports: no symptoms. EENTM: Reports: no symptoms. Cardiovascular: Reports: no symptoms. Respiratory: Reports: no symptoms. Gastrointestinal: Reports: no symptoms. Genitourinary: Reports: no symptoms. Musculoskeletal: Reports: see HPI. Skin: Reports: no symptoms. Neurological/Psychological: Reports: no symptoms. Hematologic/Endocrine: Reports: no symptoms. Immunologic/Allergic: Reports: no symptoms. Objective Last 24 Hrs of Vital Signs/I&O Vital Signs Date Time Temp Pulse Resp B/P B/P Pulse O2 O2 Flow FiO2 Mean Ox Delivery Rate 06/05 1415 97.0 81 20 110/60 98 Room Air 06/05 0610 97.9 73 20 120/60 96 Room Air 06/04 2258 98.5 83 18 136/60 98 Room Air Intake & Output 06/05 1600 06/05 0800 06/05 0000 Intake Total 110 50 Output Total Balance 110 50 Intake, IV 10 Intake, Oral 100 50 Physical Exam General Appearance: Alert, Oriented X3, Cooperative, No Acute Distress Skin: No Rashes, No Breakdown, No Significant Lesion Skin Temp/Moisture Exam: Cool/Dry Sepsis Skin Exam (color): Normal for Ethnicity HEENT: Atraumatic, Mucous Membr. moist/pink Neck: Supple, No JVD Cardiovascular: Regular Rate, Normal S1, Normal S2, No Murmurs Lungs: Clear to Auscultation, Normal Air Movement Abdomen: Normal Bowel Sounds, Soft, No Tenderness, No Hepatospenomegaly, No Masses Neurological: Normal Speech, Normal Tone Extremities: No Clubbing, No Cyanosis, No Edema, Normal Pulses, No Tenderness/ Swelling Vascular: Normal Pulses, Pulses Symmetrical Assessment/Plan Assessment: 72 y/o female with PMH of COPD, CHF, Parkison's, who came in with CC dyspnea with hypoxia requiring and noted to have hypernatremia and a CT showing c/o RLL consolidation. -Aspiration pneumonia: She is placed on honey thick fluids and puree. -Hypernatremia: resolved -Hyperkalemia/Hypokalemia: resolved -Anemia: Hb is stable -Severe protein-calorie malnutrition:Following nutritional consult recs -Delirium:resolved -Supranuclear palsy: Reported by family, which can contribute to the swallowing delay and difficulty that she has. -Due to her chronic problems, being bedbound due to parkinsonism, and multiple medical problems, she will need a hospital bed with a gel mattress (to prevent bedsores), which should be semi-electric. Which is necessary for her her condition regarding getting to and out of bed. and also a wheelchair that is not self-propelled once she is discharged from the hospital, to ease her transfer. The patient needs this equipment in order to be able to leave at her home. plant floor automation manager is helping us obtain these. Otherwise, she is stable to be d/ c home. Problem List: 1. Acute hypoxemic respiratory failure 2. Pneumonia 3. COPD (chronic obstructive pulmonary disease) 4. Parkinson disease 5. Severe malnutrition Pain Ratin Pain Location: feet, buttocks, arms Pain Goal: Pain 4 or less Pain Plan: follow pain pathway Tomorrow's Labs & Rationales: not needed
[2018-06-05 09:03] LABS: ABSOLUTE BASOPHIL COUNT 0 /CUMM (0.0-0.2); ABSOLUTE EOSINOPHIL COUNT 0 /CUMM (0.0-0.7); ABSOLUTE GRANULOCYTE CT 4.7 /CUMM (1.4-6.5); ABSOLUTE LYMPH COUNT 1.4 /CUMM (1.2-3.4); ABSOLUTE MONOCYTE COUNT 0.5 /CUMM (0.10-0.60); BASOPHIL % 0 % (0.0-2.0); EOSINOPHIL % 0.6 % (0-5); GRANULOCYTE % 70.3 % (42.2-75.2); HEMATOCRIT 24.5 % (37-47); MEAN CORPUSCULAR HGB 28.5 PG (27.0-31.0); MEAN CORPUSCULAR HGB CONC 32.9 G/DL (33.0-37.0); MEAN CORPUSCULAR VOLUME 86.6 FL (81.0-99.0); MEAN PLATELET VOLUME 7.6 FL (7.4-10.4); PLATELET COUNT 664 /CUMM (130-400); RBC DISTRIBUTION WIDTH 18.4 % (11.5-14.5); RED BLOOD CELL CT 2.83 /CUMM (4.20-5.40); WHITE BLOOD CELL COUNT 6.8 /CUMM (4.8-10.8)
[2018-06-05 14:15] VITALS: BP 110/60
[2018-06-05 22:06] VITALS: BP 120/70
[2018-06-06 06:33] VITALS: BP 126/72
--- NOTE | 2018-06-06 07:30 | PN- Housestaff ---
See Addendum Subjective Follow-up For: Aspiration Pneumonia Acute hypoxemic respiratory failure Hypernatremia COPD Parkinson's disease Severe protein-calorie malnutrition Subjective: Afebrile overnight. Patient is seen and examined in bed. Patient denies any acute events overnight. Patient states this morning that she is feeling ok without any specific complaints. Patient is on home hospice and bedbound at baseline. Patient otherwise denies any fever, chills, fatigue, abdominal pain, chest pain, diarrhea, and constipation. Review of Systems Constitutional: Reports: see HPI. Objective Last 24 Hrs of Vital Signs/I&O Vital Signs Date Time Temp Pulse Resp B/P B/P Pulse O2 O2 Flow FiO2 Mean Ox Delivery Rate 06/06 0633 98.1 78 20 126/72 97 06/05 2206 97.9 81 20 120/70 97 Room Air 06/05 1415 97.0 81 20 110/60 98 Room Air Intake & Output 06/06 1600 06/06 0800 06/06 0000 Intake Total 200 Output Total Balance 200 Intake, Oral 200 Physical Exam General Appearance: Alert, Oriented X3, Cooperative, No Acute Distress Skin: No Rashes, No Breakdown HEENT: Atraumatic Neck: Supple, No JVD Cardiovascular: Regular Rate, Normal S1, Normal S2 Lungs: Clear to Auscultation Extremities: No Edema, Normal Pulses Assessment/Plan Assessment: 72 y/o female with PMH of COPD, CHF, Parkison's, who came in with CC dyspnea with hypoxia requiring and noted to have hypernatremia and a CT showing c/o RLL consolidation. She came in with acute hypoxemic respiratory failure. which responded to 2L of O2 via nasal cannula. She has a history of COPD but was not on O2 at home. She is now off oxygen, with normal O2 saturations. We had the meeting with Dr. Sam, bottle caser, my senior resident, and the medical student regarding the plan of care. Delirium: The patient was delirious on admission, she has improved, she is alert and oriented now. Condition resolved Plan: We will reassess her condition. Aspiration pneumonia: Based on the imaging of chest. She has failed swallow test so she is NPO and the modified swallow test was done. She had slow swallowing, she can tolerate p.o. with thick fluids and puree. Talked to speech therapist on June 01, they changed diet to honey thick fluids plus puree. Plan: She received 7 days of IV Unasyn, physical exam shows clear lungs now with normal breathing sounds. And she is afebrile. Hypernatremia: On admission it was 155--->153 ---> 151 ---> 150 ---> 147--->144- --> 140--->137--->140 condition resolved Plan: Check at 6 AM. COPD, CHF, Parkinsons: Plan: Chronic and stable, she was on 1 L O2 via nasal cannula. Not on oxygen anymore. The patient will need nebulizer for comfort of respiration due to COPD , once she is discharged from the hospital. Hyperkalemia/Hypokalemia: Went from 2.9 to 7 as the K was drawn from same side that IV K was running. Condition resolved Plan: Recheck K stat, EKG She had a potassium of 3.0, 40 mEq of potassium was administered in IV with a rate of 100 mL/h after confirming pharmacy. Potassium 4.4--->4.9--->4.2--->4.0, stable Anemia: Hb 9.4. Which dropped to 8.6. Hemoglobin was 8.1 ---> 7.4--->7.6---> 7.9--->7.2--->7.7--->7.2--->7.9--->7.4 Plan: Con't monitor, she had a bowel movement at May 29 positive. Severe protein-calorie malnutrition: She has a BMI of 11.1, weight 59 pounds, weight has increased to 77 pounds and BMI to 14.5. Since the weight is measured by the bed scale, I am not sure about its accuracy. Plan: Nutritional consult was placed, they have recommended 3 ensure puddinds per day History of gastric ulcer with bleeding: She has history of gastric ulcer with bleeding, cauterization was done for her previously. Supranuclear palsy: Reported by family, which can contribute to the swallowing delay and difficulty that she has. Due to her chronic problems, being bedbound due to parkinsonism, and multiple medical problems, she will need a hospital bed with a gel mattress (to prevent bedsores), which should be semi-electric. Which is necessary for her her condition regarding getting to and out of bed. and also a wheelchair that is not self-propelled once she is discharged from the hospital, to ease her transfer. The patient needs this equipment in order to be able to leave at her home. Problem List: 1. Acute hypoxemic respiratory failure 2. COPD (chronic obstructive pulmonary disease) 3. Parkinson disease 4. Severe malnutrition Pain Ratin Pain Location: na Pain Goal: Remain pain free Pain Plan: na Tomorrow's Labs & Rationales: tito
[2018-06-06 14:30] VITALS: BP 120/60
[2018-06-06 22:38] VITALS: BP 112/60
[2018-06-07 06:21] VITALS: BP 118/64
--- NOTE | 2018-06-07 07:54 | PN- Housestaff ---
See Addendum Subjective Follow-up For: Aspiration Pneumonia Acute hypoxemic respiratory failure Hypernatremia COPD Parkinson's disease Severe protein-calorie malnutrition Subjective: I visited and examined the patient, she was lying making her bed, alert and oriented, in no acute distress. She reports that she has pain in her legs and feet. No other major complaints overnight reported by the patient or nurse. Last bowel movement was June 03, one before that was May 29, [place] guaiac positive. Review of Systems Constitutional: Reports: see HPI. Objective Last 24 Hrs of Vital Signs/I&O Vital Signs Date Time Temp Pulse Resp B/P B/P Pulse O2 O2 Flow FiO2 Mean Ox Delivery Rate 06/07 0621 98.6 82 18 118/64 98 06/06 2238 98.3 79 18 112/60 98 Room Air 06/06 1430 98.6 87 20 120/60 92 Room Air Intake & Output 06/07 1600 06/07 0800 06/07 0000 Intake Total 120 240 Output Total Balance 120 240 Intake, Oral 120 240 Physical Exam General Appearance: Alert, Cooperative, No Acute Distress Skin: No Rashes Skin Temp/Moisture Exam: Warm/Dry Sepsis Skin Exam (color): Normal for Ethnicity HEENT: Atraumatic Cardiovascular: Regular Rate, Normal S1, Normal S2 Lungs: Clear to Auscultation, Normal Air Movement Abdomen: Normal Bowel Sounds, Soft, No Tenderness Extremities: No Edema, Normal Pulses, Contracture deformity Assessment/Plan Assessment: his is a 72 y/o female with PMH of COPD, CHF, Parkison's, who came in with CC dyspnea with hypoxia requiring and noted to have hypernatremia and a CT showing c/o RLL consolidation. She came in with acute hypoxemic respiratory failure. which responded to 2L of O2 via nasal cannula. She has a history of COPD but was not on O2 at home. She is now off oxygen, with normal O2 saturations. We had the meeting with Dr. Sam, pillowcase turner, my senior resident, and the medical student regarding the plan of care. Her condition has improved and is back to baseline. Delirium: The patient was delirious on admission, she has improved, she is alert and oriented now. Condition resolved Plan: We will reassess her condition. Aspiration pneumonia: Based on the imaging of chest. She has failed swallow test so she is NPO and the modified swallow test was done. She had slow swallowing, she can tolerate p.o. with thick fluids and puree. Talked to speech therapist on June 01, they changed diet to honey thick fluids plus puree. Plan: She received 7 days of IV Unasyn, physical exam shows clear lungs now with normal breathing sounds. And she is afebrile. Hypernatremia: On admission it was 155--->153 ---> 151 ---> 150 ---> 147--->144- --> 140--->137--->140 condition resolved Plan: Check at 6 AM. COPD, CHF, Parkinsons: Plan: Chronic and stable, she was on 1 L O2 via nasal cannula. Not on oxygen anymore. The patient will need nebulizer for comfort of respiration due to COPD , once she is discharged from the hospital. Hyperkalemia/Hypokalemia: Went from 2.9 to 7 as the K was drawn from same side that IV K was running. Condition resolved Plan: Recheck K stat, EKG She had a potassium of 3.0, 40 mEq of potassium was administered in IV with a rate of 100 mL/h after confirming pharmacy. Potassium 4.4--->4.9--->4.2--->4.0, stable Anemia: Hb 9.4. Which dropped to 8.6. Hemoglobin was 8.1 ---> 7.4--->7.6---> 7.9--->7.2--->7.7--->7.2--->7.9--->7.4--->8.1 Plan: Con't monitor, she had a bowel movement at May 29 positive. Severe protein-calorie malnutrition: She has a BMI of 11.1, weight 59 pounds, weight has increased to 77 pounds and BMI to 14.5. Since the weight is measured by the bed scale, I am not sure about its accuracy. Plan: Nutritional consult was placed, they have recommended 3 ensure puddinds per day History of gastric ulcer with bleeding: She has history of gastric ulcer with bleeding, cauterization was done for her previously. Supranuclear palsy: Reported by family, which can contribute to the swallowing delay and difficulty that she has. Due to her chronic problems, being bedbound due to parkinsonism, and multiple medical problems, she will need a hospital bed with a gel mattress (to prevent bedsores), which should be semi-electric. Which is necessary for her her condition regarding getting to and out of bed. and also a wheelchair that is not self-propelled once she is discharged from the hospital, to ease her transfer. The patient needs this equipment in order to be able to leave at her home. Problem List: 1. Acute hypoxemic respiratory failure 2. Pneumonia 3. Aspiration pneumonia 4. COPD (chronic obstructive pulmonary disease) 5. Anemia 6. Supranuclear palsy 7. Parkinson disease 8. Severe malnutrition 9. Hypernatremia Pain Ratin Pain Location: Bilateral lower extremities Pain Goal: Pain 4 or less Pain Plan: Acetaminophen Tomorrow's Labs & Rationales: As indicated
[2018-06-07 09:12] LABS: ABSOLUTE BASOPHIL COUNT 0 /CUMM (0.0-0.2); ABSOLUTE EOSINOPHIL COUNT 0.1 /CUMM (0.0-0.7); ABSOLUTE GRANULOCYTE CT 5.9 /CUMM (1.4-6.5); ABSOLUTE LYMPH COUNT 0.9 /CUMM (1.2-3.4); ABSOLUTE MONOCYTE COUNT 0.5 /CUMM (0.10-0.60); BASOPHIL % 0 % (0.0-2.0); EOSINOPHIL % 1.4 % (0-5); GRANULOCYTE % 79.2 % (42.2-75.2); HEMATOCRIT 24.2 % (37-47); MEAN CORPUSCULAR HGB 28.5 PG (27.0-31.0); MEAN CORPUSCULAR HGB CONC 32.6 G/DL (33.0-37.0); MEAN CORPUSCULAR VOLUME 87.4 FL (81.0-99.0); MEAN PLATELET VOLUME 7.2 FL (7.4-10.4); PLATELET COUNT 727 /CUMM (130-400); RBC DISTRIBUTION WIDTH 18.3 % (11.5-14.5); RED BLOOD CELL CT 2.77 /CUMM (4.20-5.40); WHITE BLOOD CELL COUNT 7.4 /CUMM (4.8-10.8)
[2018-06-07 16:03] VITALS: BP 120/60
[2018-06-07 22:36] VITALS: BP 110/60
--- NOTE | 2018-06-08 06:34 | PN- Housestaff ---
See Addendum Subjective Follow-up For: Aspiration Pneumonia Acute hypoxemic respiratory failure Hypernatremia COPD Parkinson's disease Severe protein-calorie malnutrition Subjective: I visited the patient was morning, she was lying back in her bed, in no acute distress, she was alert and oriented. No major complaints reported by the nurse overnight. Review of Systems Constitutional: Reports: see HPI. Objective Last 24 Hrs of Vital Signs/I&O Vital Signs Date Time Temp Pulse Resp B/P B/P Pulse O2 O2 Flow FiO2 Mean Ox Delivery Rate 06/08 1432 98.7 75 18 126/82 99 Room Air 06/08 0704 97.8 87 18 130/60 97 06/07 2236 98.6 88 18 110/60 96 Room Air Intake & Output 06/08 1600 06/08 0800 06/08 0000 Intake Total 100 450 Output Total Balance 100 450 Intake, Oral 100 450 Number 2 Bowel Movements Physical Exam General Appearance: Alert, Oriented X3, Cooperative, No Acute Distress Skin: No Rashes HEENT: Atraumatic Cardiovascular: Regular Rate, Normal S1, Normal S2 Lungs: Clear to Auscultation, Normal Air Movement Abdomen: Normal Bowel Sounds, Soft, No Tenderness Assessment/Plan Assessment: his is a 72 y/o female with PMH of COPD, CHF, Parkison's, who came in with CC dyspnea with hypoxia requiring and noted to have hypernatremia and a CT showing c/o RLL consolidation. She came in with acute hypoxemic respiratory failure. which responded to 2L of O2 via nasal cannula. She has a history of COPD but was not on O2 at home. She is now off oxygen, with normal O2 saturations. We had the meeting with Dr. Sam, pillowcase maker, my senior resident, and the medical student regarding the plan of care. Her condition has improved and is back to baseline. Delirium: The patient was delirious on admission, she has improved, she is alert and oriented now. Condition resolved Plan: We will reassess her condition. Aspiration pneumonia: Based on the imaging of chest. She has failed swallow test so she is NPO and the modified swallow test was done. She had slow swallowing, she can tolerate p.o. with thick fluids and puree. Talked to speech therapist on June 01, they changed diet to honey thick fluids plus puree. Plan: She received 7 days of IV Unasyn, physical exam shows clear lungs now with normal breathing sounds. And she is afebrile. Hypernatremia: On admission it was 155--->153 ---> 151 ---> 150 ---> 147--->144- --> 140--->137--->140 condition resolved Plan: Check at 6 AM. COPD, CHF, Parkinsons: Plan: Chronic and stable, she was on 1 L O2 via nasal cannula. Not on oxygen anymore. The patient will need nebulizer for comfort of respiration due to COPD , once she is discharged from the hospital. Hyperkalemia/Hypokalemia: Went from 2.9 to 7 as the K was drawn from same side that IV K was running. Condition resolved Plan: Recheck K stat, EKG She had a potassium of 3.0, 40 mEq of potassium was administered in IV with a rate of 100 mL/h after confirming pharmacy. Potassium 4.4--->4.9--->4.2--->4.0, stable Anemia: Hb 9.4. Which dropped to 8.6. Hemoglobin was 8.1 ---> 7.4--->7.6---> 7.9--->7.2--->7.7--->7.2--->7.9--->7.4--->8.1---> 6.3 Plan: Con't monitor, she had a bowel movement at May 29 positive. Next one was on June 03, and June 08 she only passed minimal amount of stool. Ferrous sulfate was started, and type and crossmatch was done and transfused 1 unit of PRBC. Severe protein-calorie malnutrition: She has a BMI of 11.1, weight 59 pounds, weight has increased to 77 pounds and BMI to 14.5. Since the weight is measured by the bed scale, I am not sure about its accuracy. Plan: Nutritional consult was placed, they have recommended 3 ensure puddinds per day History of gastric ulcer with bleeding: She has history of gastric ulcer with bleeding, cauterization was done for her previously. Supranuclear palsy: Reported by family, which can contribute to the swallowing delay and difficulty that she has. Due to her chronic problems, being bedbound due to parkinsonism, and multiple medical problems, she will need a hospital bed with a gel mattress (to prevent bedsores), which should be semi-electric. Which is necessary for her her condition regarding getting to and out of bed. and also a wheelchair that is not self-propelled once she is discharged from the hospital, to ease her transfer. The patient needs this equipment in order to be able to leave at her home. Problem List: 1. Acute hypoxemic respiratory failure 2. Pneumonia 3. Aspiration pneumonia 4. COPD (chronic obstructive pulmonary disease) 5. Anemia 6. Supranuclear palsy 7. Parkinson disease 8. Severe malnutrition 9. Hypernatremia Pain Ratin Pain Location: Not applicable Pain Goal: Remain pain free Pain Plan: Not applicable Tomorrow's Labs & Rationales: As indicated
[2018-06-08 07:04] VITALS: BP 130/60
[2018-06-08 08:56] LABS: ABSOLUTE BASOPHIL COUNT 0 /CUMM (0.0-0.2); ABSOLUTE GRANULOCYTE CT 6.4 /CUMM (1.4-6.5); ABSOLUTE MONOCYTE COUNT 0.4 /CUMM (0.10-0.60); BASOPHIL % 0 % (0.0-2.0); RED BLOOD CELL CT 2.28 /CUMM (4.20-5.40); WHITE BLOOD CELL COUNT 7.8 /CUMM (4.8-10.8)
[2018-06-08 09:24] LABS: ABSOLUTE EOSINOPHIL COUNT 0 /CUMM (0.0-0.7); EOSINOPHIL % 0.6 % (0-5); GRANULOCYTE % 81.6 % (42.2-75.2); MEAN CORPUSCULAR HGB 27.5 PG (27.0-31.0); MEAN CORPUSCULAR HGB CONC 31.9 G/DL (33.0-37.0); MEAN CORPUSCULAR VOLUME 86.3 FL (81.0-99.0); MEAN PLATELET VOLUME 7.2 FL (7.4-10.4); PLATELET COUNT 625 /CUMM (130-400); RBC DISTRIBUTION WIDTH 18.4 % (11.5-14.5)
[2018-06-08 09:33] LABS: HEMATOCRIT 19.7 % (37-47)
[2018-06-08 14:32] VITALS: BP 126/82
[2018-06-08 22:12] VITALS: BP 132/70
[2018-06-09 06:20] VITALS: BP 136/66
[2018-06-09 10:47] LABS: ABSOLUTE BASOPHIL COUNT 0 /CUMM (0.0-0.2); ABSOLUTE EOSINOPHIL COUNT 0 /CUMM (0.0-0.7); ABSOLUTE GRANULOCYTE CT 5.3 /CUMM (1.4-6.5); ABSOLUTE LYMPH COUNT 1.1 /CUMM (1.2-3.4); ABSOLUTE MONOCYTE COUNT 0.5 /CUMM (0.10-0.60); BASOPHIL % 0 % (0.0-2.0); EOSINOPHIL % 0.5 % (0-5); GRANULOCYTE % 76.2 % (42.2-75.2); MEAN CORPUSCULAR HGB 28.3 PG (27.0-31.0); MEAN CORPUSCULAR HGB CONC 33.1 G/DL (33.0-37.0); MEAN CORPUSCULAR VOLUME 85.6 FL (81.0-99.0); MEAN PLATELET VOLUME 7.1 FL (7.4-10.4); PLATELET COUNT 618 /CUMM (130-400); RBC DISTRIBUTION WIDTH 16.2 % (11.5-14.5); WHITE BLOOD CELL COUNT 6.9 /CUMM (4.8-10.8)
[2018-06-09 11:06] LABS: HEMATOCRIT 27.3 % (37-47); RED BLOOD CELL CT 3.19 /CUMM (4.20-5.40)
[2018-06-09 14:17] VITALS: BP 132/70
--- NOTE | 2018-06-09 18:33 | PN- Housestaff ---
Michael Bradley 06/09/18 1833: Subjective Follow-up For: Aspiration Pneumonia Acute hypoxemic respiratory failure Hypernatremia COPD Parkinson's disease Severe protein-calorie malnutrition Complaints: pt unable to provide hx Subjective: Pt seen and examined this am. She was verbal, though with monosyllabic answers. She offered no complains. She was oriented to self but not to place or time. She is afebrile, was breathing comfortably on room air. Review of Systems Constitutional: Reports: see HPI. Comments: Unable to obtain ROS due to mental status. Objective Last 24 Hrs of Vital Signs/I&O Vital Signs Date Time Temp Pulse Resp B/P B/P Pulse O2 O2 Flow FiO2 Mean Ox Delivery Rate 06/09 1417 97.4 71 12 132/70 98 Room Air 06/09 0800 97 Room Air 06/09 0620 97.7 85 20 136/66 96 06/08 2212 98.0 84 18 132/70 96 Room Air Intake & Output 06/09 1600 06/09 0800 06/09 0000 Intake Total 240 30 350 Output Total Balance 240 30 350 Intake, Blood 350 Product Intake, Oral 240 30 Physical Exam General Appearance: Cooperative, No Acute Distress HEENT: Atraumatic Neck: Supple Cardiovascular: Regular Rate, Normal S1, Normal S2 Lungs: Clear to Auscultation, Normal Air Movement Abdomen: Normal Bowel Sounds, Soft Current Medications: Current Medications Sig/Tootie Start time Last Medication Dose Route Stop Time Status Admin Acetaminophen 650 MG Q6P PRN 05/23 0330 AC 06/09 PO 0747 Acetaminophen 1,000 MG Q6P PRN 05/23 0330 AC 06/07 IV 1650 Artificial Tears 2 GTT TID 05/26 1400 AC 06/09 OPH 1326 Ferrous Sulfate 325 MG DAILY 06/08 1334 AC 06/09 PO 0741 Omeprazole 40 MG DAILY AC 06/05 0700 AC 06/09 PO 0646 Polyethylene Glycol 17 GM DAILY 06/07 1029 AC 06/09 PO 0741 Senna/Docusate Sodium 1 TAB BID 06/08 0900 AC 06/09 PO 0741 Last 24 Hrs of Lab/Hermes Results Last 24 Hrs of Labs/Mics: Laboratory Tests 06/09/18 1005: CBC w Diff NO MAN DIFF REQ, RBC 3.19 L, MCV 85.6, MCH 28.3, MCHC 33.1, RDW 16.2 H, MPV 7.1 L, Gran % 76.2 H, Lymphocytes % 16.5 L, Monocytes % 6.8, Eosinophils % 0.5, Basophils % 0, Absolute Granulocytes 5.3, Absolute Lymphocytes 1.1 L, Absolute Monocytes 0.5, Absolute Eosinophils 0, Absolute Basophils 0 Assessment/Plan Assessment: Ms. Butts is a 72 y/o F with PMH of COPD, CHF, Parkison's, who came in with c/o dyspnea with hypoxia. She was also found to be hypernatremic in the ED with a CT showing RLL consolidation. Her picture was consitent with acute hypoxemic respiratory failure, which responded to 2L of O2 via nasal cannula; she has a history of COPD though not on O2 at baseline. ASSESSMENT #Aspiration PNA #Electrolyte derangements (Hypernatremia, hypokalemia) #Anemia #H/o COPD, Parkinson's, CHF #Severe protein-calorie malnutrition #Aspiration PNA As evidenced by her CT chest with a failed swallow test. Modifum barium was done , now on thick fluids and puree. swallow test was done. She is off abx, after receiving a 7 day course of unasyn. She has been afebrile, no leukocytosis. Will continue to monitor. -Off abx -Completed 7day of unasyn. #Electrolyte derangements, resolved. Hypernatremia on admission, now resolved. Latest 143. Latest potassium is 4.4. #Anemia Latest 9.1 s/p 1U PRBC. Will continue to monitor. She is also on ferrous sulfate. One guaiac positive stool noted. -F/u H/H # H/o COPD, CHF, Parkinsons: Conditions are chronic and stable, O2 sat is 98% on Room air. No edema or crackles noted on PE. #Severe protein-caloric malnutrition: Latest BMI is 12.7. Nutritional consult recommended 3 ensure/day. FULLCODE DVT PPX ALPS Reg diet: puree, honey Problem List: 1. Aspiration pneumonia 2. Severe malnutrition 3. COPD (chronic obstructive pulmonary disease) Pain Ratin Pain Location: n/a Pain Goal: Remain pain free Pain Plan: as per pathway Tomorrow's Labs & Rationales: Galen Macias MD 06/09/182045: Attending MD Review Statement Attending Statement Attending MD Statement: examined this patient, discuss w/resident/PA/INCOME TAX INVESTIGATOR, agreed w/resident/PA/INCOME TAX INVESTIGATOR, reviewed EMR data (avail), discussed with nursing, discussed with case mgmt, amended to note Attending Assessment/Plan: The patient was seen and discussed with house staff. H/H increased significantly with 1 unit (suggests original H/H slightly falsely low). Awaiting arrangements for home care services and equipment.
[2018-06-09 22:22] VITALS: BP 110/60
--- NOTE | 2018-06-10 06:43 | PN- Housestaff ---
Michael Bradley 06/10/18 0643: Subjective Follow-up For: Aspiration Pneumonia Acute hypoxemic respiratory failure Hypernatremia COPD Parkinson's disease Severe protein-calorie malnutrition Subjective: Pt seen and examined this morning. Patient was awake, eating breakfast. She was breathing comfortably on room air. She was alert, oriented to place and person not to time. She offers no acute complains. Patient's VS remain stable. Review of Systems Constitutional: Reports: see HPI. Objective Last 24 Hrs of Vital Signs/I&O Vital Signs Date Time Temp Pulse Resp B/P B/P Pulse O2 O2 Flow FiO2 Mean Ox Delivery Rate 06/10 0658 98.3 79 20 110/62 96 Room Air 06/09 2222 98.1 78 18 110/60 98 Room Air 06/09 1417 97.4 71 12 132/70 98 Room Air Intake & Output 06/10 1600 06/10 0800 06/10 0000 Intake Total 200 200 Output Total Balance 200 200 Intake, Oral 200 200 Physical Exam General Appearance: Alert, No Acute Distress, oriented to person and place not to time Lungs: Clear to Auscultation, Normal Air Movement Current Medications: Current Medications Sig/Tootie Start time Last Medication Dose Route Stop Time Status Admin Acetaminophen 650 MG Q6P PRN 05/23 0330 AC 06/10 PO 0827 Acetaminophen 1,000 MG Q6P PRN 05/23 0330 AC 06/07 IV 1650 Artificial Tears 2 GTT TID 05/26 1400 AC 06/10 OPH 0828 Ferrous Sulfate 325 MG DAILY 06/08 1334 AC 06/10 PO 0827 Omeprazole 40 MG DAILY AC 06/05 0700 AC 06/10 PO 0522 Polyethylene Glycol 17 GM DAILY 06/07 1029 AC 06/10 PO 0828 Senna/Docusate Sodium 1 TAB BID 06/08 0900 AC 06/10 PO 0827 Assessment/Plan Assessment: Ms. Butts is a 72 y/o F with PMH of COPD, CHF, Parkison's, who came in with c/o dyspnea with hypoxia. She was also found to be hypernatremic in the ED with a CT showing RLL consolidation. Her picture was consitent with acute hypoxemic respiratory failure, which responded to 2L of O2 via nasal cannula; she is off oxygen. She has a history of COPD though not on O2 at baseline. Patient is stable. We are awaiting for home care services and equipment. ASSESSMENT #Aspiration PNA #Electrolyte derangements (Hypernatremia, hypokalemia) #Anemia #H/o COPD, Parkinson's, CHF #Severe protein-calorie malnutrition #Aspiration PNA As evidenced by her CT chest with a failed swallow test, aspiration PNA was suspected. Modifum barium was done, now on thick fluids and puree. She is off abx, after receiving a 7 day course of unasyn. She remains afebrile, no leukocytosis. Will continue to monitor. -Off abx -Completed 7day of unasyn. #Electrolyte derangements, resolved. Hypernatremia on admission, now resolved. Latest 143. Latest potassium is 4.4. #Anemia Will continue to monitor. She is also on ferrous sulfate. One guaiac positive stool noted. -F/u H/H # H/o COPD, CHF, Parkinsons: Conditions are chronic and stable, O2 sat is 98% on Room air. No edema or crackles noted on PE. #Severe protein-caloric malnutrition: Latest BMI is 12.7. Nutritional consult recommended 3 ensure/day. FULLCODE DVT PPX ALPS Reg diet: puree, honey Problem List: 1. Pneumonia 2. COPD (chronic obstructive pulmonary disease) 3. Parkinson disease 4. Severe malnutrition Pain Ratin Pain Location: n/a Pain Goal: Remain pain free Pain Plan: as per pathway Tomorrow's Labs & Rationales: n/a Galen Deras MD 06/10/18 1123: Attending MD Review Statement Attending Statement Attending MD Statement: examined this patient, discuss w/resident/PA/FACILITIES ENGINEER, agreed w/resident/PA/FACILITIES ENGINEER, reviewed EMR data (avail), discussed with nursing, discussed with case mgmt, amended to note Attending Assessment/Plan: The patient was seen and discussed with house staff, nursing, and case management. OK to discharge to home today with services. Will establish care with Dr. Roy as piano tuner. Will require wheelchair with reclining back and paperwork done. Bed delivered to home. Daughter understands risk of aspiration. Still wishes full code and treat.
[2018-06-10 06:58] VITALS: BP 110/62
[2018-06-10 08:17] LABS: ABSOLUTE BASOPHIL COUNT 0 /CUMM (0.0-0.2); ABSOLUTE EOSINOPHIL COUNT 0.1 /CUMM (0.0-0.7); ABSOLUTE GRANULOCYTE CT 4.6 /CUMM (1.4-6.5); ABSOLUTE LYMPH COUNT 1.3 /CUMM (1.2-3.4); ABSOLUTE MONOCYTE COUNT 0.5 /CUMM (0.10-0.60); BASOPHIL % 0.1 % (0.0-2.0); EOSINOPHIL % 1.9 % (0-5); GRANULOCYTE % 70.8 % (42.2-75.2); HEMATOCRIT 25.3 % (37-47); MEAN CORPUSCULAR HGB 28.6 PG (27.0-31.0); MEAN CORPUSCULAR HGB CONC 33.5 G/DL (33.0-37.0); MEAN CORPUSCULAR VOLUME 85.6 FL (81.0-99.0); MEAN PLATELET VOLUME 7.1 FL (7.4-10.4); PLATELET COUNT 590 /CUMM (130-400); RBC DISTRIBUTION WIDTH 16.4 % (11.5-14.5); RED BLOOD CELL CT 2.96 /CUMM (4.20-5.40); WHITE BLOOD CELL COUNT 6.5 /CUMM (4.8-10.8)
--- NOTE | 2018-06-10 14:55 | Discharge Summary ---
Visit Information Visit Dates Admission Date: 05/24/18 Discharge Date: 06/10/18 Hospital Course Course Attending Physician: Galen Deras MD Primary Care Physician: Unknown Hospital Course: Ms. Butts is a 72-year-old cachetic female with PMH of Parkinson's, CHF, COPD that was brought in by ambulance from home hospice for concerns of increased shortness of breath. Most of the information was obtained through the daughter who was present at the time of the interview - patient is minimally verbal at baseline; she has been on hospice since february 2018. Daughter noted loss of appetite, increased SOB and productive cough more noted during eating or drinking for the past days prior to her arrival to the ED. She denied urinary symptoms, fever/chills, abdominal pain/discomfort or changes in bowel movements on initial questioning. O2 sat was initially in the 80s, improving to >90 with 2L O2. Initial workup ruled out pulmonary embolism by CTA and hypernatremia was ordered. She was placed in OBS initially; then transitioned to a full admission for continued management of the following issues which are summarized below: PROBLEM LIST: 1. Acute Delirium 2/2 PNA // Aspiration pneumonia w/ RLL consolidation 2. Hypernatremia 3. Failure to Thrive / Cachexia due to severe protein-caloric malnutrition with a BMI of 11.1 4. Anemia 5. H/O COPD, CHF, Parkinsons/Progressive Supranuclear Palsy 1. Acute delirium 2/2 Aspiration PNA // Aspiration PNA w/RLL Consolidation Pt's mental status was difficult to assess; she is minimally verbal at baseline. However, she did report hearing someone at the door "looking to take her away" on multiple occasions. This acute delirious episode was likely due to her ongoing PNA. D-dimer was done and was noted to be high. Chest CTA did not show evidence of PE but did show RLL consolidation. Due to the patient's c/o increasing cough especially when drinking/eating, aspiration PNA was considered the culprit, posterior evaluation by speech language pathologist demonstrated an aspiration risk after modified barium swallow test. She received and completed 7 day course of unasyn. The patient remained afebrile with no noted leukocytosis throughout the whole admission. Urine culture and blood culture 2/2 showed no bacterial growth. 2. Hypernatremia Noted on admission 155 - free water deficit was calculated. Correction goal <6-8 /24 Hrs. Complete resolution achieved over the course of the following 3 days. Latest was 143 on 06/08. 3. Failure to Thrive / Cachexia due to severe protein-caloric malnutrition with BMI of 11.1 Palliative care was consulted to initiate goals of care discussion, disposition and symptom management. At that point, patient's daughter was adamant about the placement of a PEG tube - though this was ultimately not done as it would not improve her quality of life. She remained full code. Lengthy, multiple conversations with economic specialist, medical team and family were had. Nutritional consult was placed, ensure pudding TID started with subsequent improvement. Latest BMI recorded was 12.7 kg/m2. 6.Anemia Hemoglobin was trended. Chronic or acute unclear as her baseline is unknown. 11.6 on admission, dropping as low as 6.3 (this was likely a false reading). Guaic positive stool was noted, no other souce of massive bleeding. Likely related to her poor nutritional status as well. She was transfused 1U PRBC. Latest Hb was 9.1 and she was started on ferrous sulfate. 5. H/O COPD, CHF, Parkinsons/Progressive Supranuclear Palsy Her chronic conditions remained stable. She was on 2L of O2 on admission that was weaned to 1.0L then weaned off completely. She was breathing comfortably on room air for the remainder of her admission. On admission, patient's PMH by daughter mentioned Parkinson - she did display classic symptoms of parkinsonism. Daughter then later mentioned the condition was progressive supranuclear palsy as opposed to Parksinson's disease. The exact diagnosis is unclear as a neurological evaluation of these two similar conditions was not conducted. CODE STATUS: Full code She was on a regular diet with thickened food and honey-consistency liquids. She had mechanical anticoagulation. Allergies: Coded Allergies: nitrofurantoin (From MACROBID) (NAUSEA 05/23/18) Significant Procedures: SERVICE DATE: 05/28/18 EXAM TYPE: RAD - XRY-MODIFIED BARIUM SWALLOW EXAMINATION: XR MODIFIED BARIUM SWALLOW CLINICAL INFORMATION: Aspiration pneumonia. COMPARISON: CTA of the chest dated 05/22/2018. TECHNIQUE: A modified barium swallow was performed with speech pathologist in attendance. Pur?e, honey thick, and nectar thick consistencies were given to the patient and the swallowing mechanism was observed fluoroscopically with several spot films taken using the last image hold feature. FLUOROSCOPY TIME: 2 minutes 14 seconds. FINDINGS: With all consistencies, the oropharyngeal phase of swallowing is delayed with slow posterior oral bolus propagation and premature spillage of contrast into the valleculae. No aspiration or penetration is seen. With honey and nectar consistency, premature spillage of the contrast into the piriform sinuses is seen. With all consistencies, slight pooling of contrast in the valleculae is seen with complete clearing upon swallowing. There is no laryngeal or nasopharyngeal aspiration seen. IMPRESSION: 1. Delayed oral bolus propagation to the pharynx. 2. Premature spillage of contrast into the valleculae and with honey and nectar consistency premature spillage of contrast into the piriform sinuses. 3. No aspiration or penetration. Speech pathologist assessment issued separately. DICTATED BY: Megan Casas MD DATE/TIME DICTATED:05/28/181035 STONEMASON:PHILOMENA DATE/TIME TRANSCRIBED:05/28/181035 CONFIDENTIAL, DO NOT COPY WITHOUT APPROPRIATE AUTHORIZATION. <Electronically signed in Other Vendor System> SIGNED BY: Megan Casas MD [id number] SERVICE DATE: 05/22/18 EXAM TYPE: CAT - CTA CHEST-PULMONARY EMBOLISM EXAMINATION: CT ANGIOGRAM OF THE CHEST WITH AND WITHOUT CONTRAST (CT PULMONARY ANGIOGRAM FOR PE) CLINICAL INFORMATION: Hypoxia. Elevated d-dimer. COMPARISON: None TECHNIQUE: Prior to contrast administration, noncontrast localization images were obtained. Subsequently, multidetector volumetric imaging was performed from the thoracic inlet to below the diaphragms following the administration of 95 mL Optiray 320 intravenous contrast. No contrast reaction reported. Sagittal, coronal, and MIP oblique sagittal reformatted images were obtained on the CT workstation, uploaded to PACS, and reviewed. Total exam dose-length product 120 mGy-cm. FINDINGS: QUALITY OF STUDY/CONTRAST BOLUS: Satisfactory PULMONARY ARTERIES: No central or segmental pulmonary emboli. THORACIC AORTA: No aneurysm or dissection. Mild atherosclerotic calcifications. LUNG: The central airways demonstrate minimal internal secretions but otherwise are patent. There are filling defects within multiple distal bronchi, particularly in the lower lobes. Mild centrilobular and paraseptal emphysema. Bronchial wall thickening noted with scattered diffuse groundglass opacities. These are greatest in both lower lobes with minimal dependent consolidation in the right lower lobe as well. PLEURA: No pleural effusion or pneumothorax. MEDIASTINUM: Normal heart size. No pericardial effusion. No hilar or mediastinal lymphadenopathy. No evidence of septal bowing or right heart strain. CHEST WALL/AXILLA: No axillary or internal mammary lymphadenopathy. OSSEOUS STRUCTURES: No acute or suspicious osseous abnormality. Mild scoliotic curvature of the spine with multilevel degenerative changes. UPPER ABDOMEN: Lack of intra-abdominal fat limits evaluation with no gross abnormality visualized. No reflux of contrast into the hepatic veins to suggest elevated right heart pressures. IMPRESSION: 1. No pulmonary embolism. 2. Mild emphysema. 3. Diffuse groundglass opacities with a basilar predominance. More focal consolidation dependently in the right lower lobe. Areas of bronchial wall thickening with bronchial filling defects are also noted. The appearance favors pneumonia. VTE: negative DICTATED BY: Tye Jimenez MD DATE/TIME DICTATED:05/22/182333 STONEMASON:PHILOMENA DATE/TIME TRANSCRIBED:05/22/182333 CONFIDENTIAL, DO NOT COPY WITHOUT APPROPRIATE AUTHORIZATION. <Electronically signed in Other Vendor System> SIGNED BY: Tye Jimenez MD 05/22 8789 Discharge Instructions Medications at Discharge Discharge Medications: Start taking the following new medications: Ferrous Sulfate (Ferrous Sulfate) 325 MG (65 MG IRON) TABLET.DR 325 Milligram ORAL DAILY Qty = 60 No Refills Instructions: Please take as directed. Comments: Last Taken: 06/10/18 Time: 8:37 AM Docusate Sodium (Colace) 100 MG CAPSULE 1 Capsule ORAL TWICE DAILY as needed for CONSTIPATION Qty = 30 No Refills Instructions: Please take as directed. Comments: NOT GIVEN IN HOSPITAL Polyethylene Glycol 3350 (Miralax) 17 GRAM/DOSE POWDER 17 Gram ORAL DAILY as needed for CONSTIPATION Qty = 30 No Refills Instructions: Please take as directed. Comments: Last Taken: 06/10/18 Time: 8:27 AM Sennosides (Senna) 8.6 MG TABLET 2 Tablet ORAL DAILY as needed for CONSTIPATION Qty = 60 No Refills Instructions: Please take as directed. Comments: Last Taken: 06/10/18 Time: 8:27 AM Starch (Thick-It) 1 EACH POWD.PACK 1 Packet ORAL WITH MEALS Qty = 120 Refills = 3 Instructions: Mix with liquids.
[2018-06-10] MEDS ORDERED: SENNA8.6 M3 PO ×2 (15:32→15:54)
[2018-06-10] MEDS ORDERED: MIRALAX119 GM PO ×2 (15:32→15:54)
[2018-06-10] MEDS ORDERED: FERROUS SULFAT325 M2 PO ×2 (15:32→15:54)
[2018-06-10] MEDS ORDERED: COLACE100 M1 PO ×2 (15:32→15:54)
[2018-06-10] MEDS ORDERED: THICK-IT1 EACH PO ×2 (15:34→15:54)
[2018-06-10 15:38] VITALS: BP 100/65
--- NOTE | 2018-06-10 15:41 | Patient Discharge Instructions ---
Discharge Instructions General Discharge Information You were seen/treated for: Aspiration Pneumonia COPD You had these procedures: Barium Swallow Special Instructions: Please follow up with your PCP within 1 week of discharge. Please use Thick-It packet with every liquid meal. Acute Coronary Syndrome Inclusion Criteria At DC or during hospital stay patient has or had the following: Discharge Core Measures Meds if any: Prescribed or Continued at Discharge Meds if any: NOT Prescribed or Continued at Discharge Congestive Heart Failure Inclusion Criteria At DC or during hospital stay patient has or had the following: Discharge Core Measures Meds if any: Prescribed or Continued at Discharge Meds if any: NOT Prescribed or Continued at Discharge Cerebrovascular accident Inclusion Criteria At DC or during hospital stay patient has or had the following: CVA/TIA Diagnosis No Discharge Core Measures Meds if any: Prescribed or Continued at Discharge Meds if any: NOT Prescribed or Continued at Discharge Venous thromboembolism Discharge Core Measures - Per Current guidelines, there needs to be overlap - treatment for the first 5 days of Warfarin therapy. - If discharged on Warfarin prior to 5 days of - overlap therapy, the patient will need to be - assessed for post discharge needs including - *Post discharge parental anticoagulation - *Warfarin and/or parental anticoagulation education - *Follow up date to check INR post discharge Meds if any: Prescribed or Continued at Discharge Note: Overlap Therapy is Warfarin and Anticoagulant Meds if any: NOT Prescribed or Continued at Discharge
== END 2018-06-10 19:15 | disposition home health service (06) | DRG 177 ==
LOC: ERH 19:40 → ERHI 05-23 00:02 → ENRESERV 05-23 00:33 → 2NA 05-23 01:50
PROVIDERS: Internal Medicine; Physician Assistant; Student in an Organized Health Care Education/Training Program
PROC: 30233N1 Transfusion of Nonautologous Red Blood Cells into Peripheral Vein, Percutaneous Approach (ICD-10-PCS; principal; 2018-06-08)
DX: J69.0 Pneumonitis due to inhalation of food and vomit (principal); E43 Unspecified severe protein-calorie malnutrition; J96.01 Acute respiratory failure with hypoxia; E87.0 Hyperosmolality and hypernatremia; R64 Cachexia; F05 Delirium due to known physiological condition; F03.91 Unspecified dementia, unspecified severity, with behavioral disturbance; Z68.1 Body mass index [BMI] 19.9 or less, adult; G23.1 Progressive supranuclear ophthalmoplegia [Steele-Richardson-Olszewski]; Z51.5 Encounter for palliative care; G20 Parkinson's disease; J44.9 Chronic obstructive pulmonary disease, unspecified; E86.0 Dehydration; E87.5 Hyperkalemia; E87.6 Hypokalemia; R62.7 Adult failure to thrive; I50.9 Heart failure, unspecified; R19.5 Other fecal abnormalities; D64.9 Anemia, unspecified; L89.152 Pressure ulcer of sacral region, stage 2; Z88.8 Allergy status to other drugs, medicaments and biological substances; Z87.891 Personal history of nicotine dependence; W18.30XA Fall on same level, unspecified, initial encounter; Y93.9 Activity, unspecified; Y92.032 Bedroom in apartment as the place of occurrence of the external cause
CPT/HCPCS: 2NASP; 84133; 84300; 36415; 36592; 74230; 81001; 82436; 82570; 86920; 87040; 87086; 93005; 93010; 96361; 96374; 99291; J0131; J0456; J0696; J1644; J3250; J7040; J7042; J7060; P9016

== ENCOUNTER 2018-06-23 15:34 | Inpatient (IN) | payer OTHER ==
[~2018-06-23] VITALS: Ht 149.9 cm; Wt 30.2 kg
[~2018-06-23 15:34] MED LIST: ALBUTEROL2.5 MG/3 M INH/SOL; BUDESONIDE0.5 MG/21 INH/SOL; COLACE100 M1 PO; FERROUS SULFAT325 M2 PO; MIRALAX119 GM PO; NATURAL BALANCE15 M1 OU; NORVASC5 M1 PO; PAIN & FEVER325 M1 PO; SENNA8.6 M3 PO; THICK-IT1 EACH PO
--- NOTE | 2018-06-23 15:58 | ED GENERAL ADULT ---
History of Present Illness General Chief Complaint: Dyspnea (COPD, CHF, Other) Stated Complaint: SENT BY PROVIDER FOR CXR,COUGH, FEVER, HYPOXIA Source: patient Exam Limitations: no limitations Vital Signs & Intake/Output Vital Signs & Intake/Output Vital Signs Date Time Temp Pulse Resp B/P B/P Pulse O2 O2 Flow FiO2 Mean Ox Delivery Rate 06/23 1855 98.9 78 16 156/80 99 Room Air 06/23 1845 99.7 06/23 1749 98 Room Air 06/23 1542 100.6 101 20 133/93 98 Room Air Allergies Coded Allergies: aspirin (GI BLEED 06/18/18) nitrofurantoin (From MACROBID) (NAUSEA 05/23/18) Reconcile Medications Acetaminophen (Pain & Fever) 325 MG TABLET 2 TAB PO PRN PAIN (Reported) Albuterol Sulfate (Unknown Strength) VIAL.NEB (Unknown Dose) INH/LISA PRN RESP. (Reported) Amlodipine Besylate (Norvasc) 5 MG TABLET 1 TAB PO DAILY HTN Budesonide (Unknown Strength) AMPUL.NEB (Unknown Dose) INH/LISA PRN RESP. ( Reported) Dextran 70/Hypromellose (Natural Balance Tears Eye Drop) (Unknown Strength) DROPS (Unknown Dose) OU PRN DRY EYES (Reported) Docusate Sodium (Colace) 100 MG CAPSULE 1 CAP PO BID PRN CONSTIPATION Please take as directed. Ferrous Sulfate 325 MG (65 MG IRON) TABLET.DR 325 MG PO DAILY anemia Please take as directed. Polyethylene Glycol 3350 (Miralax) 17 GRAM/DOSE POWDER 17 GM PO DAILY PRN CONSTIPATION Please take as directed. Sennosides (Senna) 8.6 MG TABLET 2 TAB PO DAILY PRN CONSTIPATION Please take as directed. Starch (Thick-It) 1 EACH POWD.PACK 1 PAC PO WITH MEALS Aspiration Risk Mix with liquids. Triage Note: RECEIVED 72 YO FEMALE WITH HX OF PROGRESSIVE SUPER NUCLEAR PALSY AND DEMENTIA, SENT TO ED BY KATTY RAMAN FOR CXR. ACCORDING TO REPORT, PT HAS HAS AN OCCASIONAL COUGH WITH LOW GRADE FEVERS. O2 SATS BY EMS WAS 88-90%. PT WAS PLACED ON 4L O2 VIA N/C, O2 SATS 99%. Triage Nurses Notes Reviewed? yes HPI: This is a 72-year-old female with history of Parkinson's, dementia, progressive supranuclear palsy complicated by aspiration pneumonia and recent admission for to the emergency department with hypoxia, fever, shortness of breath, cough which is been progressive for the last few days. She was seen by PMD today and told to come to the emergency department. Upon arrival, she is mildly tachycardic and febrile, maintaining her blood pressure. She denies any pain but does endorse mild shortness of breath and cough. She arrives with her daughter, who is her primary land surveyor assistant at home. No chest pain, abdominal pain, dysuria, frequency. Patient denies any headache or neck pain. There is been no altered mental status. According to EMS personnel, the patient was satting in the high 80s at home. She was started on submental oxygen and improved significantly. Here, she is not hypoxic on room air. Past History Travel History Traveled to [place] past 21 day No Medical History Any Pertinent Medical History? see below for history Neurological: dementia, Parkinson's disease, Prog. 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 No Review of Systems Review of Systems Constitutional: Reports: fever, malaise, weakness. Respiratory: Reports: cough, short of breath. Cardiovascular: Reports: no symptoms. GI: Reports: no symptoms. Musculoskeletal: Reports: no symptoms. Skin: Reports: no symptoms. Neurological/Psychological: Reports: no symptoms. Hematologic/Endocrine: Reports: no symptoms. Immunologic/Allergic: Reports: no symptoms. Physical Exam Physical Exam General Appearance: well developed/nourished, no apparent distress, alert, awake Head: atraumatic, normal appearance Eyes: Bilateral: normal appearance, PERRL, EOMI. Ears, Nose, Throat: normal pharynx, normal ENT inspection Neck: normal inspection, supple, full range of motion Comments: Breath sounds diminished bilateral bases. Abdomen benign, nondistended, nontender. Patient cachectic. She is oriented 3. She is able move all extremities. No obvious skin breakdown noted. Core Measures ACS in differential dx? No CVA/TIA Diagnosis: No Sepsis Present: Yes Sepsis Focused Exam Completed? Yes Progress Differential Diagnoses I considered the following diagnoses in my evaluation of the patient: Sepsis of unclear etiology, most likely pneumonia. 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 Some concern also for UTI. Low suspicion for intra-abdominal process otherwise given lack of tenderness or other suggestive features. Could be viral illness. Low suspicion for metabolic derangement or ACS. Low suspicion also for pulmonary embolism. Plan of Care: Orders Procedure Date/time Status Regular Diet 06/24 B Active CBC WITHOUT DIFFERENTIAL 06/24 600 Active BASIC ELECTROLYTES PLUS BUN&CR 06/24 600 Active SWALLOW EVALUATION 06/23 2136 Active TRC EVALUATION (GEN) 06/23 2136 Active OXYGEN SETUP (GEN) 06/23 2136 Active Saline Lock 06/23 2136 Active Pathway - chart 06/23 2136 Active House Staff 06/23 2136 Active PHYSICIAN CONSULT 06/23 2136 Active Code Status 06/23 2136 Active Turn and Reposition 06/23 2037 Active Skin Integrity Protocol 06/23 2037 Active Skin/Pressure Ulcer Assess (Sk 06/23 2037 Active Weight 06/23 1947 Active Vital Signs 06/23 1947 Active Teach/Educate 06/23 1947 Active Pain Treatment and Response 06/23 1947 Active Nutritional Intake, Monitor 06/23 1947 Active Isolation 06/23 1947 Active Intake & Output 06/23 1947 Active Patient Care Conference 06/23 1947 Active Activity/Ambulation 06/23 1947 Active LACTIC ACID 06/23 1849 Complete Patient Data 06/23 1754 Active Admit to inpatient 06/23 1747 Active Vital Signs 06/23 1747 Complete Code Status 06/23 1747 Complete EKG 06/23 1723 Active Intake & Output 06/23 1653 Complete Straight Cath 06/23 1549 Complete CULTURE,URINE 06/23 1549 Active BLOOD CULTURE 06/23 1549 Active URINALYSIS 06/23 1549 Complete LACTIC ACID 06/23 1549 Complete COMPREHENSIVE METABOLIC PANEL 06/23 1549 Complete CBC WITHOUT DIFFERENTIAL 06/23 1549 Complete VTE Mechanical Prophylaxis 06/23 UNK Active Vital Signs 06/23 UNK Active Precautions 06/23 UNK Active Intake & Output 06/23 UNK Active Hemoccult 06/23 UNK Active Activity/Ambulation 06/23 UNK Complete Current Medications Sig/Tootie Start time Last Medication Dose Stop Time Status Admin Amlodipine Besylate 5 MG DAILY 06/24 900 AC (Norvasc) Ferrous Sulfate 325 MG DAILY 06/24 900 AC (Feosol) Polyethylene Glycol 17 GM AT BEDTIME PRN 06/23 2145 AC (Miralax) Senna/Docusate Sodium 1 TAB AT BEDTIME PRN 06/23 2145 AC (Senokot S) Artificial Tears 2 GTT TID 06/23 2139 AC (Tears Natural) Acetaminophen 650 MG Q6P PRN 06/23 2130 AC (Tylenol) Acetaminophen 1,000 MG Q6P PRN 06/23 2130 AC (Ofirmev) Dextrose/Sodium 1,000 ML .[id number] 06/23 2130 AC 06/23 Chloride 2151 (D5W-1/2 Normal Saline 1000ML) Acetaminophen 650 MG ONCE ONE 06/23 1615 CAN (Tylenol) 06/23 161 Laboratory Tests 06/23/18 1830: Lactic Acid 0.9 06/23/18 1729: Urine Color YEL, Urine Clarity HAZY H, Urine pH 6.5, Ur Specific [place] 1.020, Urine Protein NEG, Urine Ketones NEG, Urine Nitrite NEG, Urine Bilirubin NEG, Urine Urobilinogen 0.2, Ur Leukocyte Esterase LARGE H, Ur Microscopic SEDIMENT EXAMINED, Urine RBC 1-3, Urine WBC 50-75 H, Ur Epithelial Cells RARE, Urine Bacteria MANY H, Urine Hemoglobin TRACE-INTACT, Urine Glucose NEG 06/23/18 1630: Anion Gap 10, Estimated GFR > 60, BUN/Creatinine Ratio 20.0, Glucose 123 H, Lactic Acid 2.5 H, Calcium 9.8, Total Bilirubin 0.3, AST 23, ALT 15, Alkaline Phosphatase 56, Total Protein 7.5, Albumin 3.9, Globulin 3.6, Albumin/Globulin Ratio 1.1, CBC w Diff NO MAN DIFF REQ, RBC 3.62 L, MCV 89.7, MCH 29.6, MCHC 32.9 L, RDW 21.8 H, MPV 7.1 L, Gran % 82.9 H, Lymphocytes % 10.5 L, Monocytes % 6.3, Eosinophils % 0.1, Basophils % 0.2, Absolute Granulocytes 10.2 H, Absolute Lymphocytes 1.3, Absolute Monocytes 0.8 H, Absolute Eosinophils 0, Absolute Basophils 0 Microbiology 09/11 1729 URINE ROUT: Urine Culture - RECD 06/23 1630 BLOOD: Blood Culture - RECD 06/23 1625 BLOOD: Blood Culture - RECD Leukocytosis noted, thrombocytosis also noted. Mild anemia noted. Lactate elevated to 2.5. Chest film is nondiagnostic. Initial ED EKG: normal axis, normal intervals, normal p-waves, normal QRS complex Departure Departure Time of Disposition: 1744 Disposition: STILL A PATIENT Condition: Stable Clinical Impression Primary Impression: HCAP (healthcare-associated pneumonia) Referrals: Unknown (PCP/Family) Departure Forms: Customer Survey General Discharge Information Admission Note Spoke With: Mirella HANSON,Mandi Mcrae Documentation of Exam: Documentation of any treatments & extenuating circumstances including Concerns Regarding Discharge (functional status, medication knowledge or non-compliance, living conditions, etc.) that warrant an admission rather than observation: IV antibiotics, swallow evaluation, physical therapy, frequent reassessment. Critical Care Note Critical Care Note Critical Care Time: non-applicable
--- NOTE | 2018-06-23 16:22 | RADIOLOGY REPORT ---
EXAMINATION: XR CHEST CLINICAL INFORMATION: Shortness of breath, fever. COMPARISON: Chest radiograph 06/18/2018 TECHNIQUE: 2 views of the chest were obtained. FINDINGS: The cardiomediastinal silhouette is unremarkable. Limited evaluation of the left lung base due to the patient's overlying hand. No clear consolidation. No pleural effusion or pneumothorax appreciated. Scoliotic curvature of the thoracic spine. IMPRESSION: Limited exam due to patient positioning. No clear acute cardiopulmonary process.
[2018-06-23 16:48] LABS: ABSOLUTE BASOPHIL COUNT 0 /CUMM (0.0-0.2); ABSOLUTE EOSINOPHIL COUNT 0 /CUMM (0.0-0.7); ABSOLUTE GRANULOCYTE CT 10.2 /CUMM (1.4-6.5); ABSOLUTE LYMPH COUNT 1.3 /CUMM (1.2-3.4); ABSOLUTE MONOCYTE COUNT 0.8 /CUMM (0.10-0.60); BASOPHIL % 0.2 % (0.0-2.0); EOSINOPHIL % 0.1 % (0-5); GRANULOCYTE % 82.9 % (42.2-75.2); MEAN CORPUSCULAR HGB 29.6 PG (27.0-31.0); MEAN CORPUSCULAR HGB CONC 32.9 G/DL (33.0-37.0); MEAN CORPUSCULAR VOLUME 89.7 FL (81.0-99.0); MEAN PLATELET VOLUME 7.1 FL (7.4-10.4); PLATELET COUNT 552 /CUMM (130-400); RBC DISTRIBUTION WIDTH 21.8 % (11.5-14.5)
[2018-06-23 16:50] LABS: HEMATOCRIT 32.5 % (37-47); RED BLOOD CELL CT 3.62 /CUMM (4.20-5.40); WHITE BLOOD CELL COUNT 12.3 /CUMM (4.8-10.8)
--- NOTE | 2018-06-23 18:13 | History & Physical ---
Luis Velez 06/23/181811: General Information and HPI MD Statement: I have seen and personally examined RAUL SAMSON and documented this H&P. The patient is a 72 year old F who presented with a patient stated chief complaint of []. Source of Information: patient, family, old records, EMS, police Exam Limitations: unable to give history, not alert/orientated History of Present Illness: Ptient is a 72 year old female with a PMH of Parkinson's disease versus supranuclear palsy with dementia, COPD, urinary and bowel incontinence, was brought in for increased drowsiness and fever. Patient was discharged from [facility] last month for aspiration pneumonia, following which she was on pureed food after failing swallow study.Patient was apparently doing alright, had been concious and taking feeds normally and had a good appetite. SHe asked fpr fried chicekn and icecream 2 days ago , which was given to her in pureed form following whcih the patient had stomach symptoms , abdominal pain. Patient did not vomit or have any diarrhoes. However she developed cough following that episode. she does not produce any sputum, but developed fever this morning about 99.6, following which she was taken to see her new PCP Dr. Carola Grossman and was sent into ER for increased drowsiness this am. AT the ER the patient has been excessively drowsy but arousable and is answering certain questions only. She is alert to place and time and person. However continues to be exhausted. Allergies/Medications Allergies: Coded Allergies: aspirin (GI BLEED 06/18/18) nitrofurantoin (From MACROBID) (NAUSEA 05/23/18) Home Med list Acetaminophen (Pain & Fever) 325 MG TABLET 2 TAB PO PRN PAIN (Reported) Albuterol Sulfate (Unknown Strength) VIAL.NEB (Unknown Dose) INH/LISA PRN RESP. (Reported) Amlodipine Besylate (Norvasc) 5 MG TABLET 1 TAB PO DAILY HTN Budesonide (Unknown Strength) AMPUL.NEB (Unknown Dose) INH/LISA PRN RESP. ( Reported) Dextran 70/Hypromellose (Natural Balance Tears Eye Drop) (Unknown Strength) DROPS (Unknown Dose) OU PRN DRY EYES (Reported) Docusate Sodium (Colace) 100 MG CAPSULE 1 CAP PO BID PRN CONSTIPATION Please take as directed. Ferrous Sulfate 325 MG (65 MG IRON) TABLET. 325 MG PO DAILY anemia Please take as directed. Polyethylene Glycol 3350 (Miralax) 17 GRAM/DOSE POWDER 17 GM PO DAILY PRN CONSTIPATION Please take as directed. Sennosides (Senna) 8.6 MG TABLET 2 TAB PO DAILY PRN CONSTIPATION Please take as directed. Starch (Thick-It) 1 EACH POWD.PACK 1 PAC PO WITH MEALS Aspiration Risk Mix with liquids. Past History Travel History Traveled to [place] past 21 day No Medical History Neurological: dementia, Parkinson's disease, Prog. Super Nuc Palsy EENT: NONE Cardiovascular: CHF Respiratory: COPD Gastrointestinal: NONE Hepatic: NONE Renal: urinary incontinence Musculoskeletal: NONE Psychiatric: NONE Endocrine: NONE Blood Disorders: NONE Cancer(s): NONE ASSESSMENT DIRECTOR/Reproductive: NONE History of MRSA: No History of VRE: No History of CDIFF: No Surgical History Surgical History: non-contributory Past Family/Social History Psychosocial History Living Will? unknown Power of Service Manager/HCP? unknown Functional Ability ADLs Needs Assist: dressing, eating, toileting, bathing. Ambulation: non-ambulatory IADLs Needs Assist: shopping, housework, finances, food prep, telephone, transportation, medication admin. Review of Systems Review of Systems Constitutional: Reports: fever, malaise, weakness. Denies: diaphoresis. Cardiovascular: Denies: chest pain, edema, orthopena, palpitations, peripheral edema. Respiratory: Reports: cough, short of breath. Denies: hemoptysis, orthopnea, sputum production. GI: Reports: bowel incontinence. Denies: abdominal pain, bloating, constipation, diarrhea, distention. Genitourinary: Denies: discharge, frequency, pain. Musculoskeletal: Denies: back pain, gout, joint pain, joint swelling, muscle pain, muscle stiffness, neck pain. Exam & Diagnostic Data Last 24 Hrs of Vital Signs/I&O Vital Signs Date Time Temp Pulse Resp B/P B/P Pulse O2 O2 Flow FiO2 Mean Ox Delivery Rate 06/23 1855 98.9 78 16 156/80 99 Room Air 06/23 1845 99.7 06/23 1749 98 Room Air 06/23 1542 100.6 101 20 133/93 98 Room Air Intake & Output 06/23 1600 06/23 0800 06/23 0000 Intake Total Output Total Balance Patient 74 lb 15.98 oz Weight Weight Reported by Patient Measurement Method Physical Exam General Appearance Oriented X3, patient is drowsy Cardiovascular Regular Rate, No Murmurs Lungs Clear to Auscultation, Normal Air Movement Abdomen Normal Bowel Sounds, Soft, No Tenderness, No Hepatospenomegaly, No Masses Extremities No Clubbing, No Cyanosis, No Edema, Normal Pulses, No Tenderness/ Swelling Last 24 Hrs of Labs/Hermes: Laboratory Tests 06/23/18 1830: Lactic Acid 0.9 06/23/18 172: Urine Color YEL, Urine Clarity HAZY H, Urine pH 6.5, Ur Specific [place] 1.020, Urine Protein NEG, Urine Ketones NEG, Urine Nitrite NEG, Urine Bilirubin NEG, Urine Urobilinogen 0.2, Ur Leukocyte Esterase LARGE H, Ur Microscopic SEDIMENT EXAMINED, Urine RBC 1-3, Urine WBC 50-75 H, Ur Epithelial Cells RARE, Urine Bacteria MANY H, Urine Hemoglobin TRACE-INTACT, Urine Glucose NEG 06/23/18 1630: Anion Gap 10, Estimated GFR > 60, BUN/Creatinine Ratio 20.0, Glucose 123 H, Lactic Acid 2.5 H, Calcium 9.8, Total Bilirubin 0.3, AST 23, ALT 15, Alkaline Phosphatase 56, Total Protein 7.5, Albumin 3.9, Globulin 3.6, Albumin/Globulin Ratio 1.1, CBC w Diff NO MAN DIFF REQ, RBC 3.62 L, MCV 89.7, MCH 29.6, MCHC 32.9 L, RDW 21.8 H, MPV 7.1 L, Gran % 82.9 H, Lymphocytes % 10.5 L, Monocytes % 6.3, Eosinophils % 0.1, Basophils % 0.2, Absolute Granulocytes 10.2 H, Absolute Lymphocytes 1.3, Absolute Monocytes 0.8 H, Absolute Eosinophils 0, Absolute Basophils 0 Microbiology 06/23 1729 URINE ROUT: Urine Culture - RECD 06/23 1630 BLOOD: Blood Culture - RECD 06/23 1625 BLOOD: Blood Culture - RECD Assessment/Plan Assessment: This is a 72-year-old female with history of Parkinson's, dementia, progressive supranuclear palsy complicated by aspiration pneumonia and recent admission for to the emergency department with hypoxia, fever, shortness of breath, cough which is been progressive for the last few days. She was seen by her PCP today and sent to ER again. Vitals- temp 98.9, PR_ 78, RR-16. BP-156/80, Pulse ox- 99% RA CBC- wbc- 12.3, RBC- 3.62, Hb- 10.7 BEP- na, K -nad; Cr- 0.5 LActic acid - 2.5 Urine- Leukocyte esterase + CXR-Limited exam due to patient positioning. No clear acute cardiopulmonary process. A/p- 1. Fever with ? Pneumonia 2/2 Aspiration 2. Decubitous ulcer 3. Failure to thrive Patient has leukocytosis, elevated lactic acid, - Patient receievd iv vancomycin in the ER , changed to IV Unasyn , - lactic acid trending low - F/u bood cx, - hydrate the patient- 75cc/hr D5 in 10/14 NS - wound management to be consulted in the am - Poor overall prognosis given her comorbidities. to discuss Hopsice care with daughter in the am. - amlodipine f/u CBC, Bep in am. code status- Full code DVT prohylaxis - pending As Ranked By This Provider Problem List: 1. HCAP (healthcare-associated pneumonia) 2. Parkinson disease 3. Pneumonia 4. Severe malnutrition Core Measures/Misc (06/29) Acute Coronary Syndrome ACS Diagnosis: No Congestive Heart Failure Congestive Heart Failure Diagnosis No Cerebrovascular Accident CVA/TIA Diagnosis: No VTE (View Protocol) VTE Risk Factors Immobility No Mechanical VTE Prophylaxis d/t Other No VTE Pharm Prophylaxis d/t Other Sepsis (View protocol) Sepsis Present: No If YES complete Sepsis Event Note If YES complete Sepsis Event Note James Clifton MD 06/23/18 2018: Core Measures/Misc (06/29) Sepsis (View protocol) If YES complete Sepsis Event Note If YES complete Sepsis Event Note Attending MD Review Statement Attending Statement Attending MD Statement: examined this patient, discuss w/resident/PA/FRETTED INSTRUMENT INSPECTOR, agreed w/resident/PA/FRETTED INSTRUMENT INSPECTOR, discussed with family, reviewed EMR data (avail), discussed with nursing, amended to note Attending Assessment/Plan: Patient is a 72-year-old female with history of Parkinson's disease versus supranuclear palsy with dementia. Apparently she has been residents of her inpatient hospice facility for several months prior to the daughter removing her from that facility stating she no longer wanted her mother to be on hospice. Following that she was admitted to [facility] last month from May 24 - June 10. She was managed for aspiration pneumonia. She failed a swallow evaluation at that time. palliative care consultation was placed howeve daughter desire to proceed with medical management. Daughter initially requested PEG feeding however per the hospice service no added benefit from patient undergoing this procedure. She was discharged home just over a week ago. Following discharge she had presented to the emergency room just last week with Uncontrolled hypertension. She received medical therapy and was discharged home. Mother reports that patient has been declining over the past few days. She reports increased coughing with meals and states that she has to stop her meals frequently because of this. She saw her primary care provider for routine follow-up today when she was noted to be febrile I was sent to the emergency room for evaluation. She arrived here hemodynamically stable but febrile. Laboratory data revealed leukocytosis. Chest x-ray was obtained was limited due to positioning and revealed no clear acute pulmonary process however due to her history of symptoms she was empirically started on antibiotic therapy for presumed pneumonia. The emergency room medicate her with vancomycin and ceftaz. She was referred to medical service for further management. On Examination patient is a markedly cachectic female. She is not in any obvious respiratory distress although she does have an audible productive cough. She is extremely lethargic but answers simple questions from her daughter. She has no jugular venous distention. Heart sounds are regular. Very diminished breath sounds bilaterally. Unable to adequately assess breath sounds posteriorly. Abdomen is soft and nontender. It is scaphoid. She has no peripheral edema. She has significant muscle wasting globally. Daughter reports that patient has coccygeal ulcer present since last hospitalization. Problems: 1. Fever; possibly due to aspiration. 2. Failure to thrive 3. Decubitus ulcer. Plan: -Admit to inpatient medical service. -Antibiotic therapy for possible aspiration pneumonia with IV Unasyn. Follow blood cultures. Trend lactic acid level. -Patient determined to be aspirating on previous swallow evaluation. No benefit to repeating the study at this time. Per recommendations of the palliative care service there is no benefit from PEG tube feeding at this point for this patient. Maintain aspiration precautions at all times. -Hydrate with D5 half NS at 75 cc an hour. -Consultation for management of her decubitus ulcer. -Poor overall prognosis given her comorbidities. Medical team did reengage the patient's daughter again regarding hospice care. She appears to be changing her mind. Recommend follow-up discussions prior to discharge. Bam Alba MD 06/23/18 2107: Core Measures/Misc (06/29) Sepsis (View protocol) If YES complete Sepsis Event Note If YES complete Sepsis Event Note Resident Review Statement Resident Statement: examined this patient, discussed with manager internal, agreed with manager internal, discussed with family, reviewed EMR data (avail) Other Findings: Patient is a 72 y/o female with PMH of Parkinson's dementia, progressive supranuclear palsy, CHF, COPD with most recent admission from 05/24 to 06/10 for AMS, aspiration pneumonia and failure to thrive now sent in after seeing her primary care physician. Patient's daughter was at bedside and provided much of the history. Reports that patient over the past 2 days has been having a cough. Reports patient had a fever of 99.6 thi morning and whn they saw patient's primay physician and after listening to her lungs was instructed to come into the ED for further evaluation. Daughter reports patient has been more lethargic and has been sleeping most of the day. Reports that prior to this, since her discharge on patient has been doing well. Reports she previously had a good appetite with no change in her bowel or bladder habits. Reports patient has urinary incontinence. Notes patient was having regular nonbloody bowel movements with last one on two days prior to admission. Daughter reports patient has a nonhealing decubitus ulcer. Limited history from patient obtained as she was drowsy but arousable. Patient denied any pain or complaints at time of interveiw. Patient in the ED received NS bolus x 2, Vancomycin IV x 1, Ceftax IV x1, Tylenol IV x 1 On exam: Vitals: Tmax: 100.6, HR: 101, RR: 20, BP: 133/93, Saturating at 98% on RA GEN: resting in bed in no acute distress, drowsy but arousable, cachectic HEENT: EOMI, MMM, NCAT Lungs: decreased breath sound bilaterally, no wheezing, rhonchi or rales CVS: RRR, S1 and S2 Abd: soft, nt, nd, +bs Neuro: drowsy, but arousable, A&O x 3 Ext: no edema, cyanosis or clubbing, +dorsalis pedis and radial pulses Labs and Imaging as above Problems: 1. Fever, cough and leukocytosis 2/2 Presumed Aspiration Pneumonia 2. Failure to thrive 3. H/O Decubitus Ulcer 4. H/O Parkinson's, Supranuclear Palsy, COPD, CHF Plan: Admit to gen med Patient received IV Vancomycin and IV Ceftaz Will cover with IV Unasyn for apsiration pneumonia Continue IV fluids Pain control with tylenol Follow up CBC and BEP Wound care consult placed Palliative care consult placed - we had an in depth discussion with the daughter concerning patient's poor prognosis and goals of care. Daughter at this time remains uncertain however appears to be more open to discussing converting patient from full code to DNR/DNI. Based on patient current medical condition including cachexia CPR would be traumatic for the patient. At this time patient' s daughter has kept her full code and states she will discuss it with her family. Continue home medications Diet: puree with thickened liquids DVT PPx: ALPS only in setting of recent anemia requiring transfusions
[2018-06-23 19:49] VITALS: BP 138/80
--- NOTE | 2018-06-23 20:18 | Admission Certification ---
Admission Certification Certification Statement - As attending physician, I certify that at the time of - admission, based on clinical presentation, severity of - symptoms, need for further diagnostic testing and - therapeutic interventions, and risk of adverse outcomes - without in-hospital treatment, in my clinical assessment, - this patient requires an acute hospital stay for a minimum - of two nights or longer. I have also considered psychsocial - factors such as support system, advanced age, financial - issues, cognitive issues, and failed out-patient treatments, - past re-admission history, safety of patient, and lack of - compliance as applicable. Specific rationale supporting this admission is: Patient requires hospitalization for management of her fever.
[2018-06-24 06:15] VITALS: BP 134/82
--- NOTE | 2018-06-24 07:16 | PN- Housestaff ---
Luis Velez 06/24/18 0715: Subjective [facility] Subject[facility]: Patient was seen and examined today. Patient continues to be drowsy however there is an improvement in her mental status. Patient opened her eyes and answer a few questions however she continues to be indifferent to her surroundings. She is a poor historian. Review of Systems Constitutional: Reports: diaphoresis, fever, malaise, weakness, unexplained weight loss. Objective Last 24 Hrs of Vital Signs/I&O Vital Signs Date Time Temp Pulse Resp B/P B/P Pulse O2 O2 Flow FiO2 Mean Ox Delivery Rate 06/24 1642 98 Room Air Room Air 06/24 1407 98.1 93 16 145/87 100 Room Air 06/24 1319 Room Air Room Air 06/24 0809 80 134/70 06/24 0801 95 Room Air 06/24 0615 97.8 78 18 134/82 100 09/ 0000 Room Air 06/23 1949 98.4 75 18 138/80 98 Room Air 06/23 1855 98.9 78 16 156/80 99 Room Air 06/23 1845 99.7 Intake & Output 06/24 1600 06/24 0800 06/24 0000 Intake Total 625 373 8172 Output Total Balance 582 836 0821 Intake, IV 941 289 3130 Intake, Oral 480 60 0 Number 1 Bowel Movements Patient 84 lb 9 oz 84 lb 9 oz 74 lb 15.98 oz Weight Weight Bed scale Measurement Method Physical Exam General Appearance: Alert, Oriented X3, Cooperative, No Acute Distress Cardiovascular: Regular Rate, No Murmurs Lungs: Clear to Auscultation, Normal Air Movement Abdomen: Normal Bowel Sounds, Soft, No Tenderness, No Hepatospenomegaly, No Masses Neurological: Normal Speech, Strength at 5/5 X4 Ext, Normal Tone, Sensation Intact Extremities: No Tenderness/Swelling Current Medications: Current Medications Sig/[place] Start time Last Medication Dose Route Stop Time Status Admin Acetaminophen 650 MG Q6P PRN 06/23 2130 AC PO Acetaminophen 1,000 MG Q6P PRN 06/23 2130 AC IV Amlodipine Besylate 5 MG DAILY 06/24 09 AC 06/24 PO 0809 Ampicillin Sodium/ 1,500 MG Q24 06/25 900 CAN Sulbactam Sodium IV Sodium Chloride 100 ML Ampicillin Sodium/ 1,500 MG Q6 06/24 1800 AC 06/24 Sulbactam Sodium IV 1813 Sodium Chloride 100 ML Ampicillin Sodium/ 3,000 MG Q12H 06/24 0000 DC 06/24 Sulbactam Sodium IV 1149 Sodium Chloride 100 ML Artificial Tears 2 GTT TID 06/23 213 AC 06/24 OPH 1337 Dextrose/Sodium 1,000 ML .[id number] 06/23 213 DC 06/23 Chloride IV 2151 Ferrous Sulfate 325 MG DAILY 06/24 0900 AC 06/24 PO 08 Polyethylene Glycol 17 GM AT BEDTIME PRN 06/23 2145 AC PO Potassium Chloride 40 MEQ ONCE ONE 06/24 1800 DC 06/24 PO 06/24 1801 1818 Potassium Chloride 20 MEQ Q20H 06/24 1045 AC 06/24 Dextrose/Sodium 1,000 ML IV 1055 Chloride Potassium Chloride 20 MEQ 50 MLS/HR 06/24 1030 CAN IV Potassium Chloride 10 MEQ Q1H 06/24 1030 CAN IV 06/24 1131 Potassium Chloride 40 MEQ ONCE ONE 06/24 1030 DC 06/24 PO 06/24 1031 1042 Senna/Docusate Sodium 1 TAB AT BEDTIME PRN 06/23 2145 AC PO Sodium Chloride 1,000 ML BOLUS ONE 06/23 1800 DC 06/23 IV 06/23 1859 1801 Last 24 Hrs of Lab/Hermes Results Last 24 Hrs of Labs/Mics: Laboratory Tests 06/24/18 1600: Anion Gap 7, Estimated GFR > 60, BUN/Creatinine Ratio 22.0 06/24/18 0650: Anion Gap 6, Estimated GFR > 60, BUN/Creatinine Ratio 20.0, Total Protein 5.4 L , Albumin 2.5 L, CBC w Diff NO MAN DIFF REQ, RBC 3.06 L, MCV 90.6, MCH 29.6, MCHC 32.7 L, RDW 21.8 H, Gran % 82.0 H, Lymphocytes % 11.1 L, Monocytes % 6.1, Eosinophils % 0.8, Basophils % 0, Absolute Granulocytes 8.2 H, Absolute Lymphocytes 1.1 L, Absolute Monocytes 0.6, Absolute Eosinophils 0.1, Absolute Basophils 0 06/23/18 1830: Lactic Acid 0.9 Assessment/Plan Assessment: This is a 72-year-old female with history of Parkinson's, dementia, progressive supranuclear palsy complicated by aspiration pneumonia and recent admission for to the emergency department with hypoxia, fever, shortness of breath, cough which is been progressive for the last few days. She was seen by her PCP today and sent to ER again. A/p- 1. Fever with ? Pneumonia 2/2 Aspiration 2. Decubitous ulcer 3. Failure to thrive Patient has leukocytosis, elevated lactic acid, - Patient receievd iv vancomycin in the ER , changed to IV Unasyn , - F/u bood cx, - hydrate the patient- 75cc/hr D5 in 10/14 NS - wound management to be consulted in the am - Poor overall prognosis given her comorbidities. to discuss Hopsice care with daughter in the am. - amlodipine cr is going low , leukocytpsis resolved - Consult DR Aguilar for Hospice care discussion with the daughter, code status- Full code DVT prohylaxis - pending Problem List: 1. Decubitus ulcer 2. Aspiration pneumonia Pain Ratin Pain Location: none Pain Goal: Remain pain free Pain Plan: nbone Tomorrow's Labs & Rationales: Galen Blanco MD 06/24/182039: Attending MD Review Statement Attending Statement Attending MD Statement: examined this patient, discuss w/resident/PA/LINING MACHINE TENDER, agreed w/resident/PA/LINING MACHINE TENDER, reviewed EMR data (avail), discussed with nursing, discussed with case mgmt, amended to note Attending Assessment/Plan: The patient was seen and discussed with house staff. Appreciate wound care consult and will use [place] bed. Case management stated that the patient's daughter turned away the prior home agency and told them she wanted Hospice, however was never contacted to arrange. Consult with Dr. Sam for palliative care has been placed. Follow-up H/H as planned.
[2018-06-24 07:58] LABS: ABSOLUTE BASOPHIL COUNT 0 /CUMM (0.0-0.2); ABSOLUTE EOSINOPHIL COUNT 0.1 /CUMM (0.0-0.7); ABSOLUTE GRANULOCYTE CT 8.2 /CUMM (1.4-6.5); ABSOLUTE LYMPH COUNT 1.1 /CUMM (1.2-3.4); ABSOLUTE MONOCYTE COUNT 0.6 /CUMM (0.10-0.60); BASOPHIL % 0 % (0.0-2.0); EOSINOPHIL % 0.8 % (0-5); HEMATOCRIT 27.7 % (37-47); MEAN CORPUSCULAR HGB 29.6 PG (27.0-31.0); MEAN CORPUSCULAR HGB CONC 32.7 G/DL (33.0-37.0); MEAN CORPUSCULAR VOLUME 90.6 FL (81.0-99.0); RBC DISTRIBUTION WIDTH 21.8 % (11.5-14.5); RED BLOOD CELL CT 3.06 /CUMM (4.20-5.40)
[2018-06-24 14:07] VITALS: BP 145/87
--- NOTE | 2018-06-24 16:03 | Cons- Wound Care ---
General Information and HPI Consulting Request Date of Consult: 06/24/18 Requested By: Galen Deras MD Reason for Consult: Decubitus ulcer of the coccyx present on admission History of Present Illness: Patient is a 72-year-old noncommunicative with dementia Parkinson's disease admitted with suspected aspiration pneumonia and found to have a decubitus ulcer of the coccyx present on admission Allergies/Medications Allergies: Coded Allergies: aspirin (GI BLEED 06/18/18) nitrofurantoin (From MACROBID) (NAUSEA 05/23/18) Home Med List: Acetaminophen (Pain & Fever) 325 MG TABLET 2 TAB PO PRN PAIN (Reported) Albuterol Sulfate (Unknown Strength) VIAL.NEB (Unknown Dose) INH/LISA PRN RESP. (Reported) Amlodipine Besylate (Norvasc) 5 MG TABLET 1 TAB PO DAILY HTN Budesonide (Unknown Strength) AMPUL.NEB (Unknown Dose) INH/LISA PRN RESP. ( Reported) Dextran 70/Hypromellose (Natural Balance Tears Eye Drop) (Unknown Strength) DROPS (Unknown Dose) OU PRN DRY EYES (Reported) Docusate Sodium (Colace) 100 MG CAPSULE 1 CAP PO BID PRN CONSTIPATION Please take as directed. Ferrous Sulfate 325 MG (65 MG IRON) TABLET.DR 325 MG PO DAILY anemia Please take as directed. Polyethylene Glycol 3350 (Miralax) 17 GRAM/DOSE POWDER 17 GM PO DAILY PRN CONSTIPATION Please take as directed. Sennosides (Senna) 8.6 MG TABLET 2 TAB PO DAILY PRN CONSTIPATION Please take as directed. Starch (Thick-It) 1 EACH POWD.PACK 1 PAC PO WITH MEALS Aspiration Risk Mix with liquids. Review of Systems Review of Systems: Unobtainable Past History Travel History Traveled to [place] past 21 day No Medical History Neurological: dementia, Parkinson's disease, Prog. Super Nuc Palsy EENT: NONE Cardiovascular: CHF Respiratory: COPD Gastrointestinal: NONE Hepatic: NONE Renal: urinary incontinence Musculoskeletal: NONE Psychiatric: NONE Endocrine: NONE Blood Disorders: NONE Cancer(s): NONE INTERIOR PANELER/Reproductive: NONE Surgical History Surgical History: non-contributory Psychosocial History Where Do You Live? Home Services at Home: Home Health Aide, Nursing Smoking Status: Unknown If Ever Smoked Living Will? unknown Power of Parts Lister/HCP? unknown Functional Ability ADLs Needs Assist: dressing, eating, toileting, bathing. Ambulation: non-ambulatory IADLs Needs Assist: shopping, housework, finances, food prep, telephone, transportation, medication admin. Exam & Diagnostic Data Vital Signs and I&O Vital Signs Result Date Time Pulse Ox 100 06/24 1407 B/P 145/87 06/24 1407 O2 Delivery Room Air 06/24 1407 Temp 98.1 06/24 1407 Pulse 93 06/24 1407 Resp 16 06/24 1407 O2 Flow Rate Room Air 06/24 1319 Intake & Output 06/24 0000 06/23 1600 06/23 0800 Intake Total 1100 Output Total Balance 1100 Intake, IV 1100 Intake, Oral 0 Patient 74 lb 15.98 oz 74 lb 15.98 oz Weight Weight Bed scale Reported by Patient Measurement Method Physical Exam: There is approximately 1.5 x 1 cm stage III pressure ulcer of the coccyx with red and yellow fill is no undermining sinus tracking exposed bone this appears to be within a larger area of presumed prior ulceration which appears to have healed. Note the patient has evidence of malnutrition with extensive muscle wasting in reduced serum proteins Assessment/Plan Impression/Plan: 72-year-old woman with severe dementia and noncommunicative found to have a small stage III pressure ulcer of the coccyx present on admission. Patient has urine and fecal incontinence. Recommend use of a thin DuoDERM changed every 2-3 days. Offload the area with frequent repositioning. If the patient is to remain hospitalized in view of high risk for deterioration would place on a [place] bed Consult Acknowledgment - Thank you for your consult request.
[2018-06-24 21:04] VITALS: BP 130/78
[2018-06-25 06:44] VITALS: BP 150/80
--- NOTE | 2018-06-25 07:34 | Discharge Summary ---
Visit Information Visit Dates Admission Date: 06/23/18 Hospital Course Allergies: Coded Allergies: aspirin (GI BLEED 06/18/18) nitrofurantoin (From MACROBID) (NAUSEA 05/23/18) Discharge Instructions Medications at Discharge Discharge Medications: Continue taking these medications: Ferrous Sulfate (Ferrous Sulfate) 325 MG (65 MG IRON) TABLET. 325 Milligram ORAL DAILY Qty = 60 Instructions: Please take as directed. Comments: Last Taken: 06/10/18 Time: 8:37 AM Docusate Sodium (Colace) 100 MG CAPSULE 1 Capsule ORAL TWICE DAILY as needed for CONSTIPATION Qty = 30 Instructions: Please take as directed. Comments: NOT GIVEN IN HOSPITAL Polyethylene Glycol 3350 (Miralax) 17 GRAM/DOSE POWDER 17 Gram ORAL DAILY as needed for CONSTIPATION Qty = 30 Instructions: Please take as directed. Comments: Last Taken: 06/10/18 Time: 8:27 AM Sennosides (Senna) 8.6 MG TABLET 2 Tablet ORAL DAILY as needed for CONSTIPATION Qty = 60 Instructions: Please take as directed. Comments: Last Taken: 06/10/18 Time: 8:27 AM Starch (Thick-It) 1 EACH POWD.PACK 1 Packet ORAL WITH MEALS Qty = 120 Instructions: Mix with liquids. Acetaminophen (Pain & Fever) 325 MG TABLET 2 Tablet ORAL as needed for PAIN Budesonide (Budesonide) (Unknown Strength) AMPUL.NEB Unknown Dose Inhale Solution as needed for RESP. Albuterol Sulfate (Albuterol Sulfate) 2.5 MG/3 ML (0.083 %) VIAL.NEB 1 Inhalation Inhale Solution NEEDED as needed for RESP. Dextran 70/Hypromellose (Natural Balance Tears Eye Drop) (Unknown Strength) DROPS Unknown Dose Both Eyes as needed for DRY EYES Amlodipine Besylate (Norvasc) 5 MG TABLET 1 Tablet ORAL DAILY Qty = 30
--- NOTE | 2018-06-25 07:34 | PN- Housestaff ---
Luis Velez 06/25/18 0734: Subjective Follow-up For: aspiration Parkinson failure to thrive Subjective: Patient was seen and examined today she was lying in her bed. She was talking and eating the food. The tech said that the patient was not swallowing her food. Although the patient states that she is very hungry and wants to eat. Patient has been more awake compared to yesterday but continues to be demented. No signs of delirium seen. Review of Systems Constitutional: Reports: see HPI. Objective Last 24 Hrs of Vital Signs/I&O Vital Signs Date Time Temp Pulse Resp B/P B/P Pulse O2 O2 Flow FiO2 Mean Ox Delivery Rate 06/25 1000 150/80 06/25 0800 99 06/25 0644 97.9 77 20 150/80 99 06/25 0000 100 Room Air 06/24 2104 98.4 83 20 130/78 100 Room Air 06/24 1642 98 Room Air Room Air 06/24 1407 98.1 93 16 145/87 100 Room Air Intake & Output 06/25 1600 06/25 0800 06/25 0000 Intake Total 400 470 Output Total Balance 400 470 Intake, IV 400 350 Intake, Oral 120 Number 1 Bowel Movements Patient 67 lb 1 oz Weight Weight Susy Lift Measurement Method Physical Exam General Appearance: Alert, Oriented X3, Cooperative, No Acute Distress Cardiovascular: Regular Rate, No Murmurs Lungs: Clear to Auscultation, Normal Air Movement Abdomen: Normal Bowel Sounds, Soft, No Tenderness, No Hepatospenomegaly, No Masses Neurological: demented, patient is oriented totime and place Extremities: No Clubbing, No Cyanosis, No Edema, Normal Pulses, No Tenderness/ Swelling Current Medications: Current Medications Sig/Tootie Start time Last Medication Dose Route Stop Time Status Admin Acetaminophen 650 MG Q6P PRN 06/23 2130 AC PO Acetaminophen 1,000 MG Q6P PRN 06/23 2130 AC IV Amlodipine Besylate 5 MG DAILY 06/24 09 AC 06/25 PO 1000 Amoxicillin/ 875 MG Q12 06/25 2100 AC Clavulanate Potassium PO Ampicillin Sodium/ 1,500 MG Q24 06/25 0900 CAN Sulbactam Sodium IV Sodium Chloride 100 ML Ampicillin Sodium/ 1,500 MG Q6 06/24 1800 DC 06/25 Sulbactam Sodium IV 0640 Sodium Chloride 100 ML Ampicillin Sodium/ 3,000 MG Q12H 06/24 0000 DC 06/24 Sulbactam Sodium IV 1149 Sodium Chloride 100 ML Artificial Tears 2 GTT TID 06/23 2139 AC 06/25 OPH 1153 Ferrous Sulfate 325 MG DAILY 06/24 0900 AC 06/25 PO 1000 Polyethylene Glycol 17 GM AT BEDTIME PRN 06/23 2145 AC PO Potassium Chloride 40 MEQ ONCE ONE 06/25 0930 DC 06/25 PO 06/25 0931 0959 Potassium Chloride 40 MEQ ONCE ONE 06/24 1800 DC 06/24 PO 06/24 1801 1818 Potassium Chloride 20 MEQ Q20H 06/24 1045 AC 06/25 Dextrose/Sodium 1,000 ML IV 1154 Chloride Senna/Docusate Sodium 1 TAB AT BEDTIME PRN 06/23 214 AC PO Last 24 Hrs of Lab/Hermes Results Last 24 Hrs of Labs/Mics: Laboratory Tests 06/25/18 0743: Anion Gap 8, Estimated GFR > 60, BUN/Creatinine Ratio 20.0 06/24/18 1600: Anion Gap 7, Estimated GFR > 60, BUN/Creatinine Ratio 22.0 Assessment/Plan Assessment: This is a 72-year-old female with history of Parkinson's, dementia, progressive supranuclear palsy complicated by aspiration pneumonia and recent admission for to the emergency department with hypoxia, fever, shortness of breath, cough which is been progressive for the last few days. She was seen by her PCP today and sent to ER again. A/p- 1. Fever with ? Pneumonia 2/2 Aspiration 2. Decubitous ulcer 3. Failure to thrive - nutrition consulted , intake to be monitored in caloroies and pureed diet recommended. - plan to change unasyn to PO augmentin - F/u bood cx, - hydrate the patient- 75cc/hr D5 in 1/2 NS - wound management to be consulted , f/u notes - Poor overall prognosis given her comorbidities. to discuss Hopsice care with daughter. - amlodipine -cr is going low , leukocytpsis resolved - Consult DR Aguilar to participate Hospice care discussion with the daughter. - electrolyets monitored and repleted Problem List: 1. Decubitus ulcer 2. Aspiration pneumonia Pain Ratin Pain Location: none Pain Goal: Remain pain free Pain Plan: none Tomorrow's Labs & Rationales: Galen Blanco MD 06/25/18 2125: Attending MD Review Statement Attending Statement Attending MD Statement: examined this patient, discuss w/resident/PA/WEIGHT COUNT OPERATOR, agreed w/resident/PA/WEIGHT COUNT OPERATOR, reviewed EMR data (avail), discussed with nursing, discussed with case mgmt, amended to note Attending Assessment/Plan: The patient was seen and discussed with house staff, nursing, and case management. Palliative care input appreciated. The patient remains afebrile and appears similar to how she did upon last discharge. Unclear why the patient's daughter declined home service agency after the last admission (Case Management spoke with agency and stated she told them when they arrived she preferred Hospice). Will need to clarify with daughter goals of care and discuss home services, etc. Dr. Sam to contact her regarding these issues and may need to arrange another meeting.
[2018-06-25 14:09] VITALS: BP 144/84
--- NOTE | 2018-06-25 17:30 | Cons- Palliative Care ---
Nursing Assessment/Plan Nursing Assessment/Plan: Total assist in ADL, bedbound, alert and oriented to self. open coccyx wound. General Information and HPI Consulting Request Date of Consult: 06/25/18 Requested By: Galen Deras MD Reason for Consult: care/transition planning Source patient, old records, EMS Exam Limitations clinical condition Associated Symptoms: cough History of Present Illness: Isabel is a 72 year old female with a PMH of Parkinson's disease versus supranuclear palsy with dementia, COPD, urinary and bowel incontinence, was brought in for increased drowsiness and fever. Patient was discharged from [facility] last month for aspiration pneumonia, following which she was on pureed food after failing swallow study.Patient was apparently doing alright, had been concious and taking feeds normally and had a good appetite. SHe asked fpr fried chicekn and icecream 2 days ago , which was given to her in pureed form following whcih the patient had stomach symptoms , abdominal pain. Patient did not vomit or have any diarrhoes. However she developed cough following that episode. she does not produce any sputum, but developed fever this morning about 99.6, following which she was taken to see her new PCP Dr. Carola Grossman and was sent into ER for increased drowsiness this am. AT the ER the patient has been excessively drowsy but arousable and is answering certain questions only. She is alert to place and time and person. However continues to be exhausted. Allergies/Medications Allergies: Coded Allergies: aspirin (GI BLEED 06/18/18) nitrofurantoin (From MACROBID) (NAUSEA 05/23/18) Home Med List: Acetaminophen (Pain & Fever) 325 MG TABLET 2 TAB PO PRN PAIN (Reported) Albuterol Sulfate (Unknown Strength) VIAL.NEB (Unknown Dose) INH/LISA PRN RESP. (Reported) Amlodipine Besylate (Norvasc) 5 MG TABLET 1 TAB PO DAILY HTN Budesonide (Unknown Strength) AMPUL.NEB (Unknown Dose) INH/LISA PRN RESP. ( Reported) Dextran 70/Hypromellose (Natural Balance Tears Eye Drop) (Unknown Strength) DROPS (Unknown Dose) OU PRN DRY EYES (Reported) Docusate Sodium (Colace) 100 MG CAPSULE 1 CAP PO BID PRN CONSTIPATION Please take as directed. Ferrous Sulfate 325 MG (65 MG IRON) TABLET.DR 325 MG PO DAILY anemia Please take as directed. Polyethylene Glycol 3350 (Miralax) 17 GRAM/DOSE POWDER 17 GM PO DAILY PRN CONSTIPATION Please take as directed. Sennosides (Senna) 8.6 MG TABLET 2 TAB PO DAILY PRN CONSTIPATION Please take as directed. Starch (Thick-It) 1 EACH POWD.PACK 1 PAC PO WITH MEALS Aspiration Risk Mix with liquids. Current Medications: Current Medications Sig/Tootie Start time Last Medication Dose Route Stop Time Status Admin Acetaminophen 650 MG Q6P PRN 06/23 2130 AC 06/25 PO 1713 Acetaminophen 1,000 MG Q6P PRN 06/23 2130 AC IV Amlodipine Besylate 5 MG DAILY 06/24 0900 AC 06/25 PO 1000 Amoxicillin/ 875 MG Q12 06/25 2100 DC Clavulanate Potassium PO Amoxicillin/ 500 MG Q12 06/25 2100 AC Clavulanate Potassium PO Ampicillin Sodium/ 1,500 MG Q6 06/24 1800 DC 06/25 Sulbactam Sodium IV 0640 Sodium Chloride 100 ML Artificial Tears 2 GTT TID 06/23 2139 AC 06/25 OPH 1400 Ferrous Sulfate 325 MG DAILY 06/24 0900 AC 06/25 PO 1000 Polyethylene Glycol 17 GM AT BEDTIME PRN 06/23 2145 AC PO Potassium Chloride 40 MEQ ONCE ONE 06/25 0930 DC 06/25 PO 06/25 0931 0959 Potassium Chloride 40 MEQ ONCE ONE 06/24 1800 DC 06/24 PO 06/24 1801 1818 Potassium Chloride 20 MEQ Q20H 06/24 1045 AC 06/25 Dextrose/Sodium 1,000 ML IV 1154 Chloride Senna/Docusate Sodium 1 TAB AT BEDTIME PRN 06/23 2145 AC PO Review of Systems Review of Systems Constitutional: Reports: see HPI. Past History Medical History Neurological: dementia, Parkinson's disease, Prog. Super Nuc Palsy EENT: NONE Cardiovascular: CHF Respiratory: COPD Gastrointestinal: NONE Hepatic: NONE Renal: urinary incontinence Musculoskeletal: NONE Psychiatric: NONE Endocrine: NONE Blood Disorders: NONE Cancer(s): NONE GARNETT ROOM WORKER/Reproductive: NONE Surgical History Surgical History: non-contributory Psychosocial History Where Do You Live? Home Services at Home: Home Health Aide, Nursing Smoking Status: Unknown If Ever Smoked Karnofsky Performance Scale: 20 Living Will? unknown Power of Zoning Assistant/HCP? unknown Functional Ability ADLs Needs Assist: dressing, eating, toileting, bathing. Ambulation: non-ambulatory IADLs Needs Assist: shopping, housework, finances, food prep, telephone, transportation, medication admin. Exam & Diagnostic Data Last 24 Hrs of Vitals/I&Os: Vital Signs Date Time Temp Pulse Resp B/P B/P Pulse O2 O2 Flow FiO2 Mean Ox Delivery Rate 06/25 1409 97.0 87 20 144/84 93 Room Air 06/25 1310 94 Room Air 06/25 1000 150/80 06/25 0800 99 06/25 0644 97.9 77 20 150/80 99 06/25 0000 100 Room Air 06/24 2104 98.4 83 20 130/78 100 Room Air Intake & Output 06/25 1600 06/25 0800 06/25 0000 Intake Total 880 400 470 Output Total Balance 880 400 470 Intake, IV 400 400 350 Intake, Oral 480 120 Number 3 Bowel Movements Patient 30.419 kg Weight Weight Susy Lift Measurement Method Physical Exam: Patient is alert and oriented to self. cachexic with BMI - 13.5. Heart sounds S1 , S2 present, no murmurs. Abdomen - benign. extermities - no cyanosis, edema. Assessment/Plan Assessment Patient is a 72 YO F with PMH significant for progressive supranuclear palsy c/b dysphagia leading to recurrent aspiration pneumonia presented to hospital with another episode of aspiration pneumonia. Patient is alert, oriented to self, very cachexic with BMI 13. She did have progressive disease that do not have significant medical intervention except supportive care. Daughter reverted hospice care to full code a while ago and she is the POA. Plan 1. Continue to optimize medical care as you are doing 2. Dr. Sam will discuss goals of care with the daughter 3. Would add mucinex twice a day to let her cough bring up her secretions 4. Not an ideal candidate for PEG as do not prevent aspiration of secretions as discussed earlier. 5. Case management to assist with enuring patient has adequate services, equipment, and assistance at home 6. If patient remains at high risk for readmission (which she most likely will), unless a safe discharge plan can be constructed, one may need to consider option of LTC. The patient appears to require 24 hour, total care - it will be essential to determine that patient is obtaining this level of care. Patient's Condition: stable Prognosis: guarded Is Patient Decisional? no Case Discussed With: house staff Consult Acknowledgment - Thank you for your consult request. Attending MD Review Statement Attending Statement Attending MD Statement: examined this patient, discuss w/resident/PA/BRICK AND BLOCKER AID LABOR, agreed w/resident/PA/BRICK AND BLOCKER AID LABOR, reviewed EMR data (avail), discussed w/case mgmt, amended to note Attending Assessment/Plan: 72F w/ severe frailty in setting of advacing PSP, chronic back decubitus ulcer, dysphagia, recurrent aspiration. Patient was see originally by me 1 month ago during her first admission to . At that time, I (along with several others) participated in extensive discussion during which the patient's daughter, Yoselin, shared a complex history surrounding the patient's original hospitalization in [place] -> [facility] (several months) -> home hospice (appr 1 wk), at which time patient was rehospitialized at . At that time, goals of care were to promote patient's comfort, but at the same time, daughter was unable/unwilling to place any limitations on patient's medical treatments. Dr. Deras and myself had frequent interactions with her to explain medically indicated and appropriate inteventions, namely treatments the team recommended and offered, and those that were not being offered. The patient has demonstrated ongoing dysphagia and is at risk for aspiration. It has been explained to daughter, granddaughter, patient that a gastrostomy tube offers little in reducing the chances of aspiration pneumonia (and might worsen risks as well) as patient is most likely aspirating oral secretions on an ongoing basis. We originally advised and educated on techniques to optimize safety of oral intake - pureed foods, oral hygiene, etc. We also advised on patient's poor prognosis given her progressive condition and the presence of a decubitus ulcer. It is unclear at this time what level of care patient was recieving at home - and perhaps this might be an avenue to pursue. The patient's current condition does not appear significantly different from when she was discharged, that being said, treatment at home, might have been an option in this case - however, it will be essential to ensure that she has adequate nursing care and other resources for this to be an acceptable opion.
[2018-06-25 22:17] VITALS: BP 144/84
[2018-06-26 06:45] VITALS: BP 139/86
--- NOTE | 2018-06-26 07:12 | PN- Housestaff ---
Luis Velez 06/26/18 0711: Subjective Follow-up For: FAILURE TO thrive Aspiration Subjective: She was seen and examined today. She said that she was not doing well. Said that she has pain . on asking further questions, she said that the pain was in the abdomen, it was cramping type and she also had pain in the butt. Patient is a poor historian and demented complete review of system could not be obtained Review of Systems Constitutional: Reports: see HPI. EENTM: Reports: see HPI. Objective Last 24 Hrs of Vital Signs/I&O Vital Signs Date Time Temp Pulse Resp B/P B/P Pulse O2 O2 Flow FiO2 Mean Ox Delivery Rate 06/26 1016 139/86 06/26 0645 98.4 83 16 139/86 100 Room Air 06/26 0000 Room Air 06/25 2217 98.8 91 18 144/84 100 Room Air 06/25 1941 97 Room Air 06/25 1600 Room Air 06/25 1409 97.0 87 20 144/84 93 Room Air 06/25 1310 94 Room Air Intake & Output 06/26 1600 06/26 0800 06/26 0000 Intake Total 640 50 Output Total Balance 640 50 Intake, IV 400 Intake, Oral 240 50 Number 1 Bowel Movements Physical Exam General Appearance: Alert, Oriented X3, Cooperative, No Acute Distress Cardiovascular: Regular Rate, No Murmurs Lungs: Clear to Auscultation, Normal Air Movement Abdomen: Normal Bowel Sounds, Soft, No Tenderness, No Hepatospenomegaly, No Masses Neurological: Normal Speech, Strength at 5/5 X4 Ext, Normal Tone, Sensation Intact Other Physical Findings: stage 3 dec ulcer on the coccyx Current Medications: Current Medications Sig/Tootie Start time Last Medication Dose Route Stop Time Status Admin Acetaminophen 650 MG Q6P PRN 06/23 2130 AC 06/26 PO 0332 Acetaminophen 1,000 MG Q6P PRN 06/23 2130 AC IV Amlodipine Besylate 5 MG DAILY 06/24 900 AC 06/26 PO 1016 Amoxicillin/ 875 MG Q12 06/25 2100 DC Clavulanate Potassium PO Amoxicillin/ 500 MG Q12 06/25 2100 AC 06/26 Clavulanate Potassium PO 1019 Artificial Tears 2 GTT TID 06/23 2139 AC 06/25 OPH 213 Dicyclomine HCl 20 MG 4 TIMES/DAY PRN 06/26 1014 UNVr PO Dicyclomine HCl 20 MG 4 TIMES/DAY 06/26 0908 DC PO Ferrous Sulfate 325 MG DAILY 06/24 0900 AC 06/26 PO 1017 Polyethylene Glycol 17 GM AT BEDTIME PRN 06/23 2145 AC PO Potassium Chloride 20 MEQ Q20H 06/24 1045 AC 06/26 Dextrose/Sodium 1,000 ML IV 0550 Chloride Senna/Docusate Sodium 1 TAB AT BEDTIME PRN 06/23 2145 AC PO Last 24 Hrs of Lab/Hermes Results Last 24 Hrs of Labs/Mics: Laboratory Tests 06/26/18 0950: CBC w Diff Pending, WBC Pending, RBC Pending, Hgb Pending, Hct Pending, MCV Pending, MCH Pending, MCHC Pending, RDW Pending, Plt Count Pending, MPV Pending, Gran % Pending, Lymphocytes % Pending, Monocytes % Pending, Eosinophils % Pending, Basophils % Pending, Absolute Granulocytes Pending, Absolute Lymphocytes Pending, Absolute Monocytes Pending, Absolute Eosinophils Pending, Absolute Basophils Pending 06/26/18 0620: Anion Gap 6, Estimated GFR > 60, BUN/Creatinine Ratio 14.0, Total Bilirubin Pending, Direct Bilirubin Pending, AST Pending, ALT Pending, Alkaline Phosphatase Pending, Total Protein Pending, Albumin Pending, Lipase Pending Microbiology 06/26 952 UPPER RESP: Surveillance Culture - CAN Cancelled: Cancelled via OE: WRONG PT 06/26 952 GI: Surveillance Culture - CAN Cancelled: Cancelled via OE: WRONG PT Assessment/Plan Assessment: This is a 72-year-old female with history of Parkinson's, dementia, progressive supranuclear palsy complicated by aspiration pneumonia and recent admission for to the emergency department with hypoxia, fever, shortness of breath, cough which is been progressive for the last few days. She was seen by her PCP today and sent to ER again. A/p- 1. Fever with ? Pneumonia 2/2 Aspiration 2. Decubitous ulcer 3. Failure to thrive 4. Hypokalemia 5. Abdominal pain Failure to thrive -Patient has failed swallow study recommended. - Consulted DR Aguilar to participate Hospice care discussion with the daughter. -Continue home medications -We will discuss about the G-tube requirement Hypokalemia Aspiration, suspected pneumonia - F/u bood cx, - hydrate the patient- 75cc/hr D5 in 1/2 NS Decubitus ulcer - Poor overall prognosis given her comorbidities. to discuss Hopsice care with daughter. - amlodipine Abdominal pain Patient complains of crampy abdominal pain, no distention or any physical findings or signs suggestive of any serious abdominal complications Patient has a good appetite and has been having bowel movements every day Bentyl prescribed for now Problem List: 1. Decubitus ulcer 2. Aspiration into lower respiratory tract 3. Protein-energy malnutrition Pain Ratin Pain Location: abdomen Pain Goal: Remain pain free Pain Plan: bentyl Tomorrow's Labs & Rationales: bep, mg, cbc Augusta HANSON,Galen 06/26/18 1308: Attending MD Review Statement Attending Statement Attending MD Statement: examined this patient, discuss w/resident/PA/CLINICAL OUTCOMES MANAGER, agreed w/resident/PA/CLINICAL OUTCOMES MANAGER, reviewed EMR data (avail), discussed with nursing, discussed with case mgmt, amended to note Attending Assessment/Plan: The patient was seen and discussed with house staff, nursing, and case management. Appreciate Palliative Care input. Dr. Sam was unable to reach the patient's daughter yesterday. Case management received a message and they will attempt to reach her after 3 pm today. Need to discuss plans for home services (vs. Hospice). She did have some abdominal discomfort this morning, however was relieved after eating. Will continue current care.
--- NOTE | 2018-06-26 08:45 | Patient Discharge Instructions ---
Discharge Instructions General Discharge Information You were seen/treated for: Failure to thrive Aspiration ?Pneumonia Special Instructions: Please follow up with PCP within 1 week of discharge Acute Coronary Syndrome Inclusion Criteria At DC or during hospital stay patient has or had the following: ACS DIAGNOSIS No Discharge Core Measures Meds if any: Prescribed or Continued at Discharge Meds if any: NOT Prescribed or Continued at Discharge Congestive Heart Failure Inclusion Criteria At DC or during hospital stay patient has or had the following: CHF DIAGNOSIS No Discharge Core Measures Meds if any: Prescribed or Continued at Discharge Meds if any: NOT Prescribed or Continued at Discharge Cerebrovascular accident Inclusion Criteria At DC or during hospital stay patient has or had the following: CVA/TIA Diagnosis No Discharge Core Measures Meds if any: Prescribed or Continued at Discharge Meds if any: NOT Prescribed or Continued at Discharge Venous thromboembolism Inclusion Criteria VTE Diagnosis No VTE Type NONE VTE Confirmed by (Test) NONE Discharge Core Measures - Per Current guidelines, there needs to be overlap - treatment for the first 5 days of Warfarin therapy. - If discharged on Warfarin prior to 5 days of - overlap therapy, the patient will need to be - assessed for post discharge needs including - *Post discharge parental anticoagulation - *Warfarin and/or parental anticoagulation education - *Follow up date to check INR post discharge At least 5 days overlap therapy as Inpatient No Meds if any: Prescribed or Continued at Discharge Note: Overlap Therapy is Warfarin and Anticoagulant Meds if any: NOT Prescribed or Continued at Discharge
[2018-06-26 10:00] LABS: ABSOLUTE BASOPHIL COUNT 0 /CUMM (0.0-0.2); ABSOLUTE EOSINOPHIL COUNT 0.1 /CUMM (0.0-0.7); ABSOLUTE GRANULOCYTE CT 4.4 /CUMM (1.4-6.5); ABSOLUTE MONOCYTE COUNT 0.6 /CUMM (0.10-0.60); BASOPHIL % 0.4 % (0.0-2.0); EOSINOPHIL % 1.2 % (0-5); GRANULOCYTE % 72.5 % (42.2-75.2); HEMATOCRIT 29.6 % (37-47); MEAN CORPUSCULAR HGB 29.4 PG (27.0-31.0); MEAN CORPUSCULAR HGB CONC 32.5 G/DL (33.0-37.0); MEAN CORPUSCULAR VOLUME 90.4 FL (81.0-99.0); PLATELET COUNT 473 /CUMM (130-400); RBC DISTRIBUTION WIDTH 22.1 % (11.5-14.5); RED BLOOD CELL CT 3.28 /CUMM (4.20-5.40); WHITE BLOOD CELL COUNT 6.1 /CUMM (4.8-10.8)
[2018-06-26 14:06] VITALS: BP 132/88
[2018-06-26 22:09] VITALS: BP 157/78
[2018-06-27] VITALS: BP 150/80
[2018-06-27 07:32] VITALS: BP 158/91
--- NOTE | 2018-06-27 07:51 | PN- Housestaff ---
Luis Velez 06/27/18 0744: Subjective Follow-up For: failure to thrive aspiration Subjective: The patient was seen and exmained today and she continues to be the same state of health. She denied any abdominal pain today and was very hungry. Review of Systems Constitutional: Reports: see HPI. Objective Last 24 Hrs of Vital Signs/I&O Vital Signs Date Time Temp Pulse Resp B/P B/P Pulse O2 O2 Flow FiO2 Mean Ox Delivery Rate 06/27 1430 98.3 97 20 144/86 100 Room Air 06/27 0957 97 Room Air 06/27 0842 69 158/91 06/27 0732 97.8 69 20 158/91 100 06/27 0000 150/80 06/27 0000 99 Room Air Room Air 06/26 2305 99 Room Air Room Air 06/26 2209 98.4 91 20 157/78 99 Room Air Intake & Output 06/27 1600 06/27 0800 06/27 0000 Intake Total 600 400 215 Output Total Balance 600 400 215 Intake, IV 400 400 200 Intake, Oral 200 15 Number 0 Bowel Movements Patient 67 lb 3 oz Weight Physical Exam General Appearance: Alert, Oriented X3, Cooperative, No Acute Distress Cardiovascular: Regular Rate, No Murmurs Lungs: Clear to Auscultation, Normal Air Movement Abdomen: Normal Bowel Sounds, Soft, No Tenderness, No Hepatospenomegaly, No Masses Neurological: Normal Speech, Strength at 5/5 X4 Ext, Normal Tone, Sensation Intact Extremities: No Clubbing, No Cyanosis, No Edema, Normal Pulses, No Tenderness/ Swelling Assessment/Plan Assessment: This is a 72-year-old female with history of Parkinson's, dementia, progressive supranuclear palsy complicated by aspiration pneumonia and recent admission for to the emergency department with hypoxia, fever, shortness of breath, cough which is been progressive for the last few days. She was seen by her PCP today and sent to ER again. A/p- 1. Fever with ? Pneumonia 2/2 Aspiration 2. Decubitous ulcer 3. Failure to thrive 4. Hypokalemia 5. Abdominal pain Failure to thrive -Patient has failed swallow study recommended. - DR Aguilar to participate Hospice care discussion with the daughter. As per Dr. Sam, she is not an ideal candidate for peg as it will not prevent aspiration, The patient is a high risk for readmission, and will discuss the possibility of LTC on Friday. -Continue home medications -We will discuss about the G-tube requirement Hypokalemia Aspiration, suspected pneumonia - F/u bood cx, - hydrate the patient- 75cc/hr D5 in 1/2 NS Decubitus ulcer - Poor overall prognosis given her comorbidities. to discuss Hopsice care with daughter. - amlodipine Abdominal pain -Patient complains of crampy abdominal pain intermittently , no distention or any physical findings or signs suggestive of any serious abdominal complications -Patient has a good appetite and has been having bowel movements every day -Bentyl prescribed for now Problem List: 1. Aspiration into lower respiratory tract 2. Decubitus ulcer 3. Failure to thrive 4. Protein-energy malnutrition Pain Ratin Pain Location: none Pain Goal: Remain pain free Pain Plan: none Tomorrow's Labs & Rationales: cbc, bep, mg Miguelina,Camilla 06/27/18 1210: Attending MD Review Statement Attending Statement Attending MD Statement: examined this patient, discuss w/resident/PA/GAME BIRD FARMER, agreed w/resident/PA/GAME BIRD FARMER, discussed with family, reviewed EMR data (avail), discussed with nursing, discussed with case mgmt, reviewed images, amended to note Attending Assessment/Plan: The patient was seen and discussed with house staff, nursing, and case management. Appreciate Palliative Care input. Dr. Sam. Continue current care..
[2018-06-27 08:35] LABS: ABSOLUTE BASOPHIL COUNT 0 /CUMM (0.0-0.2); ABSOLUTE EOSINOPHIL COUNT 0.1 /CUMM (0.0-0.7); ABSOLUTE GRANULOCYTE CT 3.9 /CUMM (1.4-6.5); ABSOLUTE LYMPH COUNT 0.9 /CUMM (1.2-3.4); ABSOLUTE MONOCYTE COUNT 0.5 /CUMM (0.10-0.60); BASOPHIL % 0.2 % (0.0-2.0); EOSINOPHIL % 1.1 % (0-5); GRANULOCYTE % 73.5 % (42.2-75.2); HEMATOCRIT 31.9 % (37-47); MEAN CORPUSCULAR HGB 29.7 PG (27.0-31.0); MEAN CORPUSCULAR HGB CONC 32.8 G/DL (33.0-37.0); MEAN CORPUSCULAR VOLUME 90.5 FL (81.0-99.0); MEAN PLATELET VOLUME 7.5 FL (7.4-10.4); PLATELET COUNT 477 /CUMM (130-400); RBC DISTRIBUTION WIDTH 20.9 % (11.5-14.5); RED BLOOD CELL CT 3.52 /CUMM (4.20-5.40)
[2018-06-27 10:00] LABS: WHITE BLOOD CELL COUNT 5.3 /CUMM (4.8-10.8)
[2018-06-27 14:30] VITALS: BP 144/86
[2018-06-27 21:05] VITALS: BP 136/84
[2018-06-28 06:52] VITALS: BP 136/67
--- NOTE | 2018-06-28 07:41 | PN- Housestaff ---
Luis Velez 06/28/18 0741: Subjective Follow-up For: failure to thrive Subjective: Patient was seen and examined thios morning . Patient continues to be in the same state of health. Review of Systems Constitutional: Reports: see HPI. Objective Last 24 Hrs of Vital Signs/I&O Vital Signs Date Time Temp Pulse Resp B/P B/P Pulse O2 O2 Flow FiO2 Mean Ox Delivery Rate 06/28 0815 80 136/67 06/28 0800 99 Room Air 06/28 0652 97.4 80 17 136/67 99 06/27 2105 97.7 86 16 136/84 98 06/27 1430 98.3 97 20 144/86 100 Room Air Intake & Output 06/28 1600 06/28 0806/28 0000 Intake Total 400 500 Output Total Balance 400 500 Intake, IV 400 500 Patient 67 lb 2 oz Weight Physical Exam General Appearance: Alert, Oriented X3, Cooperative, No Acute Distress Cardiovascular: Regular Rate, No Murmurs Lungs: Clear to Auscultation, Normal Air Movement Abdomen: Normal Bowel Sounds, Soft, No Tenderness, No Hepatospenomegaly, No Masses Neurological: Normal Speech, Strength at 5/5 X4 Ext, Normal Tone, Sensation Intact Current Medications: Current Medications Sig/Tootie Start time Last Medication Dose Route Stop Time Status Admin Acetaminophen 650 MG Q6P PRN 06/23 2130 AC 06/26 PO 0332 Acetaminophen 1,000 MG Q6P PRN 06/23 2130 AC 06/27 IV 2057 Amlodipine Besylate 5 MG DAILY 06/24 09 AC 06/28 PO 0815 Amoxicillin/ 500 MG Q12 06/25 2100 AC 06/28 Clavulanate Potassium PO 0814 Artificial Tears 2 GTT TID 06/23 213 AC 06/28 OPH 0815 Dextrose/Sodium 1,000 ML Q20H 06/26 1615 AC 06/28 Chloride IV 0530 Dicyclomine HCl 20 MG 4 TIMES/DAY PRN 06/26 1014 AC PO Ferrous Sulfate 325 MG DAILY 06/24 900 AC 06/28 PO 0815 Polyethylene Glycol 17 GM AT BEDTIME PRN 06/23 2145 AC PO Senna/Docusate Sodium 1 TAB AT BEDTIME PRN 06/23 214 AC PO Last 24 Hrs of Lab/Hermes Results Last 24 Hrs of Labs/Mics: Laboratory Tests 06/28/18 0747: Anion Gap 6, Estimated GFR > 60, BUN/Creatinine Ratio 27.5 H Assessment/Plan Assessment: This is a 72-year-old female with history of Parkinson's, dementia, progressive supranuclear palsy complicated by aspiration pneumonia and recent admission for to the emergency department with hypoxia, fever, shortness of breath, cough which is been progressive for the last few days. She was seen by her PCP today and sent to ER again. A/p- 1. Fever with ? Pneumonia 2/2 Aspiration 2. Decubitous ulcer 3. Failure to thrive 4. Hypokalemia 5. Abdominal pain Failure to thrive -Patient has failed swallow study recommended. - DR Aguilar to participate Hospice care discussion with the daughter. As per Dr. Sam, she is not an ideal candidate for peg as it will not prevent aspiration, The patient is a high risk for readmission, and will discuss the possibility of LTC on Friday. -Continue home medications -We will discuss about the G-tube requirement Hypokalemia Aspiration, suspected pneumonia - F/u bood cx, - hydrate the patient- 75cc/hr D5 in 1/2 NS Decubitus ulcer - Poor overall prognosis given her comorbidities. to discuss Hopsice care with daughter. - amlodipine Abdominal pain Patient complains of crampy abdominal pain, no distention or any physical findings or signs suggestive of any serious abdominal complications Patient has a good appetite and has been having bowel movements every day Bentyl prescribed for now Problem List: 1. Aspiration into lower respiratory tract Pain Ratin Pain Location: NONE Pain Goal: Remain pain free Pain Plan: none Tomorrow's Labs & Rationales: none Camilla Mcintyre 06/28/18 1249: Attending MD Review Statement Attending Statement Attending MD Statement: examined this patient, discuss w/resident/PA/TELEPHONE BETTING CLERK, agreed w/resident/PA/TELEPHONE BETTING CLERK, discussed with family, reviewed EMR data (avail), discussed with nursing, discussed with case mgmt, reviewed images, amended to note Attending Assessment/Plan: Pateint sleeping comfortably in bed with no acute distress. Continue current care...
[2018-06-28 15:06] VITALS: BP 140/72
[2018-06-28 20:51] VITALS: BP 126/68
[2018-06-29 06:51] VITALS: BP 133/83
--- NOTE | 2018-06-29 07:41 | PN- Housestaff ---
Luis Velez 06/29/18 0741: Subjective Follow-up For: aspiration 2/2 supranuclear palsy vs parkinsons decubitous ulcer Subjective: The patient was seen and examined today, no acute overnighty events. She feels better, abdomninal pain has resolved, she said she wanted to step out. The daughter was here last night and reported to the night team that her decubitous ulcer has been worsening with the duoderm dressing and asked for dry gauge dressing. Review of Systems Constitutional: Reports: see HPI. Objective Last 24 Hrs of Vital Signs/I&O Vital Signs Date Time Temp Pulse Resp B/P B/P Pulse O2 O2 Flow FiO2 Mean Ox Delivery Rate 06/29 08 Room Air 06/29 0651 99.1 76 20 133/83 100 Room Air 06/29 0000 99 Room Air 06/28 2051 97.6 91 16 126/68 99 Room Air 06/28 1600 Room Air 06/28 1506 97.9 93 20 140/72 94 Room Air Intake & Output 06/29 1600 06/29 0800 06/29 0000 Intake Total 240 550 Output Total Balance 240 550 Intake, IV 400 Intake, Oral 240 150 Number 1 1 Bowel Movements Patient 67 lb Weight Physical Exam General Appearance: Alert, Oriented X3, Cooperative, No Acute Distress Cardiovascular: Normal S1, Normal S2 Lungs: Clear to Auscultation, Normal Air Movement Abdomen: Normal Bowel Sounds, Soft, No Tenderness, No Hepatospenomegaly, No Masses Neurological: Normal Speech, Strength at 5/5 X4 Ext, Normal Tone, Sensation Intact Extremities: No Clubbing, No Cyanosis, No Edema, Normal Pulses, No Tenderness/ Swelling Other Physical Findings: Decubitous ulcer- Patient had a WCE decubitous ulcer of 2.5* 2.5 dimension, that has slightly enalarged to abut 2*3 cm . AT the time of examination, the dressing was soiled and wet . Current Medications: Current Medications Sig/Tootie Start time Last Medication Dose Route Stop Time Status Admin Acetaminophen 650 MG Q6P PRN 06/23 2130 AC 06/26 PO 033 Acetaminophen 1,000 MG Q6P PRN 06/23 2130 AC 06/27 IV 205 Amlodipine Besylate 5 MG DAILY 06/24 900 AC 06/29 PO 08 Amoxicillin/ 500 MG Q12 06/25 2100 AC 06/29 Clavulanate Potassium PO 06/30 0600 0821 Artificial Tears 2 GTT TID 06/23 2139 AC 06/29 OPH 0821 Dextrose/Sodium 1,000 ML Q20H 06/26 1615 06/29 Chloride IV 0037 Dicyclomine HCl 20 MG 4 TIMES/DAY PRN 06/26 1014 AC PO Ferrous Sulfate 325 MG DAILY 06/24 0900 AC 06/29 PO 0821 Patient Medication 1 ED ONE ONE 06/29 1315 OH Teaching ED 06/29 1316 Polyethylene Glycol 17 GM AT BEDTIME PRN 06/23 214 AC PO Senna/Docusate Sodium 1 TAB AT BEDTIME PRN 06/23 2145 AC 06/28 PO 2049 Assessment/Plan Assessment: This is a 72-year-old female with history of Parkinson's, dementia, progressive supranuclear palsy complicated by aspiration pneumonia and recent admission for to the emergency department with hypoxia, fever, shortness of breath, cough which is been progressive for the last few days. She was seen by her PCP today and sent to ER again. A/p- 1. Fever with ? Pneumonia 2/2 Aspiration 2. Decubitous ulcer 3. Failure to thrive 4. Hypokalemia 5. Abdominal pain Failure to thrive -Patient has failed swallow study recommended. - Had a family meeting today , daughter agrees to taking her mother home tomorrow -The patient is a high risk for readmission. -Continue home medications -will anticiopate a discharge tomorrow Hypokalemia-resolved, not on any medications for repletion Aspiration, suspected pneumonia stop PO augmentin - F/u bood cx negative - hydrate the patient- 75cc/hr D5 in 1/2 NS Decubitus ulcer - daughter requested for dry gauge dressing, but wound consult will be folllowed regarding this issue. - Poor overall prognosis given her comorbidities. Abdominal pain abdominal pain resolved, on bentyl prn Patient has a good appetite and has been having bowel movements every day Problem List: 1. Decubitus ulcer 2. Aspiration into lower respiratory tract 3. Protein-energy malnutrition 4. Failure to thrive 5. Functional quadriplegia Pain Ratin Pain Location: none Pain Goal: Remain pain free Pain Plan: as discussed Tomorrow's Labs & Rationales: none James Clifton MD 06/29/18 1437: Attending MD Review Statement Attending Statement Attending MD Statement: examined this patient, discuss w/resident/PA/TURNAROUND ENGINEER, agreed w/resident/PA/TURNAROUND ENGINEER, reviewed EMR data (avail), discussed with nursing, discussed with case mgmt, amended to note Attending Assessment/Plan: Patient seen and examined. Chart reviewed. Completed the course of antibiotic therapy for aspiration pneumonia. Currently afebrile hemodynamically stable. She is on pured diet as recommended by speech therapist. However she is only eating about 25% of her meals. Daughter is present at bedside. Her biggest concern is that patient has decubitus ulcer is growing in size. Apparently during last hospitalization presented with a stage II ulceration. She reports that during the hospitalization the decubitus ulcer got bigger in size. It is now been documented as a stage III ulceration at the time of admission during this present hospitalization. She is of the impression of the prescribed treatment during the last hospitalization as contributed to the worsening ulceration. She would like to continue care as she was doing at home prior to the patient being hospitalized. She does not wish for the patient to be hospital and even inquired about receiving antibiotic therapy at home should she develop another episode of pneumonia. I did explain to the patient's daughter is very clear terms that patient would most likely aspirated again in the future and again developed a pneumonia. She is aware that her mother's condition with regards to her swallowing is unlikely to improve will most likely will worsen she will likely experience even more frequent episodes of pneumonia. She is okay with this and just wants to take her mother home. She will be medically necessary arrangements for her mother to be able to come home tomorrow. Patient will be discharged home tomorrow in the company of her daughter. She is open to receiving treatment in place and does not wish to be hospitalized. Will discuss with the palliative care service and make arrangements for home visits for the patient.
--- NOTE | 2018-06-29 11:00 | Discharge Summary ---
Visit Information Visit Dates Admission Date: 06/23/18 Discharge Date: 06/30/18 Hospital Course Course Attending Physician: James Clifton MD Primary Care Physician: Kirill HANSON,[facility] Course: This is a 72-year-old female with history of Parkinson's, dementia, progressive supranuclear palsy complicated by aspiration pneumonia and recent admission for to the emergency department with hypoxia, fever, shortness of breath, cough which is been progressive for the last few days. She was seen by her PCP today and sent to ER again. A/p- 1. Fever with ? Pneumonia 2/2 Aspiration 2. Decubitous ulcer 3. Failure to thrive 4. Hypokalemia 5. Abdominal pain Failure to thrive, SUpranuclear palsy affecting swallowing and Functional Quadriplegia requiring complete care. - Patient is completely dependent for basic Daily activities. -Patient has failed swallow study recommended - IV fluids to be given for supporting pureed diet. - daughter agrees to taking her mother home , It was very difficult to get to hold a meeting with the daughter. and she is never inclined towards recommended care for her mother. -The patient is a high risk for readmission. -Continue home medications Hypokalemia-treated and resolved, not on any medications for repletion Aspiration, suspected pneumonia -Patient did not have a pneumonia fiunding or any consolidation of lung in the CXR -She was started on Unasyn and given a 7 day course of weight adjusted Unasyn for any impending Aspiration pneumonia. - blood cx negative - hydrated the patient- 75cc/hr D5 in 1/2 NS Decubitus ulcer -Patient will be discharged today. - Poor overall prognosis given her comorbidities. Abdominal pain abdominal pain resolved, on bentyl prn Patient has a good appetite and has been having bowel movements every day Allergies: Coded Allergies: aspirin (GI BLEED 06/18/18) nitrofurantoin (From MACROBID) (NAUSEA 05/23/18) Disposition Summary Disposition Principal Diagnosis: Failure to thrive Functional Quadriplegia requiring complete care for daily activities Aspiration into lower respiratory tract Additional Diagnosis: suprnuclear palsy VS parkinsons Discharge Disposition: home or self care Discharge Instructions General Discharge Information Code Status: Full Code Patient's Diet: Pureed only, No liquids for risk of aspiration Patient's Activity: as tolerated Follow-Up Instructions/Appts: Wound care- decubitous ulcer- duoderm dressing recommended Pureed diet only Please follow up with PCP as needed. Medications at Discharge Discharge Medications: Continue taking these medications: Ferrous Sulfate (Ferrous Sulfate) 325 MG (65 MG IRON) TABLET. 325 Milligram ORAL DAILY Qty = 60 Instructions: Please take as directed. Comments: Last Taken: 07/01/18 Time: 0845 AM Docusate Sodium (Colace) 100 MG CAPSULE 1 Capsule ORAL TWICE DAILY as needed for CONSTIPATION Qty = 30 Instructions: Please take as directed. Comments: NOT GIVEN IN HOSPITAL Polyethylene Glycol 3350 (Miralax) 17 GRAM/DOSE POWDER 17 Gram ORAL DAILY as needed for CONSTIPATION Qty = 30 Instructions: Please take as directed. Comments: NOT GIVEN IN HOSPITAL Sennosides (Senna) 8.6 MG TABLET 2 Tablet ORAL DAILY as needed for CONSTIPATION Qty = 60 Instructions: Please take as directed. Comments: Last Taken: 06/28/18 Time: 8:30 PM Starch (Thick-It) 1 EACH POWD.PACK 1 Packet ORAL WITH MEALS Qty = 120 Instructions: Mix with liquids. Comments: BREAKFAST Acetaminophen (Pain & Fever) 325 MG TABLET 2 Tablet ORAL as needed for PAIN Comments: IV TYLENOL 1000 MG GIVEN 06/29/18 @ 11:50 PM Budesonide (Budesonide) (Unknown Strength) AMPUL.NEB Unknown Dose Inhale Solution as needed for RESP. Comments: NOT GIVEN IN HOSPITAL Albuterol Sulfate (Albuterol Sulfate) 2.5 MG/3 ML (0.083 %) VIAL.NEB 1 Inhalation Inhale Solution NEEDED as needed for RESP. Comments: NOT GIVEN IN HOSPITAL. Dextran 70/Hypromellose (Natural Balance Tears Eye Drop) (Unknown Strength) DROPS Unknown Dose Both Eyes as needed for DRY EYES Comments: Last Taken:07/01/18 Time:0845 AM Amlodipine Besylate (Norvasc) 5 MG TABLET 1 Tablet ORAL DAILY Qty = 30 Comments: Last Taken:07/01/18 Time:0845 AM Copies To: Kirill HANSON,Guadalupe; Flaco HANSON,Rob Xiong
[2018-06-29 14:14] VITALS: BP 140/64
--- NOTE | 2018-06-29 16:26 | PN- Palliative Care ---
Subjective Subjective: Patient remained in hospital over weekend. Case discussed with housestaff, attending physician. Discharge to home is planned for next 24-48h. I had a long telephone call with patient's daughter, Yoselin Roque on Friday. She relayed to me that there was not a smooth transition to home nursing care. It is unclear whether this was because of misunderstanding on the part of the patient's daughter - who was looking for hospice services to provide equipment or if she understood that the plan was for a traditional home nursing program. The patient was referred for hospital admission upon her first visit to PCP following discharge 1 month ago. I counseled her daughter that patient's underlying problem of parkinsonism on the basis of PSP is irreversible and relentless, and that her care is of a supportive nature. She requires frequent turning and positioning to reduced the development of new decubitus ulcers. Wound care can be provided by aggressive home nursing and may help to reduce recurrent hospitalizations. Mrs. Butts has expressed to me and her daughter that she does not wish to be hospitalized. To that end I have suggested tighter coordination between medical services and home nursing. This may be accomplished through the help of the geriatrics and palliative care team directly interfacing with home nursing once patient is discharged. Review of Systems: no complaints at this time Objective Last 24 Hrs of Vital Signs/I&O Vital Signs Date Time Temp Pulse Resp B/P B/P Pulse O2 O2 Flow FiO2 Mean Ox Delivery Rate 06/29 1414 98.8 90 19 140/64 97 Room Air 06/29 0800 Room Air 06/29 0651 99.1 76 20 133/83 100 Room Air 06/29 0000 99 Room Air 06/28 2051 97.6 91 16 126/68 99 Room Air Intake & Output 06/29 1600 06/29 0800 06/29 0000 Intake Total 650 240 550 Output Total Balance 650 240 550 Intake, IV 400 400 Intake, Oral 250 240 150 Number 2 1 Bowel Movements Patient 67 lb Weight Physical Exam: elderly female in bed, NAD awake and alert. Speech fluent limited overall mobility Current Medications Current Medications: Current Medications Sig/Tootie Start time Last Medication Dose Route Stop Time Status Admin Acetaminophen 650 MG Q6P PRN 06/23 2130 AC 06/26 PO 0332 Acetaminophen 1,000 MG Q6P PRN 06/23 2130 AC 06/27 IV 2056 Amlodipine Besylate 5 MG DAILY 06/24 09 AC 06/29 PO 0821 Amoxicillin/ 500 MG Q12 06/25 2100 AC 06/29 Clavulanate Potassium PO 06/30 0600 0821 Artificial Tears 2 GTT TID 06/23 2139 AC 06/29 OPH 1354 Dextrose/Sodium 1,000 ML Q20H 06/26 1615 AC 06/29 Chloride IV 0037 Dicyclomine HCl 20 MG 4 TIMES/DAY PRN 06/26 1014 AC PO Ferrous Sulfate 325 MG DAILY 06/24 900 AC 06/29 PO 0821 Patient Medication 1 ED ONE ONE 06/29 1315 DC Teaching ED 06/29 1316 Polyethylene Glycol 17 GM AT BEDTIME PRN 06/23 214 AC PO Senna/Docusate Sodium 1 TAB AT BEDTIME PRN 06/23 2145 AC 06/28 PO 2049 Assessment/Plan Assessment 72F w/ failure to thrive, PSP, dysphagia, multiple decubitus ulcers Patient's Condition: stable Prognosis: guarded Is Patient Decisional? limited Case Discussed With: patient, house staff, attending, case management Goals of Care: rehabilitative Treatment Preferences: 1. Patient may benefit from direct interface between geriatrics and visiting nurse. Please provide my telephone number for visiting nurse to contact me regarding home care plan of care and care plan oversight. If patient is able to be seen by PCP (presumably after several weeks of stability), then care may transfer back to PCP. 2. Goals are to provide care in place at home to the best extent possible. Attending MD Review Statement Attending Statement Attending Assessment/Plan: 72F w/ severe frailty in setting of advacing PSP, chronic back decubitus ulcer, dysphagia, recurrent aspiration. Patient was see originally by me 1 month ago during her first admission to . At that time, I (along with several others) participated in extensive discussion during which the patient's daughter, Yoselin, shared a complex history surrounding the patient's original hospitalization in [place] -> [facility] (several months) -> home hospice (appr 1 wk), at which time patient was rehospitialized at . At that time, goals of care were to promote patient's comfort, but at the same time, daughter was unable/unwilling to place any limitations on patient's medical treatments. Dr. Deras and myself had frequent interactions with her to explain medically indicated and appropriate inteventions, namely treatments the team recommended and offered, and those that were not being offered. The patient has demonstrated ongoing dysphagia and is at risk for aspiration. It has been explained to daughter, granddaughter, patient that a gastrostomy tube offers little in reducing the chances of aspiration pneumonia (and might worsen risks as well) as patient is most likely aspirating oral secretions on an ongoing basis. We originally advised and educated on techniques to optimize safety of oral intake - pureed foods, oral hygiene, etc. We also advised on patient's poor prognosis given her progressive condition and the presence of a decubitus ulcer. It is unclear at this time what level of care patient was recieving at home - and perhaps this might be an avenue to pursue. The patient's current condition does not appear significantly different from when she was discharged, that being said, treatment at home, might have been an option in this case - however, it will be essential to ensure that she has adequate nursing care and other resources for this to be an acceptable opion.
[2018-06-29 21:08] VITALS: BP 132/66
[2018-06-30 06:19] VITALS: BP 149/73
--- NOTE | 2018-06-30 06:33 | PN- Housestaff ---
Luis Velez 06/30/18 0632: Subjective Follow-up For: aspiration 2/2 supranuclear palsy vs parkinsons decubitous ulcer Subjective: The patient was seen and examined today, she was smiling, no acute overnighty events. She feels better, abdomninal pain has resolved, she said she wanted to step out. Review of Systems Constitutional: Reports: see HPI. Objective Last 24 Hrs of Vital Signs/I&O Vital Signs Date Time Temp Pulse Resp B/P B/P Pulse O2 O2 Flow FiO2 Mean Ox Delivery Rate 06/30 1425 98.7 88 18 140/83 100 Room Air 06/30 1020 84 126/70 06/30 0619 98.0 78 18 149/73 100 06/30 0000 100 Room Air 06/29 2108 98.7 88 18 132/66 98 Room Air Intake & Output 06/30 1600 06/30 0800 06/30 0000 Intake Total 1020 240 560 Output Total Balance 1020 240 560 Intake, IV 300 310 Intake, Oral 720 240 250 Number 1 1 4 Bowel Movements Patient 67 lb 2 oz Weight Physical Exam General Appearance: Alert, Oriented X3, Cooperative, No Acute Distress Cardiovascular: Regular Rate, No Murmurs Lungs: Clear to Auscultation, Normal Air Movement Abdomen: Normal Bowel Sounds, Soft, No Tenderness, No Hepatospenomegaly, No Masses Neurological: Normal Speech, Strength at 5/5 X4 Ext, Normal Tone, Sensation Intact Assessment/Plan Assessment: This is a 72-year-old female with history of Parkinson's, dementia, progressive supranuclear palsy complicated by aspiration pneumonia and recent admission for to the emergency department with hypoxia, fever, shortness of breath, cough which is been progressive for the last few days. She was seen by her PCP today and sent to ER again. A/p- 1. Fever with ? Pneumonia 2/2 Aspiration 2. Decubitous ulcer 3. Failure to thrive 4. Hypokalemia 5. Abdominal pain Failure to thrive, Functional quadriplegia requiring complete care -Patient has failed swallow study, Is dependent on basic daily activities. recommended. - daughter agrees to taking her mother home today -The patient is a high risk for readmission. -Continue home medications - will discharge the patient today Hypokalemia-resolved, not on any medications for repletion Aspiration, suspected pneumonia stop PO augmentin - F/u bood cx negative - hydrate the patient- 75cc/hr D5 in 1/2 NS Decubitus ulcer -Patient will be discharged today. - Poor overall prognosis given her comorbidities. Abdominal pain abdominal pain resolved, on bentyl prn Patient has a good appetite and has been having bowel movements every day Problem List: 1. Supranuclear palsy 2. Decubitus ulcer 3. Aspiration into lower respiratory tract 4. Functional quadriplegia 5. Failure to thrive 6. Severe malnutrition Pain Ratin Pain Location: none Pain Goal: Remain pain free Pain Plan: none Tomorrow's Labs & Rationales: none Etienne HANSON,James 06/30/18 1005: Attending MD Review Statement Attending Statement Attending MD Statement: examined this patient, discuss w/resident/PA/MIGRATION SPECIALIST, agreed w/resident/PA/MIGRATION SPECIALIST, reviewed EMR data (avail), discussed with nursing, discussed with case mgmt, amended to note Attending Assessment/Plan: No new issues overnight. She is actually more alert this morning and a little more communicative. She denies any pain. She is not in respiratory distress. She was evaluated by the chronic specialist today. She is medically stable to be discharged today. Her daughter does not wish to pursue hospice care at this time we will would like to care for her mother at home as much as he is physically possible. The palliative care service has volunteered to follow-up with her at home to help provide necessary care. She is completed antibiotic course. She remains afebrile leukocytosis. It is noted that chest x-ray on admission showed no acute infectious process.
--- NOTE | 2018-06-30 09:01 | PN- Wound Care ---
Subjective Subjective: Patient remains noncommunicative on a [place] bed wound appears to be healing Objective Vital Signs and I&Os Vital Signs Result Date Time Pulse Ox 100 06/30 619 B/P 149/73 06/30 619 Temp 98.0 06/30 619 Pulse 78 06/30 0619 Resp 18 06/30 619 O2 Delivery Room Air 06/30 0000 O2 Flow Rate Room Air 06/27 0000 Intake & Output 06/30 0000 06/29 1600 06/29 0800 Intake Total 560 650 240 Output Total Balance 560 650 240 Intake, IV 310 400 Intake, Oral 250 250 240 Number 4 2 Bowel Movements Patient 67 lb Weight Physical Exam: There is a small residual stage III pressure ulcer of the coccyx approximately 1 x 1 cm ffamily reportedly refuses DuoDERM ccan utilize xeroform and nonadherent dressing with continued offloading Impression/Plan Impression/Plan Impression/Plan: 72-year-old with pressure ulcer present on admission which appears to be slowly improving
[2018-06-30 14:25] VITALS: BP 140/83
[2018-06-30 22:43] VITALS: BP 133/80
[2018-07-01 07:03] VITALS: BP 136/84
--- NOTE | 2018-07-01 07:23 | PN- Housestaff ---
Luis Velez 07/01/18 0723: Subjective Follow-up For: failure to thrive aspiration decubitous ulcer Subjective: The patienty was seen and examined today. No acute overnight events. She complains of Right ankle pain without any physical findings such as swelling / erythema etc. She was thirsty because of the pureed diet and asking for coffee. She was counselled and told she cannot get fluids and said she got coffee yesterday. Review of Systems Constitutional: Reports: see HPI. Objective Last 24 Hrs of Vital Signs/I&O Vital Signs Date Time Temp Pulse Resp B/P B/P Pulse O2 O2 Flow FiO2 Mean Ox Delivery Rate 07/01 0844 74 136/84 07/01 0703 98.7 74 16 136/84 99 Room Air 06/30 2243 98.4 81 18 133/80 99 Room Air 06/30 1425 98.7 88 18 140/83 100 Room Air 06/30 1020 84 126/70 Intake & Output 07/01 1600 07/01 0800 07/01 0000 Intake Total 460 710 Output Total Balance 460 710 Intake, IV 400 310 Intake, Oral 60 400 Number 1 2 Bowel Movements Patient 66 lb 9 oz Weight Weight Susy Lift Measurement Method Physical Exam General Appearance: Alert, Oriented X3, Cooperative, No Acute Distress Cardiovascular: Regular Rate, No Murmurs Lungs: Clear to Auscultation, Normal Air Movement Abdomen: Normal Bowel Sounds, Soft, No Tenderness, No Hepatospenomegaly, No Masses Neurological: Normal Speech, Strength at 5/5 X4 Ext, Normal Tone, Sensation Intact Extremities: No Clubbing, No Cyanosis, No Edema, Normal Pulses, No Tenderness/ Swelling Current Medications: Current Medications Sig/Tootie Start time Last Medication Dose Route Stop Time Status Admin Acetaminophen 650 MG Q6P PRN 06/23 2130 AC 06/26 PO 0332 Acetaminophen 1,000 MG Q6P PRN 06/23 2130 AC 06/29 IV 2349 Amlodipine Besylate 5 MG DAILY 06/24 900 AC 07/01 PO 0844 Artificial Tears 2 GTT TID 06/23 2139 AC 07/01 OPH 0844 Dextrose/Sodium 1,000 ML Q20H 06/26 1615 DC 06/30 Chloride IV 1711 Dicyclomine HCl 20 MG 4 TIMES/DAY PRN 06/26 1014 AC PO Ferrous Sulfate 325 MG DAILY 06/24 900 AC 07/01 PO 0844 Polyethylene Glycol 17 GM AT BEDTIME PRN 06/23 2145 AC PO Senna/Docusate Sodium 1 TAB AT BEDTIME PRN 06/23 2145 AC 06/28 PO 2049 Assessment/Plan Assessment: This is a 72-year-old female with history of Parkinson's, dementia, progressive supranuclear palsy complicated by aspiration pneumonia and recent admission for to the emergency department with hypoxia, fever, shortness of breath, cough which is been progressive for the last few days. She was seen by her PCP and sent to ER again. A/p- 1. Fever with ? Pneumonia 2/2 Aspiration 2. Decubitous ulcer 3. Failure to thrive 4. Hypokalemia 5. Abdominal pain Failure to thrive, Functional quadriplegia requiring complete care -Patient has failed swallow study, Is dependent for basic daily activities. recommended. -daughter agrees to taking her mother home today -The patient is a high risk for readmission. -Continue home medications -Patient is still here due to case management issues abnd will try to discharge the patient today Hypokalemia-resolved, not on any medications for repletion Aspiration, suspected pneumonia stop PO augmentin -F/u bood cx negative -hydrate the patient- 75cc/hr D5 in 1/2 NS Decubitus ulcer -Patient will be discharged today. -Poor overall prognosis given her comorbidities. Abdominal pain abdominal pain resolved, on bentyl prn Patient has a good appetite and has been having bowel movements every day Problem List: 1. Aspiration into lower respiratory tract 2. Decubitus ulcer 3. Supranuclear palsy 4. Parkinson disease 5. Severe malnutrition 6. Functional quadriplegia 7. Failure to thrive Pain Ratin Pain Location: none Pain Goal: Remain pain free Pain Plan: none Tomorrow's Labs & Rationales: none James Clifton MD 07/01/18 1215: Attending MD Review Statement Attending Statement Attending MD Statement: examined this patient, discuss w/resident/PA/MATTRESS FINISHER, agreed w/resident/PA/MATTRESS FINISHER, reviewed EMR data (avail), discussed with nursing, discussed with case mgmt, amended to note Attending Assessment/Plan: Patient seen and examined. Resting comfortably not in acute distress. Although chronically ill looking she is alert and oriented. She was asking to drink coffee this morning. Denied any pain. Apparently her daughter was unable to take her home yesterday because she has not made adequate arrangements for the patient to return home. She is hopeful that she will have all the adequate resources in place for her today and then take the patient home. Case management service is in contact with her to help with discharge planning.
[2018-07-01 14:18] VITALS: BP 138/72
== END 2018-07-01 17:35 | disposition home health service (06) | DRG 177 ==
LOC: DELPENDDIS → ERH 15:34 → 2NB 17:47 → ERHI 17:47 → ENRESERV 18:06 → ENTRNSPT 19:29 → EDTRNSPTSTS 19:32 → 2NB 19:42 → CMPTRNSPT 19:52 → 2NB 06-24 08:32 → ENPENDDIS 06-30 08:52 → 2NB 07-01 17:35
PROVIDERS: Internal Medicine; Student in an Organized Health Care Education/Training Program
DX: J69.0 Pneumonitis due to inhalation of food and vomit (principal); L89.153 Pressure ulcer of sacral region, stage 3; R53.2 Functional quadriplegia; Z68.1 Body mass index [BMI] 19.9 or less, adult; R64 Cachexia; G23.1 Progressive supranuclear ophthalmoplegia [Steele-Richardson-Olszewski]; E44.1 Mild protein-calorie malnutrition; Z51.5 Encounter for palliative care; R50.9 Fever, unspecified; R06.02 Shortness of breath; R00.0 Tachycardia, unspecified; G20 Parkinson's disease; F02.80 Dementia in other diseases classified elsewhere, unspecified severity, without behavioral disturbance, psychotic disturbance, mood disturbance, and anxiety; I50.9 Heart failure, unspecified; R32 Unspecified urinary incontinence; D47.3 Essential (hemorrhagic) thrombocythemia; D64.9 Anemia, unspecified; R15.9 Full incontinence of feces; R62.7 Adult failure to thrive; R13.10 Dysphagia, unspecified; E87.6 Hypokalemia; J44.9 Chronic obstructive pulmonary disease, unspecified; Z88.6 Allergy status to analgesic agent; Z79.51 Long term (current) use of inhaled steroids; B95.2 Enterococcus as the cause of diseases classified elsewhere
CPT/HCPCS: 2NBSP; 36415; 36592; 71046; 81001; 82436; 87040; 87071; 87086; 87147; 93005; 93010; 96374; 96375; J0131; J0713; J3370; J3490; J7040; J7042

== ENCOUNTER 2018-07-06 11:27 | Emergency (ER) | payer OTHER ==
[~2018-07-06] VITALS: Ht 170.2 cm; Wt 35.4 kg
--- NOTE | 2018-07-06 12:05 | ED DYSPNEA/ASTHMA COMPLAINT ---
History of Present Illness General Chief Complaint: Dyspnea (COPD, CHF, Other) Stated Complaint: BIBA COUGH, DIFF BREATHING Source: patient, family Exam Limitations: dementia Vital Signs & Intake/Output Vital Signs & Intake/Output Vital Signs Date Time Temp Pulse Resp B/P B/P Pulse O2 O2 Flow FiO2 Mean Ox Delivery Rate 07/06 1754 97.1 92 18 156/71 98 Room Air 07/06 1546 98.0 82 18 138/75 98 Room Air 07/06 1418 86 18 157/82 100 Nasal 1.0L Cannula 07/06 1403 98.4 85 18 146/79 94 Room Air 07/06 1140 99 Room Air Room Air 07/06 1130 97.1 78 18 164/83 99 Room Air Room Air Allergies Coded Allergies: aspirin (GI BLEED 06/18/18) nitrofurantoin (From MACROBID) (NAUSEA 05/23/18) Reconcile Medications Acetaminophen (Pain & Fever) 325 MG TABLET 2 TAB PO PRN PAIN (Reported) Albuterol Sulfate 2.5 MG/3 ML (0.083 %) VIAL.NEB 1 INH INH/LISA NEEDED PRN RESP. (Reported) Amlodipine Besylate (Norvasc) 5 MG TABLET 1 TAB PO DAILY HTN Budesonide (Unknown Strength) AMPUL.NEB (Unknown Dose) INH/LISA PRN RESP. ( Reported) Dextran 70/Hypromellose (Natural Balance Tears Eye Drop) (Unknown Strength) DROPS (Unknown Dose) OU PRN DRY EYES (Reported) Docusate Sodium (Colace) 100 MG CAPSULE 1 CAP PO BID PRN CONSTIPATION Please take as directed. Ferrous Sulfate 325 MG (65 MG IRON) TABLET 1 TAB PO TID IRON, VITAMIN ( Reported) Polyethylene Glycol 3350 (Miralax) 17 GRAM/DOSE POWDER 17 GM PO DAILY PRN CONSTIPATION Please take as directed. Sennosides (Senna) 8.6 MG TABLET 2 TAB PO DAILY PRN CONSTIPATION Please take as directed. Starch (Thick-It) 1 EACH POWD.PACK 1 PAC PO WITH MEALS Aspiration Risk Mix with liquids. Triage Note: BIBA FROM HOME FOR C/O COUGH AND CONGESTION, CONGESTED COUGH NOTED, SCATTERED RHONCHI NOTED UPON ARRIVAL. Triage Nurses Notes Reviewed? yes HPI: Patient presents for evaluation of a loose cough over the past few days. The cough has been intermittent but seems to be generally getting worse. The patient's daughter tried to check a pulse oximetry at home and it showed 57%. Unfortunately when the paramedics arrived they obtained a 98% oxygen saturation. The daughter states that the patient has had no fever, cold symptoms, dyspnea or leg swelling. She was admitted to the hospital last month for a similar issue with coughing secondary to pneumonia. Past History Travel History Traveled to [place] past 21 day No Medical History Any Pertinent Medical History? see below for history Neurological: dementia, Parkinson's disease, Prog. Super Nuc Palsy EENT: NONE Cardiovascular: CHF Respiratory: COPD Gastrointestinal: NONE Hepatic: NONE Renal: urinary incontinence Musculoskeletal: NONE Psychiatric: NONE Endocrine: NONE Blood Disorders: NONE Cancer(s): NONE INSURANCE OFFICE SUPERVISOR/Reproductive: NONE History of MRSA: No History of VRE: No History of CDIFF: No Surgical History Surgical History: non-contributory Psychosocial History Who do you live with Daughter Services at Home Home Health Aide, Nursing What is your primary language Turkish Tobacco Use: Never used Family History Hx Contributory? No Review of Systems Review of Systems Constitutional: Reports: see HPI. Comments Patient unable to provide review of systems due to dementia. Physical Exam Physical Exam Respiratory: SEE BELOW Comments: Gen.: Well-nourished, well-developed, no acute respiratory distress. thin. Head: Normocephalic, atraumatic. Eyes: Normal inspection bilaterally Ears: Normal inspection bilaterally Nose: Normal inspection Throat/mouth : Moist mucosa Neck: Supple, full range of motion, no goiter Heart: Regular rate and rhythm, no murmurs rubs or gallops Lungs: Clear to auscultation bilaterally with normal air entry Chest: Nontender Back: Normal range of motion Abdomen: Soft, nontender, nondistended, normal bowel sounds Extremities: Normal range of motion grossly, equal radial pulses, no cyanosis clubbing or edema Neurologic: Cranial nerves grossly intact, speech is clear Skin: warm and dry Psychiatric: Calm, cooperative, no apparent delusions or hallucinations Core Measures ACS in differential dx? No CVA/TIA Diagnosis No Sepsis Present: No Sepsis Focused Exam Completed? No Progress Differential Diagnosis: bronchitis, CHF, COPD, pneumonia Plan of Care: Orders Procedure Date/time Status Regular Diet 07/06 D Active Telemetry/Table Inspector 07/06 1243 Active TROPONIN LEVEL 07/06 1243 Complete MAGNESIUM 07/06 1243 Complete CBC WITHOUT DIFFERENTIAL 07/06 1243 Complete B-TYPE NATRIURETIC PEP (BNP) 07/06 124 Complete BASIC METABOLIC PANEL 07/06 1243 Complete EKG 07/06 1243 Active Laboratory Tests 07/06/18 1228: Anion Gap 10, Estimated GFR > 60, BUN/Creatinine Ratio 32.0 H, Glucose 96, Calcium 9.8, Magnesium 2.0, Troponin I < 0.01, Iyz-N-Unwggkayycp Pept 94.0, CBC w Diff NO MAN DIFF REQ, RBC 3.41 L, MCV 90.5, MCH 30.4, MCHC 33.6, RDW 21.1 H, MPV 6.7 L, Gran % 82.4 H, Lymphocytes % 10.0 L, Monocytes % 6.3, Eosinophils % 0.7, Basophils % 0.6, Absolute Granulocytes 6.5, Absolute Lymphocytes 0.8 L, Absolute Monocytes 0.5, Absolute Eosinophils 0.1, Absolute Basophils 0 Diagnostic Imaging: Discussed w/RAD: Radiology Read. CXR Impression: PATIENT: RAUL SAMSON PRESENT AGE: 72 PATIENT ACCOUNT NO: [id number] : 45 LOCATION: [facility] ORDERING PHYSICIAN: Edouard Drew MD SERVICE DATE: 07/06/18 EXAM TYPE: RAD - XRY-PORTABLE CHEST XRAY EXAMINATION: XR PORTABLE CHEST CLINICAL INFORMATION: Loose cough. Presumptive diagnosis of CHF, infiltrate. COMPARISON: Chest x-ray dated 2017. CTA of the chest dated 05/22/2018. TECHNIQUE: Portable frontal view of the chest was obtained. FINDINGS: The cardiomediastinal silhouette is within normal limits in size. Ectasia and tortuosity of the aorta is seen. Lungs bilaterally are symmetrically expanded and clear. No focal consolidation, effusion or pneumothorax is seen. Convex right thoracolumbar scoliosis and multilevel mild degenerative changes in the spine again seen. Osteopenia is suspected. Metallic densities seen projected over the left upper chest, likely a pulse oximeter. IMPRESSION: No acute cardiopulmonary process seen. DICTATED BY: Megan Casas MD DATE/TIME DICTATED:07/06/181312 GLASS PRESSER:PHILOMENA DATE/TIME TRANSCRIBED:07/06/181312 CONFIDENTIAL, DO NOT COPY WITHOUT APPROPRIATE AUTHORIZATION. <Electronically signed in Other Vendor System> SIGNED BY: Megan Casas MD 07/06/18 1321 Initial ED EKG: NSR, rate (78), nonspecific ST T wave chg Prior EKG: unchanged Comments: 07/06/2018 5:05:41 PM I have updated the patient and daughter on test results. Patient's oxygen saturation is 99% on room air. She appears comfortable. Her daughter was concerned because at home she had a pulse ox in the 50s as determined by her computer aide. I suspect it was a spurious result as the patient was apparently not dyspneic at that time. I feel she is stable for outpatient follow-up with her appointment tomorrow with her PCP. Departure Departure Disposition: HOME OR SELF CARE Condition: Stable Clinical Impression Primary Impression: Low O2 saturation Referrals: Guadalupe Roy MD (PCP/Family) Additional Instructions: Follow-up as scheduled tomorrow with your PCP. From what has been described, I feel the low pulse oximetry at home was not a true value. Return if any concerns or sudden worsening. Departure Forms: Customer Survey General Discharge Information Critical Care Note Critical Care Note Critical Care Time: non-applicable
[2018-07-06] MEDS ORDERED: FERROUS SULFAT325 M3 PO (12:51)
--- NOTE | 2018-07-06 13:21 | RADIOLOGY REPORT ---
EXAMINATION: XR PORTABLE CHEST CLINICAL INFORMATION: Loose cough. Presumptive diagnosis of CHF, infiltrate. COMPARISON: Chest x-ray dated 06/23/2018. CTA of the chest dated 05/22/2018. TECHNIQUE: Portable frontal view of the chest was obtained. FINDINGS: The cardiomediastinal silhouette is within normal limits in size. Ectasia and tortuosity of the aorta is seen. Lungs bilaterally are symmetrically expanded and clear. No focal consolidation, effusion or pneumothorax is seen. Convex right thoracolumbar scoliosis and multilevel mild degenerative changes in the spine again seen. Osteopenia is suspected. Metallic densities seen projected over the left upper chest, likely a pulse oximeter. IMPRESSION: No acute cardiopulmonary process seen.
[2018-07-06 13:40] LABS: ABSOLUTE BASOPHIL COUNT 0 /CUMM (0.0-0.2); ABSOLUTE EOSINOPHIL COUNT 0.1 /CUMM (0.0-0.7); ABSOLUTE GRANULOCYTE CT 6.5 /CUMM (1.4-6.5); ABSOLUTE LYMPH COUNT 0.8 /CUMM (1.2-3.4); ABSOLUTE MONOCYTE COUNT 0.5 /CUMM (0.10-0.60); BASOPHIL % 0.6 % (0.0-2.0); EOSINOPHIL % 0.7 % (0-5); HEMATOCRIT 30.8 % (37-47); MEAN CORPUSCULAR HGB 30.4 PG (27.0-31.0); MEAN CORPUSCULAR HGB CONC 33.6 G/DL (33.0-37.0); MEAN CORPUSCULAR VOLUME 90.5 FL (81.0-99.0); MEAN PLATELET VOLUME 6.7 FL (7.4-10.4); RBC DISTRIBUTION WIDTH 21.1 % (11.5-14.5); RED BLOOD CELL CT 3.41 /CUMM (4.20-5.40); WHITE BLOOD CELL COUNT 7.9 /CUMM (4.8-10.8)
[2018-07-06 14:06] LABS: GRANULOCYTE % 82.4 % (42.2-75.2)
[2018-07-06 14:07] LABS: PLATELET COUNT 540 /CUMM (130-400)
[2018-07-06 20:04] VITALS: BP 151/69
== END 2018-07-06 20:15 ==
LOC: ERH 11:27
PROVIDERS: Emergency Medicine
DX: R09.02 Hypoxemia (principal); R05 Cough; F03.90 Unspecified dementia, unspecified severity, without behavioral disturbance, psychotic disturbance, mood disturbance, and anxiety; G20 Parkinson's disease; I50.9 Heart failure, unspecified; J44.9 Chronic obstructive pulmonary disease, unspecified
CPT/HCPCS: 71045; 93005; 93010